=== PATIENT | female | born 1960 | race Caucasian/White ===

== ENCOUNTER → 2017-08-21 10:23 | Outpatient (CLI) | payer OTHER, SELFPAY ==
--- NOTE | 2017-08-21 10:29 | MM_ITS ---
MM Dig screening mamm BI w/CAD CAD Screening COMPARISON: Digital mammograms 07/26/2014 and 08/02/2016 INDICATION: There is a history of breast cancer in patient's paternal aunt. TECHNIQUE: Standard CC and MLO images were obtained. R2 CAD reviewed. FINDINGS: Scattered fibro glandular densities are seen throughout both breasts as noted previously. There is no suspicious lesion and no suspicious microcalcifications. IMPRESSION: Stable exam no suspicious lesion seen recommend yearly follow-up BI-RADS Category: 2 Benign Finding(s) RECOMMENDED FOLLOW-UP: 1YR - 1 YEAR FOLLOW-UP (A letter has been sent to the patient regarding results of the study.)
== END ==
PROVIDERS: Family Provider Family Medicine; PCP Family Medicine; Visit Provider Nurse Practitioner Obstetrics & Gynecology
DX: Z12.31 Encounter for screening mammogram for malignant neoplasm of breast (principal)
CPT/HCPCS: 77067

== ENCOUNTER → 2017-10-10 08:38 | Outpatient (CLI) | payer OTHER, SELFPAY ==
[2017-10-10 09:34] LABS: Basophils # 0.1 K/mm3 (0-0.2); Basophils % 0.7 % (0.1-2.0); Eosinophils # 0.2 K/mm3 (0.0-0.4); Eosinophils % 2.9 % (0.1-12.0); Hematocrit 42.1 % (37.0-47.0); Hemoglobin 13.8 g/dL (12.2-16.2); Lymphocytes # 2.1 K/mm3 (0.7-4.5); Lymphocytes % 31.6 K/mm3 (10-50); Mean Corpuscular HGB Conc 32.8 g/dL (31.8-35.4); Mean Corpuscular Volume 91.7 fl (81-99); Mean Platelet Volume 8.8 fl (7.4-10.4); Monocytes # 0.3 K/mm3 (0.1-1.0); Monocytes % 4.8 % (1.7-9.3); Platelet Count 297 K/mm3 (142-424); Red Blood Count 4.59 M/mm3 (4.20-5.40); Red Cell Distribution Width 12.3 % (11.5-17.5); White Blood Count 6.7 K/mm3 (4.8-10.8)
[2017-10-10 10:31] LABS: Alanine Aminotransferase 43 U/L (12-78); Albumin/Globulin Ratio 1.3 (1.1-1.8); Alkaline Phosphatase 87 U/L (46-116); Anion Gap 10.2 mEq/L (5-15); Aspartate Amino Transferase 16 U/L (15-37); Bilirubin,Total 0.4 mg/dL (0.2-1.0); Blood Urea Nitrogen 16 mg/dL (7-18); Calcium 9.1 mg/dL (8.5-10.1); Carbon Dioxide 30 mmol/L (21.0-32.0); Chloride 104 mmol/L (98-107); Chol/HDL Ratio 3.3 (1-3.5); Cholesterol 144 mg/dL (140-200); Creatinine,Serum 0.74 mg/dL (0.55-1.02); Estimated Glomerular Filt Rate 81 ml/min (>60); Free Thyroxine Index 2.7 ug/dL (5.93-13.13); GFR (African American) 98 ML/MIN (>60); Globulin 3.2 gm/dl (1.3-3.2); Glucose 94 mg/dL (74-106); HDL Cholesterol 44 mg/dL (29-89); LDL Cholesterol 78 mg/dL (0-130); Potassium 4.2 mmoL/L (3.5-5.1); Sodium 140 mmol/L (136-145); T4 (Thyroxine) 8.4 ug/dl (4.7-13.3); Thyroid Stimulating Hormone 1.95 uIU/ml (0.358-3.740); Total Protein,Serum 7.2 gm/dL (6.4-8.2); Triglycerides 110 mg/dL (30-200); Triiodothryronine (T3) Uptake 32 % (31-39); VLDL Cholesterol 22 mg/dL (0-40)
[2017-10-11 08:20] LABS: Thyroid Peroxidase Antibodies 8 IU/mL (0-34)
[2017-10-11 18:41] LABS: Triiodothyronine (T3) Free 3.5 pg/mL (2.0-4.4)
== END ==
PROVIDERS: Visit Provider Nurse Practitioner Obstetrics & Gynecology
DX: Z01.419 Encounter for gynecological examination (general) (routine) without abnormal findings (principal); R53.83 Other fatigue
CPT/HCPCS: 36415; 80053; 80061; 84436; 84443; 84479; 84481; 85025; 86376

== ENCOUNTER → 2018-08-24 08:14 | Outpatient (CLI) | payer OTHER, SELFPAY ==
--- NOTE | 2018-08-24 08:16 | MM_ITS ---
MM Dig screening mamm BI w/CAD CAD Screening COMPARISON: Digital mammograms with CAD 08/02/2016 and 08/21/2017 INDICATION: There is a history of breast cancer patient's paternal aunt. TECHNIQUE: Standard CC and MLO images were obtained. R2 CAD reviewed. FINDINGS: Scattered fibro glandular densities are seen in both breast. Slightly asymmetric increased glandular densities are seen upper outer quadrant left breast they are stable and unchanged from previous exams. There is no suspicious lesion and there are no suspicious microcalcifications. IMPRESSION: Fibrofatty parenchyma with no suspicious lesion seen BI-RADS Category: 1 Negative RECOMMENDED FOLLOW-UP: 1YR - 1 YEAR FOLLOW-UP (A letter has been sent to the patient regarding results of the study.)
== END ==
PROVIDERS: PCP Family Medicine; Visit Provider Nurse Practitioner Obstetrics & Gynecology
DX: Z12.31 Encounter for screening mammogram for malignant neoplasm of breast (principal)
CPT/HCPCS: 77067

== ENCOUNTER → 2019-09-06 08:21 | Outpatient (CLI) | payer OTHER, SELFPAY ==
--- NOTE | 2019-09-06 08:21 | MM_ITS ---
PROCEDURE: MM DIG SCREENING MAMM BI W/CAD Digital Breast Tomosynthesis Included CLINICAL INDICATION: screening xmg COMPARISON: MM MAMMO DIGITAL SCREENING W CAD BILAT from 08/02/2016 [facility] MM Dig screening mamm BI w/CAD from 08/21/2017 [facility] MM Dig screening mamm BI w/CAD from 08/24/2018 TECHNIQUE: Standard CC and MLO images and 3D Tomosynthesis was obtained. R2 CAD reviewed. FINDINGS: Scattered fibroglandular densities are seen in the central portions of both breasts. There is a stable tiny nodular density near the axillary tail left breast. There is no suspicious lesion and no suspicious microcalcifications. IMPRESSION: Fibrofatty parenchyma with no suspicious lesions seen BI-RAD Category: 2 Benign Finding(s) FOLLOW-UP: 1YR 1 Year Follow-up (A letter has been sent to the patient regarding results of the study.) Dictated by: Dr. Gregory Paris MD 09/06/2019 19:[address] Gregory Paris MD in [place] 09/06/2019 19:23
== END ==
PROVIDERS: PCP Family Medicine; Visit Provider Nurse Practitioner Obstetrics & Gynecology
DX: Z12.31 Encounter for screening mammogram for malignant neoplasm of breast (principal)
CPT/HCPCS: 77063; 77067

== ENCOUNTER → 2020-05-27 10:02 | Outpatient (CLI) | payer OTHER, SELFPAY ==
[2020-05-27 11:30] LABS: Coronavirus 19 IgG Antibody Negative (Negative); Coronavirus 19 IgM Antibody Negative (Negative)
== END ==
PROVIDERS: Visit Provider Internal Medicine Gastroenterology
DX: Z01.818 Encounter for other preprocedural examination (principal); Z11.52 Encounter for screening for COVID-19; Z12.11 Encounter for screening for malignant neoplasm of colon
CPT/HCPCS: 36415; 86328

== ENCOUNTER 2020-05-29 10:28 | Day surgery (SDC) | payer OTHER, SELFPAY ==
[2020-05-22 12:53] VITALS: BMI 26.7
[2020-05-29 10:51] VITALS: BP 129/68; PULSE 80; RESP 16; TEMP 36.1; O2SAT 99
[2020-05-29 11:10] VITALS: O2SAT 99
--- NOTE | 2020-05-29 11:15 | HMH.ANESCL ---
[facility] Anesthesia Checklist - Patient Identification Patient Identification: Arm Band - Structural Data Admitted From: Home Planned Operative Procedure/s: colonoscopy Consent for Planned Operative Procedure(s) Verified: Yes Verified Documents: Surgical Consent, History and Physical - NPO Status Verified Time NPO: 00:00 - Additional verifications Anesthesia Reactions: No - Airway Assessment C-Spine Mobility Assessed: Yes (mp2) TMJ Mobility Assessed: Yes Dentition: Good Dentition - Neurological Assessment Level of Consciousness: Awake, Alert - Anesthesia Plan Anesthesia Risk discussed: Yes Anesthesia Plan: Verified ASA Class: II Anesthesia Type: MAC [facility] History I have reviewed the patient's past medical history: Yes Medical History: Reports:: Hyperlipidemia Denies:: Cancer, Diabetes Mellitus Type 1, Diabetes Mellitus Type 2, Internal Pacemaker, MRSA, Seizures *Have you ever received a pneumonia vaccine?: No *Have you received a flu vaccine this season?: Yes Anesthesia experience/problems:: nac Other Surgeries: Yes: Hysterectomy-Total, Tubal Ligation. No: Pacemaker Amputation: No Fractures: No - *Social History Last grade of school completed: Some college Smoking Status: Former smoker Smoking End Date: 05/06/1990 Alcohol Intake: never Substance Use Type: denies use *Occupational Status:: retired Housing: house Household Members: spouse *Travel in the last 8 weeks: None Family Hx:: Heart Attack, Stroke FLYER MAKER history: Tubal Ligation
--- NOTE | 2020-05-29 11:42 | P.PCN_ITS ---
[facility] Procedure Note Procedure Note:: Colonoscopy Procedure Report: Colonoscopy Endoscopist: Scottie Vila II, MD Referring physician: Berny Reynoso MD Date of Procedure: May 29, 2020 Equipment: Olympus 180 variable stiffness pediatric colonoscope Sedation: MAC sedation Indication: Mrs. Meng is a 59-year-old female who is here for screening/surveillance colonoscopy. She did have a colonoscopy 7 to 8 years ago which was normal. She does state that she did not have a complete bowel preparation at that time. She reports no abdominal pain, weight loss, change in bowel habits or family history of colon cancer. She does have some mild chronic constipation. She does report some occasional hemorrhoidal bleeding. Procedure: Prior to the procedure, a history and physical exam was performed, and patient's medications and allergies were reviewed. The risks, benefits and alternatives of the sedation and procedure were discussed with the patient. All questions were answered and informed consent was obtained. The patient was brought to the procedure room. Patient identification and proposed procedure were verified by the physician and the nurse. The patient was placed in a left lateral decubitus position and the scope was passed under direct vision. Throughout the procedure, the patient's blood pressure, pulse, and oxygen saturations were monitored continuously. The colonoscopy was accomplished without difficulty. The patient tolerated the procedure well. Findings: On digital rectal examination there was normal rectal tone. There were no external hemorrhoids. The colonoscope was introduced through the anal canal to the rectum and advanced to the cecum. The ileocecal valve and appendiceal orifice were identified. The scope was advanced a short distance into the ileum which appeared grossly normal. The scope was then withdrawn into the colon. The cecum, ascending and transverse colon and mucosa were grossly normal. There were scattered diverticuli throughout the descending and sigmoid colon (LEFT colon). The rectum itself was normal. Upon retroflexion within the rectum there were grade 1-2 internal hemorrhoids. The preparation was good throughout with Sharon Preparation Score of 8 out of 9. The cecal time was 10 minutes. Impression: 1. Left-sided diverticulosis 2. Grade 1-2 internal hemorrhoids Plan: The patient will not require screening/surveillance colonoscopy again for 10 years by ACS guidelines. I would encourage/recommend a fiber bowel regimen on a long-term daily maintenance basis.
[2020-05-29 11:43] VITALS: BP 91/45; PULSE 58; RESP 12; TEMP 36.2; O2SAT 97
[2020-05-29 11:53] VITALS: BP 100/51; PULSE 52; RESP 12; O2SAT 99
[2020-05-29 12:03] VITALS: BP 132/56; PULSE 68; RESP 16; O2SAT 100
[2020-05-29 12:13] VITALS: BP 121/65; PULSE 65; RESP 16; TEMP 36.2; O2SAT 99
== END 2020-05-29 12:15 | disposition home or self-care (01) ==
LOC: OUTP 10:29
PROVIDERS: PCP Family Medicine; Visit Provider Internal Medicine Gastroenterology
PROC: 0DJD8ZZ Inspection of Lower Intestinal Tract, Via Natural or Artificial Opening Endoscopic (ICD-10-PCS; CPT 45378; principal; 2020-05-29 11:30)
DX: Z12.11 Encounter for screening for malignant neoplasm of colon (principal); K57.30 Diverticulosis of large intestine without perforation or abscess without bleeding; K64.0 First degree hemorrhoids; E78.5 Hyperlipidemia, unspecified; Z90.710 Acquired absence of both cervix and uterus; Z87.891 Personal history of nicotine dependence; Z82.3 Family history of stroke
CPT/HCPCS: 45378

== ENCOUNTER → 2020-09-06 07:45 | Outpatient (CLI) | payer OTHER, SELFPAY ==
--- NOTE | 2020-09-06 07:49 | MM_ITS ---
PROCEDURE: MM DIG SCREENING MAMM BI W/CAD Digital Breast Tomosynthesis Included CLINICAL INDICATION: screening xmg There is no personal or family history of breast cancer. The patient currently is on estrogen. COMPARISON: [facility] MM Dig screening mamm BI w/CAD from 08/21/2017 [facility] MM Dig screening mamm BI w/CAD from 08/24/2018 MG MM DIG SCREENING MAMM BI W/CAD from 09/06/2019 TECHNIQUE: Standard CC and MLO images and 3D Tomosynthesis was obtained. R2 CAD reviewed. FINDINGS: Mild scattered fibroglandular densities are seen in both breast and the findings are bilateral and symmetrical. A stable tiny benign-appearing nodular density axillary tail left breast. There are no CAD markings. There are couple of benign-appearing microcalcifications in each breast. There is no suspicious lesion and no suspicious microcalcifications. IMPRESSION: Stable exam with moderate breast density and no suspicious lesions seen BI-RAD Category: 2 Benign Finding(s) FOLLOW-UP: 1YR 1 Year Follow-up (A letter has been sent to the patient regarding results of the study.) Dictated by: Dr. Gregory Paris MD 09/08/2020 11:41 Dr. Gregory Paris MD in [place] 09/08/2020 11:41
== END ==
PROVIDERS: PCP Family Medicine; Visit Provider Nurse Practitioner Obstetrics & Gynecology
DX: Z12.31 Encounter for screening mammogram for malignant neoplasm of breast (principal)
CPT/HCPCS: 77063; 77067

== ENCOUNTER → 2021-05-31 11:07 | Outpatient (CLI) | payer OTHER, SELFPAY ==
[2021-05-31 11:37] LABS: Adenovirus,PCR Not Detected (NotDetected); Bordetella Pertussis Not Detected (NotDetected); Chlamydophila Pneumoniae, PCR Not Detected (NotDetected); Coronavirus 229E Not Detected (NotDetected); Coronavirus NL63 Not Detected (NotDetected); Coronavirus OC43 Not Detected (NotDetected); Coronovirus HKU1,PCR Not Detected (NotDetected); Influenza A, PCR Not Detected (NotDetected); Influenza AH1, 2009 Not Detected (NotDetected); Influenza AH1, PCR Not Detected (NotDetected); Influenza AH3,PCR Not Detected (NotDetected); Influenza B, PCR Not Detected (NotDetected); Mycoplasma Pneumoniae, PCR Not Detected (NotDetected); Parainfluenza 1, PCR Not Detected (NotDetected); Parainfluenza 2, PCR Not Detected (NotDetected); Parainfluenza 3, PCR Not Detected (NotDetected); Parainfluenza 4, PCR Not Detected (NotDetected); Respiratory Syncytial Virus Not Detected (NotDetected); Rhinovirus/Enterovirus Not Detected (NotDetected)
[2021-05-31 11:48] LABS: Basophils # 0.1 K/mm3 (0-0.2); Basophils % 1.4 % (0.1-2.0); Eosinophils # 0.2 K/mm3 (0.0-0.4); Eosinophils % 4.9 % (0.1-12.0); Hematocrit 41.9 % (37.0-47.0); Hemoglobin 13.5 g/dL (12.2-16.2); Lymphocytes # 1.4 K/mm3 (0.7-4.5); Lymphocytes % 32.6 % (10-50); Mean Corpuscular HGB Conc 32.3 g/dL (31.8-35.4); Mean Corpuscular Hemoglobin 30.4 pg (27.0-31.2); Mean Corpuscular Volume 94.1 fl (81-99); Mean Platelet Volume 9.8 fl (7.4-10.4); Monocytes # 0.3 K/mm3 (0.1-1.0); Monocytes % 6.2 % (1.7-9.3); Neutrophils # 2.3 K/mm3 (1.8-7.8); Neutrophils % 54.8 % (37.0-80.0); Platelet Count 231 K/mm3 (142-424); Red Blood Count 4.46 M/mm3 (4.20-5.40); Red Cell Distribution Width 12.7 % (11.5-17.5); White Blood Count 4.2 K/mm3 (4.8-10.8)
[2021-05-31 16:39] LABS: Human Metapneumovirus Detected (NotDetected)
== END ==
PROVIDERS: PCP Family Medicine; Visit Provider Physician Assistant
DX: Z20.822 Contact with and (suspected) exposure to COVID-19 (principal); B97.81 Human metapneumovirus as the cause of diseases classified elsewhere
CPT/HCPCS: 36415; 85025; 87486; 87581; 87632; 87798; C9803; U0003; U0005

== ENCOUNTER → 2021-09-07 10:16 | Outpatient (CLI) | payer SELFPAY ==
--- NOTE | 2021-09-07 10:20 | MM_ITS ---
PROCEDURE INFORMATION: Exam: MG Bilateral Screening 3D Mammography Exam date and time: 09/07/2021 10:21 AM Age: 60 years old Clinical indication: Screening examination TECHNIQUE: Imaging protocol: Bilateral Screening tomosynthesis and 2D mammography including computer-aided detection (CAD) when performed. COMPARISON: 1. MG MM DIG SCREENING MAMM BI W/CAD 09/06/2020 8:07 AM 2. MG MM DIG SCREENING MAMM BI W/CAD 09/06/2019 8:28 AM FINDINGS: MAMMOGRAPHY: Breast composition: The breast tissue is composed of scattered areas of fibroglandular density. Mass: None. Architectural distortion: None. Calcifications: No suspicious calcifications. Asymmetric density: None. Skin thickening: None. Axillary adenopathy: None. IMPRESSION: No mammographic evidence of malignancy. Annual screening is recommended unless otherwise clinically indicated. ASSESSMENT: BI-RADS Category 1: Negative
== END ==
PROVIDERS: PCP Family Medicine; Visit Provider Nurse Practitioner Obstetrics & Gynecology
DX: Z12.31 Encounter for screening mammogram for malignant neoplasm of breast (principal)
CPT/HCPCS: 77063; 77067

== ENCOUNTER 2023-11-03 09:46 | Outpatient (CLI) | payer BC, SELFPAY ==
--- NOTE | 2023-11-03 09:47 | MM_ITS ---
PROCEDURE INFORMATION: Exam: MG Bilateral Screening 3D Mammography Exam date and time: 11/03/2023 9:50 AM Age: 62 years old Clinical indication: Screening examination TECHNIQUE: Imaging protocol: Bilateral Screening tomosynthesis and 2D mammography including computer-aided detection (CAD) when performed. COMPARISON: 1. MG MM DIG SCREENING MAMM BI W/CAD 09/07/2021 10:21 AM 2. MG MM DIG SCREENING MAMM BI W/CAD 09/06/2020 8:07 AM FINDINGS: MAMMOGRAPHY: Breast composition: There are scattered areas of fibroglandular density. Mass: None. Architectural distortion: None. Calcifications: No suspicious calcifications. Asymmetric density: None. Skin thickening: None. Axillary adenopathy: None. IMPRESSION: No mammographic evidence of malignancy. Annual screening is recommended unless otherwise clinically indicated. ASSESSMENT: BI-RADS Category 1: Negative
== END 2023-11-03 23:59 | disposition home or self-care (01) ==
LOC: RAD 09:47
PROVIDERS: PCP Family Medicine; Visit Provider Nurse Practitioner Obstetrics & Gynecology
DX: Z12.31 Encounter for screening mammogram for malignant neoplasm of breast (principal)
CPT/HCPCS: 77063; 77067

== ENCOUNTER 2024-01-08 08:47 | Outpatient (CLI) | payer BC, SELFPAY ==
--- OUTSIDE RECORDS SUMMARY | 2024-01-08 08:50 | XMS_ITS ---
Author Organization [facility] Address [address] [facility] [address] [place] [id number] Care Team Providers Care Demonstrator Sales Name Role Phone Berny Reynoso Primary Care Provider Cheryle Brownlee Unavailable [phone] REASON FOR VISIT blood work MEDICATIONS Medication SIG (Take, Route, Frequency, Duration) Notes [...] Active Encounters Encounter Location Date Provider Diagnosis [place] [address] [place] [id number] 01/08/2024 Cheryle Brownlee Hyperlipidemia E78.5 and Weight loss R63.4 ASSESSMENTS Encounter Date Diagnosis Assessment Notes Treatment Notes Treatment Clinical Notes 01/08/2024 Hyperlipidemia (ICD-10 - E78.5) 01/08/2024 Weight loss (ICD-10 - R63.4) PLAN OF TREATMENT Pending Test Test Name Order Date H-TSH 01/08/2024 H-Lipid Panel 01/08/2024 H-CMP 01/08/2024 H-Glycohemoglobin A1C 01/08/2024 Next Appt Details Provider Name:Cheryle sheehan, 01/08/2024 08:15:00 AM, [address] [facility], [address], [place], [id number],
--- OUTSIDE RECORDS SUMMARY | 2024-01-08 08:50 | XMS_ITS ---
Author Organization [place] Address [address] [facility] [address] [place] [id number] Care Team Providers Care Automotive Design Layout Drafter Name Role Phone Berny Reynoso Primary Care Provider Cheryle Brownlee Unavailable [phone] ALLERGIES No Known Allergies REASON FOR VISIT spot on neck and discuss weight loss MEDICATIONS Medication SIG (Take, Route, Frequency, Duration) Notes Start Date End Date Status Sertraline HCl 25 MG Take 1 tablet by mo [facility] once daily for 90 Active Diflucan 150 MG 1 tablet Orally qd f or 1 day 01/06/2024 Active Wegovy 1 MG/0.5ML 0.5 ml Subcutaneous weekly for 30 day(s) 01/06/2024 Active Doxycycline Monohydrate 100 MG 1 capsule Orally Twice a day for 14 day(s) 01/06/2024 Active Omeprazole 40 MG 1 capsule Orally at bedtime Active Simvastatin 40 MG TAKE 1 TABLET BY CHASITY ONCE DAILY AT BEDTIME for 90 days Active VITAL SIGNS Weight 191 lbs 01/06/2024 Blood pressure systolic 122 mm Hg 01/06/20 24 Blood pressure diastolic 82 mm Hg 024 Heart Rate 62 /min 01/06/2024 Height 68 in 01/06/2024 BMI 29.04 kg/m2 01/06/2024 Encounters Encounter Location Date Provider Diagnosis [place] [address] [facility] [address] [place] [id number] 01/06/2024 Cheryle Brownlee Weight loss R63.4 ; Tick bite W57.XXXA and Hyperlipidemia E78.5 ASSESSMENTS Encounter Date Diagnosis Assessment Notes Treatment Notes Treatment Clinical Notes 01/06/2024 Weight loss (ICD-10 - R63.4) discussed healthy eating with food choices and portion sizes; also discussed ongoing exercise 01/06/2024 Tick bite (ICD-10 - W57.XXXA) 01/06/2024 Hyperlipidemia (ICD-10 - E78.5) 01/06/2024 Other to RTC fasting for CMP, A1c TSH, and Lipids PLAN OF TREATMENT Medication Medication Name Sig Start Date Stop Date Notes Diflucan 150 MG 1 tablet Orally qd for 1 day 01/06/2024 Wegovy 1 MG/0.5ML 0.5 ml Subcutaneous weekly for 30 day(s) 01/06/2024 Doxycycline Monohydrate 100 MG 1 capsule Orally Twice a day for 14 day(s) 01/06/2024 Treatment Notes Assessment Notes Weight loss discussed healthy ea ting with food choices and portion sizes; also discussed ongoing exercise Other to RTC fasting for C MP, A1c TSH, and Lipids Next Appt Details Follow Up: 4 weeks after sta rting med, Reason: Provider Name:Cheryle Shae sheehan, 01/08/2024 08:15:00 AM, [address] [facility] [address] [facility], [address], [place], [place], [id number], Progress Notes * Examination Category Sub-Category Detail Notes General Examination Heart: RRR Lungs: CTAB A&P General Appearance: NAD, appears healthy , alert, pleasant, well nourished and hydrated Skin: flesh colored papule on upper mid back; no erythema or edema; NTTP; no rashes Neurologic Exam: alert and oriented
--- OUTSIDE RECORDS SUMMARY | 2024-01-08 08:50 | XMS_ITS ---
Author Organization [facility] Address [address] [facility] 36 [facility] [address] [place] [id number] Care Team Providers Care Global Marketing Manager Name Role Phone Berny Reynoso Primary Care Provider Cheryle Brownlee Unavailable [phone] REASON FOR VISIT Message MEDICATIONS Medication SIG (Take, Route, Fr equency, Duration) Notes Start Date End Date Status Zepbound 2.5 MG/0.5ML 0.5 mL Subcutaneou s weekly for 30 day(s) 01/07/2024 Active Encounters Encounter Location Date Provider Diagnosis [facility] [address] [facility] [address] [place] [id number] 01/07/2024 Cheryle Brownlee PLAN OF TREATMENT Medication Medication Name Sig Start Date Stop Date Notes Zepbound 2.5 MG/0.5ML 0.5 mL Subcutaneou s weekly for 30 day(s) 01/07/2024 Next Appt Details Provider Name:Cheryle sheehan, 01/08/2024 08:15:00 AM, [address], [address], [place], [phone],
--- OUTSIDE RECORDS SUMMARY | 2024-01-08 08:51 | XMS_ITS | Patient Health Record ---
Author Organization [facility] Address [address] [facility] [address] [id number] Care Team Providers Care Commissioned Police Officer Name Role Phone Berny Reynoso Primary Care Provider Cheryle Brownlee Unavailable [phone] Rylie Mclean Unavailable [phone] ALLERGIES No Known Allergies RESULTS Component Value Reference Range Notes CBC Venipuncture (in house) Reviewed date:05/22/2023 11:09:11 AM Interpretation: Performing Lab: Notes/Report: wbc 5.5 3.5 - 10 lymph 33.2 15 - 50 mid 7.7 2 - 15 gran 59.1 35 - 80 rbc 4.50 3.5 - 5.5 hgb 13.4 11.5 - 16.5 hct 40.4 35 - 55 mcv 89.7 75 - 100 mch 29.7 25 - 35 mchc 33.1 31 - 38 platlet 278 100 - 400 P-Amylase Reviewed date:05/23/2023 08:36:06 AM Interpretation: Performing Lab: Notes/Report: Test performed by [email or web address] [address] [place] [address] , [address], [place] [address] Andres Koroma MD, Signal And Communications Maintainer CLIA: [id number] Amylase 30 28-100 U/L P-Comprehensive Metabolic Pa faizan (CMP) Reviewed date:05/23/2023 08:36:06 AM Interpretation:glucose 118, not fasting Performing Lab: Notes/Report: Test performed by [email or web address] [address] [place] [address] , [address], [place] [address] Andres Koroma MD, [employer] Maintainer CLIA: [id number] Sodium 142 135-145 mEq/L Potassium 4.2 3.5-5.3 mEq/L Chloride 105 97-108 mEq/L CO2 25 22-32 mEq/L Glucose 118 65-99 mg/dL BUN 16 8-23 mg/dL Creatinine 0.80 0.50-1.00 mg/dL Calcium 9.6 8.6-10.4 mg/dL eGFR by Creatinine 83 >59 mL/min/1.73m2 Protein 7.5 6.0-8.3 g/dL Albumin 4.7 3.5-5.3 g/dL Alkaline Phosphatase 95 35-121 IU/L ALT (SGPT) 21 <5-47 IU/L AST (SGOT) 21 <5-40 IU/L Bilirubin, Total 0.4 <0.2-1.2 mg/dL A/G Ratio 1.7 1.1-2.5 mg/dL P-Lipase Reviewed date:05/23/2023 08:36:06 AM Interpretation: Performing Lab: Notes/Report: Test performed by [email or web address] [address] [place] [address] , [place] [address] Andres Koroma MD, Signal [employer] Maintainer CLIA: [id number] Lipase 32.0 13.0-60.0 u/L P-TSH reflex to FT4 Reviewed date:05/23/2023 08:36:06 AM Interpretation: Performing Lab: Notes/Report: Test performed by [email or web address] [address] [place] [address] , [address], [place] [id number] Andres Koroma MD, [employer] Maintainer CLIA: [id number] TSH reflex to FT4 1.96 0.43-5.25 mU/L Urinalysis - Inhouse Reviewed date:01/29/2023 09:14:24 AM Interpretation: Performing Lab: Notes/Report: Color/Clarity yellow/clear Leuk 1+ Nitrite neg Urobili 3.2 Protein neg pH 5.5 Blood neg Sp. Gr. 1.025 Ketone neg Bili neg Gluc neg bacteria WBC RBC P-Culture, Urine Reviewed date:01/31/2023 09:12:51 AM Interpretation:No sign growth Performing Lab: Notes/Report: Test performed by [email or web address] [address] [place] [address] , [address], [place] [address] Andres Koroma MD, Signal And Communications Maintainer CLIA: [id number] Specimen Source Urine - Void Culture, Urine See Below No Significan t Growth CBC Venipuncture (in house) Reviewed date:02/05/2023 09:19:12 AM Interpretation:Normal Performing Lab: Notes/Report: Normal wbc 7.8 3.5 - 10 lymph 33.6 15 - 50 mid 7.4 2 - 15 gran 59.0 35 - 80 rbc 4.64 3.5 - 5.5 hgb 14.0 11.5 - 16.5 hct 41.2 35 - 55 mcv 88.9 75 - 100 mch 30.3 25 - 35 mchc 34.0 31 - 38 platlet 299 100 - 400 Lipid Panel (in house) Reviewed date:02/05/2023 09:14:59 AM Interpretation:LDL 100 TG 138 HDL 54 Performing Lab: Notes/Report: LDL 100 TG 138 HDL 54 Total Cholesterol 182 0 - 200 md/dL HDL 54 45 - 45 mg/dL Trigs 138 0 - 150 LDL 100 0 - 100 mg/dL non-HDL 128 TC/HDL 3.4 P-Comprehensive Metabolic Pa faizan (CMP) Reviewed date:02/05/2023 09:18:55 AM Interpretation:Normal Performing Lab: Notes/Report: Test performed by [email or web address] [address] [place] [address] , [address], [place] [address] Andres Krooma MD, Signal And [employer] Maintainer CLIA: [id number] Sodium 141 135-145 mEq/L Potassium 4.7 3.5-5.3 mEq/L Chloride 103 97-108 mEq/L CO2 28 22-32 mEq/L Glucose 94 65-99 mg/dL BUN 16 8-23 mg/dL Creatinine 0.80 0.50-1.00 mg/dL Calcium 9.4 8.6-10.4 mg/dL eGFR by Creatinine 83 >59 mL/min/1.73m2 Protein 6.9 6.0-8.3 g/dL Albumin 4.5 3.5-5.3 g/dL Alkaline Phosphatase 92 35-121 IU/L ALT (SGPT) 26 <5-47 IU/L AST (SGOT) 18 <5-40 IU/L Bilirubin, Total 0.5 <0.2-1.2 mg/dL A/G Ratio 1.9 1.1-2.5 mg/dL P-TSH Reviewed date:02/05/2023 09:18:37 AM Interpretation:2.54 Performing Lab: Notes/Report: Test performed by [facility], [address] , [address], [place] [address] Andres Koroma MD, Signal And Communications Maintainer CLIA: [id number] TSH 2.54 0.43-5.25 mU/L TEN-stool panel Reviewed date:06/19/2023 01:23:38 PM Interpretation:Bacillus Cereus - Positive Performing Lab: Notes/Report: Bacillus Cereus - Positive MEDICATIONS Medication SIG (Take, Route, Frequency, Duration) Notes Start Date End Date Status Omeprazole 40 MG 1 capsule Orally at bedtime Active Wegovy 1 MG/0.5ML 0.5 ml Subcutaneous weekly for 30 day(s) 01/06/2024 Active Doxycycline Monohydrate 100 MG 1 capsule Orally Twice a day for 14 day(s) 01/06/2024 Active Simvastatin 40 MG TAKE 1 TABLET BY CHASITY TH ONCE DAILY AT BEDTIME for 90 days Active Sertraline HCl 25 MG Take 1 tablet by mo uth once daily for 90 Active Diflucan 150 MG 1 tablet Orally qd f or 1 day 01/06/2024 Active Zepbound 2.5 MG/0.5ML 0.5 mL Subcutaneou s weekly for 30 day(s) 01/07/2024 Active IMMUNIZATIONS Vaccine Route Administration Date Status Comme nts COVID 19 Shavon Unknown 08/02/2020 Administered COVID 19 Moderna Unknown 04/14/2021 Administered Fluzone Intradermal Quad private(18-64yrs) IM Intramuscular 01/30/2022 Administered Fluzone Intradermal Quad private(18-64yrs) IM Intramuscular 02/25/2023 Administered Fluzone PF Quad (6-35 months) Unknown 02/25/2017 Administered Fluzone PF Quad (6-35 months) Unknown 04/14/2021 Administered Fluzone Quad (6months&older) IM Intramuscular 02/25/2018 Administered Hepatitis A (adult) IM Intramuscular 02/25/2019 Administer ed Shingrix IM Intramuscular 05/02/2021 Administered Shingrix IM Intramuscular 01/30/2022 Administered xFlu shot- 6months-36 months of dll-[id number]-IHQS-trivalent Unknown 03/22/2016 Administered xFlu shot-36 months and older IM Intramuscular 04/30/2005 Administered xFlu shot-36 months and older Unknown 03/22/2016 Administered SOCIAL HISTORY Sex Assigned At : Social History Observation Description Sex Assigned At Unknown PROBLEMS Problem Type ICD Code Onset Dates Problem Status W/U Status Risk SNOMED Code Notes Problem Hyperlipidemia (272.4) Active confirmed Hyperlipidemia (89243410) Problem Insomnia (G47.00) Active confirmed Inso mnia (794466848) Problem Hyperlipidemia (E78.5) Active confirmed Hyperlipidemia (63319789) Problem Paresthesia (R20.2) Active confirmed Pa resthesia (51073713) Problem Flank pain (R10.9) Active confirmed Fla nk pain (374736679) Problem Polyarthritis (M13.0) Active confirmed Polyarthritis (688426806) Problem Pure hypercholesterolemia (E78.00) Active confirmed 982546118 Problem Urge incontinence of urine (N39.41) Active confirmed 08894188 Problem Gastroesophageal reflux disease, unspecified whether esophagitis present (K21.9) Active confirmed 656196390 VITAL SIGNS Heart Rate 62 /min 01/06/2024 Blood pressure diastolic 82 mm Hg 01/06/2024 Height 68 in 01/06/2024 Blood pressure systolic 122 mm Hg 01/06/2024 Weight 191 lbs 01/06/2024 BMI 29.04 kg/m2 01/06/2024 Encounters Encounter Location Date Provider Diagnosis [facility] [facility] [address] [facility] [address] [place] [id number] 01/28/2023 Cheryle Brownlee Pure hypercholesterolemia E78.00 ; Insomnia G47.00 ; Depression 311 and Urinary frequency R35.0 [facility] [address] [facility] [address] [place] [id number] 02/03/2023 Cheryle Brownlee Pure hypercholesterolemia E78.00 [facility] [address] [facility] [address] [place] [id number] 02/05/2023 Cheryle Brownlee [facility] [address] [place], [place] [id number] 02/25/2023 Cheryle Brownlee Candidiasis of perineum B37.49 ; Depression 311 and Candidiasis of breast B37.89 [facility] [address] [place], [place] [phone] 05/22/2023 Rylie Crowdy Chronic diarrhea K52 .9 ; Acute URI J06.9 and Gastroesophageal reflux disease, unspecified whether esophagitis present K21.9 [facility] [address] [place], [place] [id number] 05/23/2023 Rylie Crowdy [facility] [address] [place], [place] [id number] 06/11/2023 Rylie Muralidy [facility] [address] [place], [place] [id number] 06/16/2023 Rylie Muralidy [facility] [address] [place], [place] [id number] 01/06/2024 Cheryle Brownlee Weight loss R63.4 ; Tick bite W57.XXXA and Hyperlipidemia E78.5 [facility] [address] [place], [place] [id number] 01/07/2024 Cheryle Brownlee [facility] [address] [place], [place] [id number] 01/08/2024 Cheryle Brownlee Hyperlipidemia E78.5 and Weight loss R63.4 ASSESSMENTS Encounter Date Diagnosis Assessment Notes Treatment Notes Treatment Clinical Notes 01/28/2023 Pure hypercholestero lemia (ICD-10 - E78.00) 02/03/2023 Pure hypercholestero lemia (ICD-10 - E78.00) 02/25/2023 Depression (ICD-10 - 311) sl eeping better and will take trazodone prn 02/25/2023 Candidiasis of perin eum (ICD-10 - B37.49) keep areas dry 05/22/2023 Acute URI (ICD-10 - J06.9) 05/22/2023 Chronic diarrhea (IC D-10 - K52.9) Had a c-scope in 2019 which was normal other than hemorroids and diverticulosis. She does not require another one for 10 years. Will get labs and a stool panel to r/o infection. Pt will bring stool sample for TEN 01/06/2024 Weight loss (ICD-10 - R63.4) discussed healthy eating with food choices and portion sizes; also discussed ongoing exercise 01/06/2024 Tick bite (ICD-10 - W57.XXXA) 01/28/2023 Insomnia (ICD-10 - G47.00) s leep hygiene reviewed; suggested no caffeine after 4 PM and to eat lightly in the PM 01/08/2024 Hyperlipidemia (ICD- 10 - E78.5) 05/22/2023 Gastroesophageal ref lux disease, unspecified whether esophagitis present (ICD-10 - K21.9) 01/06/2024 Hyperlipidemia (ICD- 10 - E78.5) 02/25/2023 Candidiasis of breas t (ICD-10 - B37.89) keep areas dry 01/28/2023 Depression (ICD-10 - 311) 01/08/2024 Weight loss (ICD-10 - R63.4) 01/28/2023 Urinary frequency (I CD-10 - R35.0) 01/28/2023 Other will RTC for fasting labs to include CBC, CMP, TSH, LIPIDS; with return visit would like something to assist with weight loss 02/25/2023 Other lab results reviewed with pt 01/06/2024 Other to RTC fasting for CMP, A1c TSH, and Lipids PLAN OF TREATMENT Pending Test Test Name Order Date H-TSH 01/08/2024 H-Lipid Panel 01/08/2024 H-CMP 01/08/2024 H-Glycohemoglobin A1C 01/08/2024 Next Appt Details Provider Name:Cheryle sheehan, 01/08/2024 08:15:00 AM, [address], [address], [place], [phone], Insurance Providers Payer Name Payer Address Payer Phone Subscriber Number Group Number Insured Name Patient Relationship to Insured Coverage Start Date Coverage End Date JUDI [employer] [address] [place] [address] [phone] [id number] JESSICA BONILLA Self - patient is the insured MEDICATIONS ADMINISTERED Medication Instructions Date of Administration Dosage Notes B-12 02/16/2010 1 mL Depo- Medrol 40 mg/ml 02/01/2011 1 mL Dexamethasone 06/09/2006 1 mL Dexamethasone 04/11/2007 1 mL Dexamethasone 02/15/2009 1 cm3 Dexamethasone 05/22/2010 1 mL Dexamethasone 04/25/2014 1 mL Dexamethasone 05/17/2014 1 mL Dexamethasone 10/10/2018 1 mL MEDICAL (GENERAL) HISTORY Medical History History ICD Code hyperlipidemia Surgical History Surgery Date(Month/Year) hysterectomy abdominal Hospitalization History Reason Date(Month/Year) [facility] chest pains 06/06/13
[2024-01-08 09:54] LABS: Hemoglobin A1C 5.7 % (4.0-6.0)
[2024-01-08 09:59] LABS: Cholesterol 175 mg/dl (140-200); HDL Cholesterol 58 mg/dl (40-60); Triglycerides 127 mg/dl (30-150); VLDL Cholesterol 25 mg/dL (0-40)
[2024-01-08 10:10] LABS: Direct LDL Cholesterol 73.07 mg/dL (100-129)
[2024-01-08 10:29] LABS: Thyroid Stimulating Hormone 2.39 uIU/mL (0.465-4.68)
== END 2024-01-08 23:59 | disposition home or self-care (01) ==
LOC: LAB 08:48
PROVIDERS: PCP Family Medicine; Visit Provider Nurse Practitioner Family
DX: E78.5 Hyperlipidemia, unspecified (principal); R63.4 Abnormal weight loss
CPT/HCPCS: 36415; 80061; 83036; 84443

== ENCOUNTER 2024-11-03 07:56 | Outpatient (CLI) | payer BC, SELFPAY ==
--- OUTSIDE RECORDS SUMMARY | 2024-01-08 04:15 | XMS_ITS ---
Author Organization [facility] Address [address] [facility] [address] [id number] Care Team Providers Care Shutdown Coordinator Name Role Phone Berny Reynoso Primary Care Provider [phone] Cheryle Brownlee Unavailable [phone] Results Component Value Reference Range Notes H-TSH [...] Active Encounters Encounter Location Date Provider Diagnosis [facility] [address] [facility] [address], [place] [id number] 01/08/2024 Cheryle Brownlee Hyperlipidemia E78.5 and Weight loss R63.4 Assessments Encounter Date Diagnosis (ICD Code) Assessment Notes Treatment Notes Treatment Clinical Notes Section Notes 01/08/2024 Hyperlipidemia (ICD-10 - E78.5) 01/08/2024 Weight loss (ICD-10 - R63.4) Plan Of Treatment No Information Progress Notes * IRENEJESSICADOB:1960 (63 yo F)Acc No.[id number]:01/08/2024 Patient: JESSICA RAMAN Provider: CRISTA Johnson :1960 A ge:63 Y S ex:Female Date:01/08/2024 Address:[address] [place] [address], [place], [id number] Pcp:Berny Reynoso Subjective: * Chief Complaints: * [...] T SH 2.39 0.465-4.68 - uIU/mL * hCeryle Brownlee 01/12/2024 9:02:56 AM > , results reviewed with patient ?LAB: H-Glycohemoglobin A1C (Collection Date & Time - 01/08/2024 08:51 AM)? 5.7* Value Reference Range H GBA1C 5.7 4.0-6.0 - % * Cheryle Brownlee 01/12/2024 9:20:05 AM > , results reviewed with patient * Billing Information: * Visit Code: * Procedure Codes: * Electronic signature of Kiki Brownlee APRN on 11/03/2024 at 07:58 AM EDT Sign off status: Pending * Provider: CRISTA Johnson Date: 0 01/08/2024 Generated for Hoda norman/Lisset/eTransmitting on: 0 11/03/2024 07:58 AM EDT
--- OUTSIDE RECORDS SUMMARY | 2024-05-05 09:45 | XMS_ITS ---
Author Organization [facility] Address [facility] [facility] [address] [id number] Care Team Providers Care Sales And Marketing Assistant Name Role Phone Berny Reynoso Primary Care Provider Rylie Mclean Unavailable [phone] Allergies No Known Allergies Results Component Value [...] mo uth once daily Orally Once a day for 90 days Active Simvastatin 40 MG TAKE 1 TABLET BY CHASITY TH AT BEDTIME for 90 Active Doxycycline Monohydrate 100 MG 1 capsule Orally Twice a day for 14 day(s) 01/06/2024 Not-Taking Diflucan 150 MG 1 tablet Orally qd f or 1 day 01/06/2024 Not-Taking Omeprazole 40 MG 1 capsule Orally at bedtime Active Vital Signs Blood pressure systolic 128 mm Hg 05/05/20 24 Blood pressure diastolic 68 mm Hg 024 Heart Rate 88 /min 05/05/2024 Height 68 in 05/05/2024 Weight 197.8 lbs 05/05/2024 BMI 30.07 kg/m2 05/05/2024 Encounters Encounter Location Date Provider Diagnosis [facility] [address] [place], [place] [phone] 05/05/2024 Rylie Mclean Acute URI J06.9 Assessments [...] prn, Reason: Progress Notes * JESSICA BONILLADOB:1960 (63 yo F)Acc No.[id number]:05/05/2024 Progress Notes Patient: JESSICA RAMAN Provider: GOKUL Horowitz :1960 A ge:63 Y S ex:Female Date:05/05/2024 Address:[address] [place] [address], [place], [place] Pcp:Berny Reynoso Subjective: * Chief Complaints: * [...] Examination: E NT/Respiratory: General Appearance: N AD. Ears: a uditory canals normal bilaterally, TM's WNL. Nose : turbinates red, congested. Sinuses : non tender bilaterally. Oral cavity : erythema without exudate on pharynx, PND present. Neck : n o cervical lymphadenopathy. Heart : R RR, normal S1 S2, no murmurs. Lungs: c lear to auscultation bilaterally. Assessment: * Assessment: 1. Kameron starks URI - J06.9 (Primary) Plan: * Treatment: Value Reference Range r esults neg * Yandy Carson 05/05/2024 2:2 9:37 PM > reviewed w/ pt in Rylie Ludwig 05/05/2024 11:03:42 PM > ?LAB: CBC Fingerstick [...] 0:00 PM > reviewed w/ pt in Rylie Ludwig 05/05/2024 11:03:34 PM > Notes: fluids, rest, supportive measures for fever/symptom relief, patient has cough medication at home?? * Procedure Codes: 9 4760 [place], [address] CAPILLARY BLOOD DRAW, 51940 CBC WITH AUTO DIFF, 19599 Flu Test- Nasal Swab, Modifiers: QW , 40856 COVID TEST IN HOUSE, Modifiers: QW * Follow Up: p rn * Billing Information: * Visit Code: 17672 Office Visit, Est Pt., Level 3. * Procedure Codes: [address] [place]. [address] CAPILLARY BLOOD DRAW. 10471 CBC WITH AUTO DIFF. 61342 Flu Test- Nasal Swab. Modifiers: QW 57568 COVID TEST IN HOUSE. Modifiers: QW * Electronic signature of GOKUL Combs on 11/03/2024 at 07:58 AM EDT Sign off status: Pending * Provider: GOKUL Horowitz Date: 1 07/06/2023 Generated for Hoda norman/Lisset/eTransmitting on: 0 11/03/2024 07:58 AM EDT History and Physical Notes * [...]
--- OUTSIDE RECORDS SUMMARY | 2024-08-02 07:30 | XMS_ITS ---
Author Organization [facility] Address [address] [facility] [address] [facility] [address] [place] [id number] Care Team Providers Care Consulting Senior Practice Director Name Role Phone Berny Reynoso Primary Care Provider Cheryle Brownlee Unavailable [phone] Allergies No Known Allergies REASON FOR VISIT Discuss Weight Loss Options Medications Medication SIG (Take, Route, Frequency, Duration) Notes Start Date End Date Status Wegovy 0.25 MG/0.5ML 0.5 ml Subcutaneous weekly for 30 day(s) 08/02/2024 Active Contrave 8-90 MG take 1 tab qd x 1 we ek; then 1 tab bid x 1 week ;then 2 tabs qam and 1 in pm x 1 week Orally Once a day for 30 day(s) 08/02/2024 Active Sertraline HCl 25 MG Take 1 tablet by mo uth once daily Orally Once a day for 30 days Needs appt Active Simvastatin 40 MG TAKE 1 TABLET BY CHASITY TH AT BEDTIME for 90 Active Vital Signs Blood pressure systolic 128 mm Hg 08/03/19 25 Blood pressure diastolic 70 mm Hg 025 Heart Rate 84 /min 08/02/2024 Height 68 in 08/02/2024 Weight 193.2 lbs 08/02/2024 BMI 29.37 kg/m2 08/02/2024 Encounters Encounter Location Date Provider Diagnosis [facility] [facility] [facility] [address] [facility] [address] [place] [id number] 08/02/2024 Cheryle Brownlee Weight gain R63.5 an [...] Notes Wegovy 0.25 MG/0.5ML 0.5 ml Subcutaneous weekly for 30 day(s) 08/02/2024 Contrave 8-90 MG take 1 tab qd x 1 we ek; then 1 tab bid x 1 week ;then 2 tabs qam and 1 in pm x 1 week Orally Once a day for 30 day(s) 08/02/2024 Treatment Notes Assessment Notes Weight gain will try Contrave wh ile awaiting approval of Wegovy; discussed; healthy foods, MVI, portion sizes and exercise Weight loss counseling, encounter for di scussed plan for weight loss Next Appt Details Follow Up: 4 weeks after sta rting med, Reason: Progress Notes * IRENEJESSICADOB:1960 (63 yo F)Acc No.[id number]:08/02/2024 Progress Notes Patient: JESSICA RAMAN Provider: CRISTA Johnson :1960 A ge:63 Y S ex:Female Date:08/02/2024 Address:[address], [place], [place] Pcp:Berny Reynoso Subjective: * Chief Complaints: * [...] General Appearance: NAD, appears healthy, alert, pleasant. Heart: RRR. Lungs: CTAB A&P. Neurologic Exam: alert and oriented. Extremities: no leg edema. Assessment: * Assessment: 1. [...] Up: 4 weeks after starting med * Billing Information: * Visit Code: 11991 Office Visit, Est Pt., Level 4. * Procedure Codes: 3074F SYST BP LT 130 MM HG. 3078F DIAST BP < 80 MM HG. * Electronic signature of Kiki Brownlee APRN on 11/03/2024 at 07:58 AM EDT Sign off status: Pending * Provider: CRISTA Johnson Date: 0 08/02/2024 Generated for Hoda norman/Lisset/Constanza on: 0 11/03/2024 07:58 AM EDT History [...]
--- OUTSIDE RECORDS SUMMARY | 2024-11-03 07:58 | XMS_ITS | Patient Health Record ---
Author Organization [facility] Address [address] [facility] [address] [phone] Care Team Providers Care Sugar House Supervisor Name Role Phone Berny Reynoso Primary Care Provider Cheryle Brownlee Unavailable [phone] Rylie Mclean Unavailable [phone] Allergies No Known Allergies Results Component Value Reference Range Notes H-TSH [...] Level > 8% Poorly Controlled Diabetic Level Influenza Screen (in house) Reviewed date:05/05/2024 11:03:45 [...] Interpretation:Negative Performing Lab: Notes/Report: Negative Result: neg Medications Medication SIG (Take, Route, Fr equency, Duration) Notes Start Date End Date Status Sertraline HCl 25 MG TAKE 1 TABLET BY MO [facility] ONCE DAILY . APPOINTMENT REQUIRED FOR FUTURE REFILLS for 30 Active Simvastatin 40 MG TAKE 1 TABLET BY [facility] AT BEDTIME for 90 Active Wegovy 0.25 MG/0.5ML 0.5 ml Subcutaneous weekly for 30 day(s) 08/02/2024 Active Contrave 8-90 MG take 1 tab qd x 1 we ek; then 1 tab bid x 1 week ;then 2 tabs qam and 1 in pm x 1 week Orally Once a day for 30 day(s) 08/02/2024 Active Immunizations Vaccine Route Administration Date Status Comme nts xFlu shot-36 months and older IM Intramuscular 04/30/2005 Administered xFlu shot-36 months and older Unknown 03/22/2016 Administered xFlu shot- 6months-36 months of gef-SKNT-DUZJ-trivalent Unknown 03/22/2016 Administered Shingrix IM Intramuscular 05/02/2021 Administered Shingrix IM Intramuscular 01/30/2022 Administered Hepatitis A (adult) IM Intramuscular 02/25/2019 Administer ed Fluzone Quad (6months&older) IM Intramuscular 02/25/2018 Administered Fluzone PF Quad (6-35 months) Unknown 02/25/2017 Administered Fluzone PF Quad (6-35 months) Unknown 04/14/2021 Administered Fluzone Intradermal Quad private(18-64yrs) IM Intramuscular 01/30/2022 Administered Fluzone Intradermal Quad private(18-64yrs) IM Intramuscular 02/25/2023 Administered COVID 19 Moderna Unknown 04/14/2021 Administered COVID 19 Shavon Unknown 08/02/2020 Administered Problems Problem Type SNOMED Code ICD Code Onset Dates Problem Status W/U Status Risk Notes Problem Hyperlipidemia (00804771) Hyperlipidemia (272.4) Active confirmed Problem Insomnia (403279724) Insomnia (G47.00) Active confirmed Problem Hyperlipidemia (73471916) Hyperlipidemia (E78.5) Active confirmed Problem Paresthesia (76018236) Paresthesia (R20.2) Active confirmed Problem Flank pain (983448442) Flank pain (R10.9) Active confirmed Problem Polyarthritis (546996794) Polyarthritis (M13.0) Active confirmed Problem 862749228 Pure hypercholesterolemia (E78.00) Active confirmed Problem 32582840 Urge incontinenc e of urine (N39.41) Active confirmed Problem 841322605 Gastroesophageal reflux disease, unspecified whether esophagitis present (K21.9) Active confirmed Vital Signs Heart Rate 84 /min 08/02/2024 Blood pressure diastolic 70 mm Hg 08/02/2024 Height 68 in 08/02/2024 Blood pressure systolic 128 mm Hg 08/02/2024 Weight 193.2 lbs 08/02/2024 BMI 29.37 kg/m2 08/02/2024 Encounters Encounter Location Date Provider Diagnosis [facility] [address] [facility] [address] [place] [id number] 01/06/2024 Cheryle Brownlee Weight loss R63.4 ; Tick bite W57.XXXA and Hyperlipidemia E78.5 [facility] [address] [facility] [address] [place], [place] [id number] 01/08/2024 Cheryle Brownlee Hyperlipidemia E78.5 and Weight loss R63.4 [facility] [address] [facility] [address] [place], [place] [id number] 05/05/2024 Rylie Mclean Acute URI J06.9 [facility] [address] [place], [place] [id number] 08/02/2024 Cheryle Brownlee Weight gain R63.5 an d Weight loss counseling, encounter for Z71.3 [facility] [address] [place], [place] [id number] 01/07/2024 Cheryle Brownlee [facility] [address] [place], [place] [id number] 01/12/2024 Berny [employer] [facility] [address] [place], [place] [id number] 01/13/2024 Berny [employer] [facility] [address] [place], [place] [id number] 08/03/2024 Cheryle Brownlee Assessments Encounter Date Diagnosis (ICD Code) Assessment Notes Treatment Notes Treatment Clinical Notes Section Notes 05/05/2024 Acute URI (ICD-10 - J06.9) fluids, rest, supportive measures for fever/symptom relief, patient has cough medication at home 01/06/2024 Weight loss (ICD-10 - R63.4) discussed healthy eating with food choices and portion sizes; also discussed ongoing exercise 01/06/2024 Tick bite (ICD-10 - W57.XXXA) 08/02/2024 Weight gain (ICD-10 - R63.5) will try Contrave while awaiting approval of Wegovy; discussed; healthy foods, MVI, portion sizes and exercise 08/02/2024 Weight loss counseling, encounter for (ICD-10 - Z71.3) discussed plan for weight loss 01/06/2024 Hyperlipidemia (ICD-10 - E78.5) 01/08/2024 Hyperlipidemia (ICD-10 - E78.5) 01/08/2024 Weight loss (ICD-10 - R63.4) 01/06/2024 Other to RTC fasting for CMP, A1c TSH, and Lipids Plan Of Treatment No Information Insurance Providers Payer Name Payer Address Payer Phone Subscriber Number Group Number Insured Name Patient Relationship to Insured Coverage Start Date Coverage End Date JUDI LAZO [employer] [address] [place] [address] [id number] JESSICA BONILLA Self - patient is the insured Medications Administered Medication Instructions Date of Administration Dosage Notes B-12 02/16/2010 1 mL Depo- Medrol 40 mg/ml 02/01/2011 1 mL Dexamethasone 06/09/2006 1 mL Dexamethasone 04/11/2007 1 mL Dexamethasone 02/15/2009 1 mL Dexamethasone 05/22/2010 1 mL Dexamethasone 04/25/2014 1 mL Dexamethasone 05/17/2014 1 mL Dexamethasone 10/10/2018 1 mL Medical (General) History Medical History History ICD Code hyperlipidemia Surgical History Surgery Date(Month/Year) hysterectomy abdominal Hospitalization History Reason Date(Month/Year) [place] chest pains 06/06/13
--- OUTSIDE RECORDS SUMMARY | 2024-11-03 07:59 | XMS_ITS | Clinical Summary ---
Author Organization [facility] Address [address] [place] [address] Phone Care Team Providers Care Building Maintenance Worker Name Role Phone Sanjiv Harris MD Primary Care Provider [phone] Allergies No known active allergies Medications simvastatin (ZOCOR) 40 mg Oral TabletIndicatio ns:Hyperlipidem ia with target LDL less than 100 Take 1 Tab by mouth nightly. 30 Tab 1 8 Active metroNIDAZOLE (METROCREAM) 0.75 % Top CreamIndication s:Rosacea Apply topically to face BID. 45 g 4 4 Active Immunizations Immunization Administration Dates Next Due Influenza Vaccine, Unspecified Formulation 02/25 Surgical History Surgery Date Site/Laterality Comments HYSTERECTOMY Family History Medical History Relation Name Comments Diabetes Father Heart Disease Father High Blood Pressure Father Stroke Mother Relation Name Status Comments Father Alive Mother Alive Social History Tobacco Use Types Packs/Day Years Used Date Smoking Tobacco: Never Smokeless Tobacco: Never Tobacco Cessation:Counseling Given: Not Answered Alcohol Use Standard Drinks/Week Comments No 0 (1 standard drink = 0.6 oz pur e alcohol) Comments No Sex and Gender Information Value Date Recorded Sex Assigned at Not on file Legal Sex Female 8:59 AM EDT Gender Identity Not on file Sexual Orientation Not on file Obstetrics History Last Filed Vital Signs Vital Sign Reading Time Taken Comments Blood Pressure 128/70 12/25/2016 8:19 AM EDT Pulse 77 12/25/2016 8:19 AM EDT Temperature 36.1 C (96.9 F) 12/25/2016 8:19 AM EDT Respiratory Rate - - Oxygen Saturation 96% 12/25/2016 8:19 AM EDT Inhaled Oxygen Concentration - - Weight 90.8 kg (200 lb 3.2 oz) 12/25/2016 8:19 A M EDT Height 170.2 cm (5' 7 ) 12/25/2016 8:19 AM EDT Body Mass Index 31.36 12/25/2016 8:19 AM EDT Plan of Treatment Health Maintenance Due Date Last Done Comments DTaP/TDaP/Td (1 - Tdap) 12/01/1979 Cervical Cancer Screening 1981 Pap Smear 1981 HPV/Pap Cotest 1990 Cologuard 2005 Colon Cancer Screening 2005 Colonoscopy 2005 FIT 2005 Sigmoidoscopy 2005 Virtual Colonography 2005 Pneumococcal Vaccine 50+ (1 of 1 - PCV) 2010 Zoster (1 of 2) 2010 Annual Wellness Exam 12/25/2017 12/25/2016 COVID-19 Vaccine ( season) 2024 05/02/2023, 04/14/2021 Breast Cancer Screening 10/24/2024 10/24/2022, 08/02 Influenza Vaccine (Season Ended) 2025 04/14/2021, 02/22/2020, 02/25/2017, Additional history exists Hepatitis C Screening Completed 12/25/2016 Hepatitis B Vaccine Aged Out No longe r eligible based on patient's age to complete this topic Meningococcal B Vaccine Aged Out No l onger eligible based on patient's age to complete this topic Goals Goal Patient Goal Type Associated Problems Recent Progress Patient-Stated? Author Maintain a healthy diet, exercise regularly and maintain an ideal body weight General No Yulissa Reyes, YESI Procedures Procedure Name Priority Date/Time Associated Diagnosis Comments MM MAMMO DIGITAL DAMIEN SCREEN BILAT Routine 10/24/2022 7:32 AM EDT Encounter for screening mammogram for malignant neoplasm of breast HCV ANTIBODY SCREEN W/ REFLEX Routine 12/25/2016 9:24 AM EDT Need for hepatitis C screening test from Last 3 Months or Most Recently Relevant to Health Maintenance Results * MM MAMMO DIGITAL DAMIEN SCREEN BILAT (10/24/2022 7:32 AM EDT) Anatomical Region Laterality Modality Breast Bilateral Mammography 10/24/2022 8:45 AM EDT Impressions 10/24/2022 8:45 AM EDT Negative ([id number]-[id number]-5) ~ RECOMMENDATION: Routine screening mammogram in 1 year. ~ DISCLAIMER * Any patient with a palpable abnormality, unexplained by breast imaging, should be managed on clinical basis by the attending physician. * Breast imaging has a false negative rate of 15%. * The patient was notified by mail of the results of this examination. *The patient's information was entered into a reminder system with a target due date for the next mammogram, in accordance with the [employer] and the Society of Breast Imaging recommendations. Narrative 10/24/2022 8:45 AM EDT Procedure:MM MAMMO DIGITAL DAMIEN SCREEN BILAT ~ Reason for exam: screening, asymptomatic. Z12.31-Encounter for screening mammogram for malignant neoplasm of skgifl-JAD-44-CM ~ MM MAMMO DIGITAL DAMIEN SCREEN BILAT Bilateral CC and MLO view(s) were taken. The breast tissue is heterogeneously dense. This may lower the sensitivity of mammography. Prior study comparison: Compared with prior studies the most recent being 08/02/16 No mammographic evidence of malignancy. ~ Procedure Note Derek Stubbs III, MD - 10/24/2022 Procedure:MM MAMMO DIGITAL DAMIEN SCREEN BILAT ~ Reason for exam: screening, asymptomatic. Z12.31-Encounter for screening mammogram for malignant neoplasm of lsiibp-IJS-68-CM ~ MM MAMMO DIGITAL DAMIEN SCREEN BILAT Bilateral CC and MLO view(s) were taken. The breast tissue is heterogeneously dense. This may lower thesensitivity of mammography. Prior study comparison: Compared with prior studies the most recentbeing 08/02/16 No mammographic evidence of malignancy. ~ IMPRESSION: Negative (ZBI-Rpxetxpo-1) ~ RECOMMENDATION: Routine screening mammogram in 1 year. ~ DISCLAIMER * Any patient with a palpable abnormality, unexplained by breast imaging, should be managed on clinical basis by the attending physician. * Breast imaging has a false negative rate of 15%. * The patient was notified by mail of the results of this examination. *The patient's information was entered into a reminder system with atarget due date for the next mammogram, in accordance with the [employer] and the Society of Breast Imaging recommendations. us Godfrey Duran MD IMG MAMMOGRAPHY ORDERABLES Fin al Result * HEPATITIS C ANTIBODY - SCREENING (12/25/2016 9:24 AM EDT) Hep C Ab Negative Negative [facility] Blood specimen (specimen) UPPER LIMB STRUCTURE / Unknown 12/25/2016 9:24 AM EDT 12/25/2016 4:20 PM EDT us Josie Rust MD HEMATOLOGY ORDERABLES Sayra l Result Performing Organization Address City/State/[facility] Co de Phone Number [facility] [address] [place] [address] from Last 3 Months or Most Recently Relevant to Health Maintenance [place] [address] [place] [address] Care Teams Building Maintenance Worker Relationship Specialty Start Date End Date Sanjiv Harris MD [address] [facility] [address] [place] [address] PCP - General Family Medicine 12/05/17
--- NOTE | 2024-11-03 08:00 | MM_ITS ---
PROCEDURE INFORMATION: Exam: MG Bilateral Screening 3D Mammography Exam date and time: 11/03/2024 8:00 AM Age: 63 years old Clinical indication: Screening examination. TECHNIQUE: Imaging protocol: Bilateral Screening tomosynthesis and 2D mammography including computer-aided detection (CAD) when performed. COMPARISON: 1. MG MM DIG SCREENING MAMM BI W/CAD 11/03/2023 9:50 AM 2. MG MM DIG SCREENING MAMM BI W/CAD 09/07/2021 10:21 AM FINDINGS: MAMMOGRAPHY: Breast composition: There are scattered areas of fibroglandular density. Mass: Indistinct 0.7 cm mass in the left upper outer quadrant at the posterior depth. Architectural distortion: None. Calcifications: No suspicious calcifications. Asymmetric density: None. Skin thickening: None. Axillary adenopathy: None. IMPRESSION: Patient to be recalled for spot compression views of the left breast in the CC and MLO projections, a full 90 degree lateral view, and left breast ultrasound for further evaluation of a left breast mass. ASSESSMENT: BI-RADS Category 0: Incomplete- Need Additional Imaging Evaluation.
== END 2024-11-03 23:59 | disposition home or self-care (01) ==
LOC: RAD 07:56
PROVIDERS: PCP Family Medicine; Visit Provider Nurse Practitioner Obstetrics & Gynecology
DX: Z12.31 Encounter for screening mammogram for malignant neoplasm of breast (principal); R92.323 Mammographic fibroglandular density, bilateral breasts; N63.21 Unspecified lump in the left breast, upper outer quadrant
CPT/HCPCS: 77063; 77067

== ENCOUNTER 2024-11-17 13:35 | Outpatient (CLI) | payer BC, SELFPAY ==
--- OUTSIDE RECORDS SUMMARY | 2024-01-08 04:15 | XMS_ITS ---
Author Organization [facility] Address [address] [facility] [address] [id number] Care Team Providers Care Dyed Yarn Operator Name Role Phone Berny Reynoso Primary Care Provider Cheryle Brownlee Unavailable [phone] Results Component Value Reference Range Notes H-TSH Reviewed date:01/12/2024 09:03:04 AM Interpretation:Normal 2.39 Performing Lab: Notes/Report: TSH 2.39 0.465-4.68 uIU/mL H-Lipid Panel Reviewed date:01/12/2024 09:01:54 AM Interpretation:TG 127; LDL 73.07; HDL 58 Performing Lab: Notes/Report: Patient Fasting? Y TRIG 127 30-150 mg/dl CHOL 175 140-200 mg/dl DLDL 73.07 100-129 mg/dL VLDL 25 0-40 mg/dL HDL 58 40-60 mg/dl CHLHDL 3.0 1-3.5 H-CMP Reviewed date:03/08/2024 12:34:59 PM Interpretation: Performing Lab: Notes/Report: H-Glycohemoglobin A1C Reviewed date:01/12/2024 09:20:13 AM Interpretation:5.7 Performing Lab: Notes/Report: HGBA1C 5.7 4.0-6.0 % < 6% Non-Diabetic Level < 7% Controlled Diabetic Level > 8% Poorly Controlled Diabetic Level REASON FOR VISIT blood work Medications Medication SIG (Take, Route, Frequency, Duration) Notes Start Date End Date Status Omeprazole 40 MG 1 capsule Orally at bedtime Active Wegovy 1 MG/0.5ML 0.5 ml Subcutaneous weekly for 30 day(s) 01/06/2024 Active Simvastatin 40 MG TAKE 1 TABLET BY CHASITY TH ONCE DAILY AT BEDTIME for 90 days Active Sertraline HCl 25 MG Take 1 tablet by mo uth once daily for 90 Active Zepbound 2.5 MG/0.5ML 0.5 mL Subcutaneou s weekly for 30 day(s) 01/07/2024 Active Doxycycline Monohydrate 100 MG 1 capsule Orally Twice a day for 14 day(s) 01/06/2024 Active Diflucan 150 MG 1 tablet Orally qd f or 1 day 01/06/2024 Active Encounters Encounter Location Date Provider Diagnosis [facility] [address] [facility] [address], [place] [id number] 01/08/2024 Cheryle Brownlee Hyperlipidemia E78.5 and Weight loss R63.4 Assessments Encounter Date Diagnosis (ICD Code) Assessment Notes Treatment Notes Treatment Clinical Notes Section Notes 01/08/2024 Hyperlipidemia (ICD-10 - E78.5) 01/08/2024 Weight loss (ICD-10 - R63.4) Plan Of Treatment No Information Progress Notes * IRENEJESSICADOB:1960 (63 yo F)Acc No.[id number]:01/08/2024 Patient: JESSICA RAMAN Provider: CRISTA Johnson :1960 A ge:63 Y S ex:Female Date:01/08/2024 Address:[address] [place] [address], [place], [id number] Pcp:Berny Reynoso Subjective: * Chief Complaints: * 1 . Blood work. * Medical History: * Medications: T aking Omeprazole 40 MG Capsule Delayed Release 1 capsule Orally at bedtime , Taking Simvastatin 40 MG Tablet TAKE 1 TABLET BY MOUTH ONCE DAILY AT BEDTIME , Taking Sertraline HCl 25 MG Tablet Take 1 tablet by mouth once daily , Taking Wegovy 1 MG/0.5ML Solution Auto-injector 0.5 ml Subcutaneous weekly , Taking Doxycycline Monohydrate 100 MG Capsule 1 capsule Orally Twice a day , Taking Diflucan 150 MG Tablet 1 tablet Orally qd , Taking Zepbound 2.5 MG/0.5ML Solution Auto-injector 0.5 mL Subcutaneous weekly , Medication List reviewed and reconciled with the patient Objective: * Vitals: Assessment: * Assessment: 1. H yperlipidemia - E78.5 2 . W eight loss - R63.4 Plan: * Treatment: Value Reference Range T RIG 127 30-150 - mg/dl * C HOL 175 140-200 - mg/dl * D LDL 73.07 L 100-129 - mg/dL * V LDL 25 0-40 - mg/dL * H DL 58 40-60 - mg/dl * C HLHDL 3.0 1-3.5 - * Cheryle Brownlee 01/12/2024 9:01:49 AM > , results reviewed with patient ?LAB: H-CMP (Collection Date & Time - 03/08/2024)* Cheryle Brownlee 01/12/2024 9:29:15 AM >Hansa Craig 02/11/2024 11:33:58 AM > was not performed 2.?Weight loss?LAB: H-TSH (Collection Date & Time - 01/08/2024 08:51 AM)?Normal 2.39* Value Reference Range T SH 2.39 0.465-4.68 - uIU/mL * Cheryle Brownlee 01/12/2024 9:02:56 AM > , results reviewed with patient ?LAB: H-Glycohemoglobin A1C (Collection Date & Time - 01/08/2024 08:51 AM)? 5.7* Value Reference Range H GBA1C 5.7 4.0-6.0 - % * Cheryle Brownlee 01/12/2024 9:20:05 AM > , results reviewed with patient * Billing Information: * Visit Code: * Procedure Codes: * Electronic signature of Kiki Brownlee APRN on 11/17/2024 at 01:41 PM EDT Sign off status: Pending * Provider: CRISTA Johnson Date: 0 01/08/2024 Generated for Hoda norman/Lisset/eTransmitting on: 0 11/17/2024 01:41 PM EDT
--- OUTSIDE RECORDS SUMMARY | 2024-05-05 09:45 | XMS_ITS ---
Author Organization [facility] Address [address] [facility] [address] [phone] Care Team Providers Care Diesel Powerplant Mechanic Name Role Phone Berny Reynoso Primary Care Provider Rylie Mclean Unavailable [phone] Allergies No Known Allergies Results Component Value [...] 05/05/2024 Encounters Encounter Location Date Provider Diagnosis [facility] [address] [place], [place] [phone] 05/05/2024 Rylie Mclean Acute URI J06.9 Assessments [...] Notes * JESSICA BONILLADOB:1960 (63 yo F)Acc No.[id number]:05/05/2024 Progress Notes Patient: JESSICA RAMAN Provider: GOKUL Horowitz :1960 A ge:63 Y S ex:Female Date:05/05/2024 Address:[address] [place] [address], [place], [place] Pcp:Berny Reynoso Subjective: * Chief Complaints: * [...] * Procedure Codes: 9 4760 [place], [address] CAPILLARY BLOOD DRAW, 51574 CBC WITH AUTO DIFF, 26845 Flu Test- Nasal Swab, Modifiers: QW , 25929 COVID TEST IN HOUSE, Modifiers: QW * Follow Up: p rn * Billing Information: * Visit Code: 50877 Office Visit, Est Pt., Level 3. * Procedure Codes: [address] [place]. [address] CAPILLARY BLOOD DRAW. 74030 CBC WITH AUTO DIFF. 25659 Flu Test- Nasal Swab. Modifiers: QW 04861 COVID TEST IN HOUSE. Modifiers: QW * Electronic signature of GOKUL Combs on 11/17/2024 at 01:40 PM EDT Sign off status: Pending * Provider: GOKUL Horowitz Date: 1 07/06/2023 Generated for Hoda norman/Lisset/eTransmitting on: 0 11/17/2024 01:40 PM EDT History and Physical Notes * [...]
--- OUTSIDE RECORDS SUMMARY | 2024-08-02 07:30 | XMS_ITS ---
Author Organization [facility] Address [address] [facility] [facility] [address] [facility] [address] [place] [phone] Care Team Providers Care Hand Profiler Name Role Phone Berny Reynoso Primary Care Provider Cheryle Brownlee Unavailable [phone] Allergies No Known Allergies REASON FOR VISIT [...] 08/02/2024 Encounters Encounter Location Date Provider Diagnosis [facility] [address] [facility] [facility] [address] [place] [id number] 08/02/2024 Cheryle Brownlee Weight gain R63.5 an [...] Progress Notes * IRENEJESSICADOB:1960 (63 yo F)Acc No.[id number]:08/02/2024 Progress Notes Patient: JESSICA RAMAN Provider: CRISTA Johnson :1960 A ge:63 Y S ex:Female Date:08/02/2024 Address:[address], [place], [id number] Pcp:Berny Reynoso Subjective: * Chief Complaints: * [...] med * Billing Information: * Visit Code: 27822 Office Visit, Est Pt., Level 4. * Procedure Codes: 3074F SYST BP LT 130 MM HG. 3078F DIAST BP < 80 MM HG. * Electronic signature of Kiki Brownlee APRN on 11/17/2024 at 01:38 PM EDT Sign off status: Pending * Provider: CRISTA Johnson Date: 0 08/02/2024 Generated for Hoda norman/Lisset/Constanza on: 0 11/17/2024 01:38 PM EDT History and Physical Notes * [...]
--- OUTSIDE RECORDS SUMMARY | 2024-11-17 13:39 | XMS_ITS | Patient Health Record ---
Author Organization [facility] Address [address] [facility] [address] [id number] Care Team Providers Care Clamshell Engineer Name Role Phone Berny Reynoso Primary Care Provider [phone] Cheryle Brownlee Unavailable [phone] Rylie Mclean Unavailable [phone] Allergies No Known Allergies Results Component Value [...] 25 MG TAKE 1 TABLET BY MO [facility] ONCE DAILY . APPOINTMENT REQUIRED FOR [...] 03/22/2016 Administered xFlu shot- 6months-36 months of vva-RLIM-FTTN-trivalent Unknown 03/22/2016 Administered Shingrix IM Intramuscular 05/02/2021 [...] Status W/U Status Risk Notes Problem Hyperlipidemia (61165149) Hyperlipidemia (272.4) Active confirmed Problem Insomnia (124220200) Insomnia (G47.00) Active confirmed Problem Hyperlipidemia (99280154) Hyperlipidemia (E78.5) Active confirmed Problem Paresthesia (65052720) Paresthesia (R20.2) Active confirmed Problem Flank pain (161507990) Flank pain (R10.9) Active confirmed Problem Polyarthritis (903227848) Polyarthritis (M13.0) Active confirmed Problem 861855790 Pure hypercholesterolemia (E78.00) Active confirmed Problem 63987165 Urge incontinenc e of urine (N39.41) Active confirmed Problem 821119894 Gastroesophageal reflux disease, unspecified whether esophagitis present (K21.9) Active confirmed Vital Signs Heart Rate 84 /min 08/02/2024 Blood pressure diastolic 70 mm Hg 08/02/2024 Height 68 in 08/02/2024 Blood pressure systolic 128 mm Hg 08/02/2024 Weight 193.2 lbs 08/02/2024 BMI 29.37 kg/m2 08/02/2024 Encounters Encounter Location Date Provider Diagnosis [facility] [address] [facility] [address] [place] [id number] 01/06/2024 Cheryle Brownlee Weight loss R63.4 ; Tick bite W57.XXXA and Hyperlipidemia E78.5 [facility] [address] [facility] [address] [place], [place] [id number] 01/08/2024 Cheryle Brownlee Hyperlipidemia E78.5 and Weight loss R63.4 [facility] [address] [facility] [address] [place], [place] [id number] 05/05/2024 Rylie Mclean Acute URI J06.9 [facility] [address] [place], [place] [id number] 08/02/2024 Cheryle Brownlee Weight gain R63.5 an d Weight loss counseling, encounter for Z71.3 [facility] [address] [place], [place] [id number] 01/07/2024 Cheryle Brownlee [facility] [address] [place], [place] [id number] 01/12/2024 Berny [place] [facility] [address] [place], [place] [id number] 01/13/2024 Berny [place] [facility] [address] [place], [place] [id number] 08/03/2024 Cheryle Brownlee Assessments Encounter Date Diagnosis (ICD Code) Assessment Notes Treatment Notes Treatment Clinical Notes Section Notes 01/06/2024 Weight loss (ICD-10 - R63.4) discussed healthy eating with food choices and portion sizes; also discussed ongoing exercise 01/06/2024 Tick bite (ICD-10 - W57.XXXA) 05/05/2024 Acute URI (ICD-10 - J06.9) fluids, rest, supportive measures for fever/symptom relief, patient has cough medication at home 08/02/2024 Weight gain (ICD-10 - R63.5) will try Contrave while awaiting approval of Wegovy; discussed; healthy foods, MVI, portion sizes and exercise 08/02/2024 Weight loss counseling, encounter for (ICD-10 - Z71.3) discussed plan for weight loss 01/08/2024 Hyperlipidemia (ICD-10 - E78.5) 01/06/2024 Hyperlipidemia (ICD-10 - E78.5) 01/08/2024 Weight loss (ICD-10 - R63.4) 01/06/2024 Other to RTC fasting for CMP, A1c TSH, and Lipids Plan Of Treatment No Information Insurance Providers Payer Name Payer Address Payer Phone Subscriber Number Group Number Insured Name Patient Relationship to Insured Coverage Start Date Coverage End Date JUDI [employer] [address] [place] [address] [id number] JESSICA BONILLA Self - patient is the [...] Date(Month/Year) hysterectomy abdominal Hospitalization History Reason Date(Month/Year) [facility] chest pains 06/06/13
--- OUTSIDE RECORDS SUMMARY | 2024-11-17 13:41 | XMS_ITS | Clinical Summary ---
Author Organization [facility] Address [address] [place] [address] Phone Care Team Providers Care Public Information Officer Name Role Phone Sanjiv Harris MD Primary Care Provider [phone] Allergies No known active allergies Medications simvastatin [...] EDT Impressions 10/24/2022 8:45 AM EDT Negative (UYN-Ahaabitx-8) ~ RECOMMENDATION: Routine screening mammogram in 1 [...] the next mammogram, in accordance with the [employer] and the Society of Breast Imaging recommendations. Narrative 10/24/2022 8:45 AM EDT Procedure:MM MAMMO DIGITAL DAMIEN SCREEN BILAT ~ Reason for exam: screening, asymptomatic. Z12.31-Encounter for screening mammogram for malignant neoplasm of pkugts-AWL-19-CM ~ MM MAMMO DIGITAL DAMIEN SCREEN BILAT [...] for screening mammogram for malignant neoplasm of nlfuxk-ETF-71-CM ~ MM MAMMO DIGITAL DAMIEN SCREEN BILAT Bilateral CC and MLO view(s) were taken. The breast tissue is heterogeneously dense. This may lower thesensitivity of mammography. Prior study comparison: Compared with prior studies the most recentbeing 08/02/16 No mammographic evidence of malignancy. ~ IMPRESSION: Negative (ZAD-Watctwiz-9) ~ RECOMMENDATION: Routine screening mammogram in 1 [...] the next mammogram, in accordance with the [place] and the Society of Breast Imaging recommendations. us Godfrey Duran MD IMG MAMMOGRAPHY ORDERABLES Fin al Result * HEPATITIS C ANTIBODY - SCREENING (12/25/2016 9:24 AM EDT) Hep C Ab Negative Negative [facility] Blood specimen (specimen) UPPER LIMB STRUCTURE / Unknown 12/25/2016 9:24 AM EDT 12/25/2016 4:20 PM EDT us Josie Rust MD HEMATOLOGY ORDERABLES Sayra l Result Performing Organization Address City/State/[place] Co de Phone Number [facility] [address] [place] [address] from Last 3 Months or Most Recently Relevant to Health Maintenance Insurance [place] [address] Care Teams Public Information Officer Relationship Specialty Start Date End Date Sanjiv Harris MD [address] [facility] [address] [place] [address] PCP - General Family Medicine 12/05/17
--- NOTE | 2024-11-17 14:00 | MM_ITS ---
PROCEDURE INFORMATION: Exam: US Left Breast, Complete MG Left Diagnostic Breast Tomosynthesis MG Left Diagnostic Mammography Exam date and time: 11/17/2024 2:00 PM Age: 63 years old Clinical indication: Callback for a left breast finding on screening mammogram. TECHNIQUE: Imaging protocol: Complete ultrasound of all four quadrants of the left breast and the retroareolar regions, including ultrasound of the axilla when performed. Left Diagnostic tomosynthesis and 2D mammography including computer-aided detection (CAD) when performed. Unilateral or bilateral exam. Left Diagnostic mammography including computer-aided detection (CAD) when performed. Unilateral exam. COMPARISON: MG MM DIG MAMM DX UNILAT LT CAD 11/17/2024 1:49 PM FINDINGS: MAMMOGRAPHY: Breast composition: There are scattered areas of fibroglandular density. Breast mammogram findings: The questionable mass in the left upper outer quadrant partially dissipates on the additional spot compression images. No discrete mass is seen. There is mild glandular appearing asymmetry in the lateral aspect of the left breast, posterior depth. ULTRASOUND: Breast ultrasound findings: Ultrasound of the entire left breast is performed. In the upper outer quadrant, 2 o'clock axis, 8 cm from the nipple, there is an ovoid hypoechoic glandular structure measuring 0.7 x 0.2 x 0.6 cm, which is believed to correlate to the mammogram finding. This is considered probably benign. No shadowing or distortion. No axillary adenopathy. IMPRESSION: Probably benign fibroglandular element in the left breast 2 o'clock axis, 8 cm from the nipple. A six-month follow-up left breast diagnostic mammogram and ultrasound are recommended for close surveillance. ASSESSMENT: BI-RADS Category 3: Probably benign.
== END 2024-11-17 23:59 | disposition home or self-care (01) ==
LOC: RAD 13:36
PROVIDERS: PCP Family Medicine; Visit Provider Nurse Practitioner Obstetrics & Gynecology
DX: N63.21 Unspecified lump in the left breast, upper outer quadrant (principal); R92.322 Mammographic fibroglandular density, left breast
CPT/HCPCS: 76641; 77061; 77065; G0279

== ENCOUNTER 2024-12-08 15:21 | Emergency (ER) | payer BC, SELFPAY ==
--- OUTSIDE RECORDS SUMMARY | 2024-05-05 09:45 | XMS_ITS ---
Author Organization [facility] Address [address] [facility] [address] [id number] Care Team Providers Care Finish Painter Name Role Phone Berny Reynoso Primary Care Provider [phone] Rylie Mclean Unavailable [phone] Allergies No Known Allergies Results Component Value Reference Range Notes Influenza Screen (in house) Reviewed date:05/05/2024 11:03:45 PM Interpretation:Negative Performing Lab: Notes/Report: Negative results neg CBC Fingerstick (in house) Reviewed date:05/07/2024 10:33:34 AM Interpretation: Performing Lab: Notes/Report: wbc 6.1 3.5 - 10 lym 34.8 15 - 50 mid 7.2 2 - 15 gran 58.0 35 - 80 rbc 4.08 3.5 - 5.5 hgb 12.2 11.5 - 16.5 hct 36.4 35 - 55 mcv 89.2 75 - 100 mch 30.0 25 - 35 mchc 33.7 31 - 38 plat 190 100 - 400 Covid test (in house) Reviewed date:05/05/2024 11:03:37 PM Interpretation:Negative Performing Lab: Notes/Report: Negative Result: neg REASON FOR VISIT congestion Medications Medication SIG (Take, Route, Frequency, Duration) Notes Start Date End Date Status Sertraline HCl 25 MG Take 1 tablet by mo uth once daily Orally Once a day; Duration: 90 days Active Simvastatin 40 MG TAKE 1 TABLET BY CHASITY TH AT BEDTIME; Duration: 90 Active Doxycycline Monohydrate 100 MG 1 capsule Orally Twice a day; Duration: 14 day(s) 01/06/2024 Not-Taking Diflucan 150 MG 1 tablet Orally qd; Duration: 1 day 01/06/2024 Not-Taking Omeprazole 40 MG 1 capsule Orally at bedtime Active Vital Signs Blood pressure systolic 128 mm Hg 05/05/20 24 Blood pressure diastolic 68 mm Hg 024 Heart Rate 88 /min 05/05/2024 Height 68 in 05/05/2024 Weight 197.8 lbs 05/05/2024 BMI 30.07 kg/m2 05/05/2024 Encounters Encounter Location Date Provider Diagnosis [facility] [address] [place], [place] [id number] 05/05/2024 Rylie Mclean Acute URI J06.9 Assessments Encounter Date Diagnosis (ICD Code) Assessment Notes Treatment Notes Treatment Clinical Notes Section Notes 05/05/2024 Acute URI (ICD-10 - J06.9) fluids, rest, supportive measures for fever/symptom relief, patient has cough medication at home Plan Of Treatment Treatment Notes Assessment Notes Acute URI fluids, rest, suppor tive measures for fever/symptom relief, patient has cough medication at home Next Appt Details Follow Up: prn, Reason: Progress Notes * JESSICA BONILLADOB:1960 (64 yo F)Acc No.[id number]:05/05/2024 Progress Notes Patient: JESSICA RAMAN Provider: GOKUL Horowitz :1960 A ge:63 Y S ex:Female Date:05/05/2024 Address:[address] [place] [address], [place], [place] Pcp:Berny Reynoso Subjective: * Chief Complaints: * 1 . Congestion. * HPI: E NT/respiratory: 63 year old female presents with c/o nasal congestion P t presents today with c/o nasal congestion or head cold. Pt sts that she is going on a trip with about 20 people and sts that she does not want to be the cause of anyone becoming sick. Pt sts that her left ear feels a little funny. Pt sts that her nasal drainage is clear in color. Pt sts that she started to feel bad Friday evening. Denies : Fever. D enies : body aches. * ROS: D ERMATOLOGY: no R sukhi. n o H wilda. G ASTROENTEROLOGY: no N ausea. n o V omiting. n o D iarrhea.? U ROLOGY: no D ifficulty urinating. n o B lood in urine. * Medical History: H yperlipidemia. * Surgical History: h ysterectomy abdominal . * Hospitalization/Major Diagno stic Procedure: H MH chest pains 06/06/13. * Family History: F ather: alive 66 yrs. M other: alive 64 yrs. P aternal Grand Father: . P aternal Grand Mother: . M aternal Grand Father: . M aternal Grand Mother: alive. 2 brother(s) . 1 son(s) . . * Social History: C URRENT TOBACCO USE S moking Status: Patient does NOT smoke. C affeine: yes, frequency:some. Exercise: yes. Home smoke detector use: yes. Marital Status: . New since last visit: none. Occupation: yes. Past smoking status: no. Occup. exposure: none. Recreational drug use: no. Alcohol: no. Sexually active: yes. Travel ouside [place]: no. * Medications: T aking Omeprazole 40 MG Capsule Delayed Release 1 capsule Orally at bedtime , Taking Simvastatin 40 MG Tablet TAKE 1 TABLET BY MOUTH AT BEDTIME , Taking Sertraline HCl 25 MG Tablet Take 1 tablet by mouth once daily Orally Once a day , Not-Taking Doxycycline Monohydrate 100 MG Capsule 1 capsule Orally Twice a day , Not-Taking Diflucan 150 MG Tablet 1 tablet Orally qd , Discontinued Wegovy 1 MG/0.5ML Solution Auto-injector 0.5 ml Subcutaneous weekly , Discontinued Zepbound 2.5 MG/0.5ML Solution Auto-injector 0.5 mL Subcutaneous weekly , Medication List reviewed and reconciled with the patient * Allergies: N .K.D.A. Objective: * Vitals: W t:197.8, Temp:98.4, BP:128/68, HR:88, O2 Sat:98% on RA, Nurse:ABDIRAHMAN, Ht: 68, BMI:30.07. * Examination: E NT/Respiratory: General Appearance: N AD. E ars: a uditory canals normal bilaterally, TM's WNL. N ose : turbinates red, congested. S inuses : non tender bilaterally. O ral cavity : erythema without exudate on pharynx, PND present. N jerel : n o cervical lymphadenopathy. H eart : R RR, normal S1 S2, no murmurs. L ungs:?clear to auscultation bilaterally. Assessment: * Assessment: 1. Kameron starks URI - J06.9 (Primary) Plan: * Treatment: Value Reference Range r esults neg * Yandy Carson 05/05/2024 2:2 9:37 PM > reviewed w/ pt in officeCrRylie chiang Arthur 05/05/2024 11:03:42 PM > ?LAB: CBC Fingerstick (in house) (Collection Date & Time - 05/05/2024)* Value Reference Range w bc 6.1 3.5 - 10 * l ym 34.8 15 - 50 * m id 7.2 2 - 15 * g ran 58.0 35 - 80 * r bc 4.08 3.5 - 5.5 * h gb 12.2 11.5 - 16.5 * h ct 36.4 35 - 55 * m cv 89.2 75 - 100 * m ch 30.0 25 - 35 * m chc 33.7 31 - 38 * p lat 190 100 - 400 * Yandy Carson 05/05/2024 2:2 5:00 PM > results reviewed w/ pt in office ?LAB: Covid test (in house) (Collection Date & Time - 05/05/2024)?Negative* Value Reference Range R esult: neg * Yandy Carson 05/05/2024 2:3 0:00 PM > reviewed w/ pt in officeRylie Mclean Arthur 05/05/2024 11:03:34 PM > Notes: fluids, rest, supportive measures for fever/symptom relief, patient has cough medication at home?? * Procedure Codes: 9 4760 [place], [address] CAPILLARY BLOOD DRAW, 93664 CBC WITH AUTO DIFF, 84468 Flu Test- Nasal Swab, Modifiers: QW , 44070 COVID TEST IN HOUSE, Modifiers: QW * Follow Up: p rn * Images: Billing Information: * Visit Code: 83403 Office Visit, Est Pt., Level 3. * Procedure Codes: [address] [place]. [address] CAPILLARY BLOOD DRAW. 98717 CBC WITH AUTO DIFF. 19313 Flu Test- Nasal Swab. Modifiers: QW 82276 COVID TEST IN HOUSE. Modifiers: QW * Electronic signature of GOKUL Combs on 12/08/2024 at 04:03 PM EDT Sign off status: Pending * Provider: GOKUL Horowitz Date: 1 07/06/2023 Generated for Printi ng/Faleightong/eTransmitting on: 0 12/08/2024 04:03 PM EDT History and Physical Notes * HPI (History of Present Illness) Category Sub-Category Detail Notes Category Not es ENT/respiratory Fever nasal congestion Pt presents today wi th c/o nasal congestion or head cold. Pt sts that she is going on a trip with about 20 people and sts that she does not want to be the cause of anyone becoming sick. Pt sts that her left ear feels a little funny. Pt sts that her nasal drainage is clear in color. Pt sts that she started to feel bad Friday evening body aches Examination Category Sub-Category Detail Notes Category Not es ENT/Respiratory Oral cavity : erythema without exudate on pharynx, PND present Sinuses : non tender bilateral ly Ears: auditory canals norm al bilaterally, TM's WNL Neck : no cervical lymphade nopathy Heart : RRR, normal S1 S2, n o murmurs Lungs: clear to auscultatio n bilaterally General Appearance: NAD Nose : turbinates red, braydon ested
--- OUTSIDE RECORDS SUMMARY | 2024-08-02 07:30 | XMS_ITS ---
Author Organization [facility] Address [address] [place] [id number] Care Team Providers Care Operating Room Coordinator Name Role Phone Berny Reynoso Primary Care Provider [phone] Cheryle Brownlee Unavailable [phone] Allergies No Known Allergies REASON FOR VISIT [...] 08/02/2024 Encounters Encounter Location Date Provider Diagnosis [facility] [address] [place] [id number] 08/02/2024 Cheryle Brownlee Weight gain R63.5 an [...] Notes * REG BONILLAB:1960 (64 yo F)Acc No.[id number]:08/02/2024 Progress Notes Patient: JESSICA RAMAN Provider: CRISTA Johnson :1960 A ge:63 Y S ex:Female Date:08/02/2024 Address:[address] [place] [address], [place], [place] Pcp:Berny Reynoso Subjective: * Chief Complaints: * [...] * Images: Billing Information: * Visit Code: 75151 Office Visit, Est Pt., Level 4. * Procedure Codes: 3074F SYST BP LT 130 MM HG. 3078F DIAST BP < 80 MM HG. * Electronic signature of Kiki Brownlee APRN on 12/08/2024 at 04:02 PM EDT Sign off status: Pending * Provider: CRISTA Johnson Date: 0 08/02/2024 Generated for Hoda norman/Lisset/Constanza on: 0 12/08/2024 04:02 PM EDT History and Physical Notes * [...]
[2024-12-08] VITALS (12 sets, daily range): BP systolic 121–165; BP diastolic 52–86; PULSE 76–91; RESP 16–18; TEMP 36.9–37.3; O2SAT 92–100; BMI 27.3
--- OUTSIDE RECORDS SUMMARY | 2024-12-08 16:03 | XMS_ITS | Clinical Summary ---
Author Organization [facility] Address [address] [place] [address] Phone Care Team Providers Care User Experience Architect Name Role Phone Sanjiv Harris MD Primary Care Provider [phone] Allergies No known active allergies Medications simvastatin [...] Cancer Screening 10/24/2024 10/24/2022, 08/02 Influenza Vaccine (#1) 2025 , 02/22/2020, 02/25/2017, Additional history exists Hepatitis C [...] EDT Impressions 10/24/2022 8:45 AM EDT Negative (QUJ-Febttzyz-1) ~ RECOMMENDATION: Routine screening mammogram in 1 [...] the next mammogram, in accordance with the [place] [employer] and the Society of Breast Imaging recommendations. Narrative 10/24/2022 8:45 AM EDT Procedure:MM MAMMO DIGITAL DAMIEN SCREEN BILAT ~ Reason for exam: screening, asymptomatic. Z12.31-Encounter for screening mammogram for malignant neoplasm of mxdrhp-DUJ-33-CM ~ MM MAMMO DIGITAL DAMIEN SCREEN BILAT [...] for screening mammogram for malignant neoplasm of afezfu-MDL-51-CM ~ MM MAMMO DIGITAL DAMIEN SCREEN BILAT Bilateral CC and MLO view(s) were taken. The breast tissue is heterogeneously dense. This may lower thesensitivity of mammography. Prior study comparison: Compared with prior studies the most recentbeing 08/02/16 No mammographic evidence of malignancy. ~ IMPRESSION: Negative (KUG-Fysnqwoz-5) ~ RECOMMENDATION: Routine screening mammogram in 1 [...] the next mammogram, in accordance with the [place] [employer] and the Society of Breast Imaging recommendations. us Godfrey Duran MD IMG MAMMOGRAPHY ORDERABLES Fin al Result * HEPATITIS C ANTIBODY - SCREENING (12/25/2016 9:24 AM EDT) Hep C Ab Negative Negative [facility] Blood specimen (specimen) UPPER LIMB STRUCTURE / Unknown 12/25/2016 9:24 AM EDT 12/25/2016 4:20 PM EDT us Josie Rust MD HEMATOLOGY ORDERABLES Sayra l Result Performing Organization Address City/State/[facility] Co de Phone Number [facility] [address] [place] [address] from Last 3 Months or Most Recently Relevant to Health Maintenance Insurance Care Teams User Experience Architect Relationship Specialty Start Date End Date Sanjiv Harris MD [facility] [address] [place] [id number] PCP - General Family Medicine 12/05/17
--- OUTSIDE RECORDS SUMMARY | 2024-12-08 16:03 | XMS_ITS | Patient Health Record ---
Author Organization [facility] Address 1210 [facility] [address] [id number] Care Team Providers Care Manager Market Research Name Role Phone Berny Reynoso Primary Care Provider Cheryle Brownlee Unavailable [phone] Rylie Mclean Unavailable [phone] Allergies No Known Allergies Results Component Value Reference Range Notes CBC Fingerstick (in house) Reviewed date:05/07/2024 10:33:34 [...] Interpretation:Negative Performing Lab: Notes/Report: Negative Result: neg Influenza Screen (in house) Reviewed date:05/05/2024 11:03:45 PM Interpretation:Negative Performing Lab: Notes/Report: Negative results neg H-TSH Reviewed date:01/12/2024 09:03:04 AM Interpretation:Normal 2.39 [...] Level > 8% Poorly Controlled Diabetic Level Medications Medication SIG (Take, Route, Fr equency, Duration) Notes Start Date End Date Status Sertraline HCl 25 MG 1 tablet Orally Onc e a day; Duration: 30 days Active Wegovy 0.25 MG/0.5ML 0.5 ml Subcutaneous weekly; Duration: 30 day(s) 08/02/2024 Active Contrave 8-90 MG take 1 tab qd x 1 we ek; then 1 tab bid x 1 week ;then 2 tabs qam and 1 in pm x 1 week Orally Once a day; Duration: 30 day(s) 08/02/2024 Active Simvastatin 40 MG 1 tablet in the even ing Orally Once a day; Duration: 30 days Ac tive Immunizations Vaccine Route Administration Date Status Comme [...] 01/30/2022 Administered xFlu shot- 6months-36 months of epi-LPHR-VEEM-trivalent Unknown 03/22/2016 Administered xFlu shot-36 months and older IM Intramuscular 04/30/2005 Administered xFlu shot-36 months and older Unknown 03/22/2016 Administered Problems Problem Type SNOMED Code ICD Code Onset Dates Problem Status W/U Status Risk Notes Problem Hyperlipidemia (60209673) Hyperlipidemia (272.4) Active confirmed Problem Insomnia (721749652) Insomnia (G47.00) Active c onfirmed Problem Hyperlipidemia (45471247) Hyperlipidemia (E78.5) Active confirmed Problem Paresthesia (86588426) Paresthesia (R20.2) Active confirmed Problem Flank pain (794527657) Flank pain (R10.9) Active confirmed Problem Polyarthritis (700511678) Polyarthritis (M13.0) Active confirmed Problem Pure hypercholesterolemia (327169076) Pure hypercholesterolemia (E78.00) Active confirmed Problem Urge incontinence of urine (63539695) Urge incontinence of urine (N39.41) Active confirmed Problem Gastroesophageal reflux disease (560081886) Gastroesophageal reflux disease, unspecified whether esophagitis present (K21.9) Active confirmed Vital Signs Heart Rate 84 /min 08/02/2024 Blood pressure diastolic 70 mm Hg 08/02/2024 Height 68 in 08/02/2024 Blood pressure systolic 128 mm Hg 08/02/2024 Weight 193.2 lbs 08/02/2024 BMI 29.37 kg/m2 08/02/2024 Encounters Encounter Location Date Provider Diagnosis [facility] [address] [facility] [address] [place], [place] [id number] 01/06/2024 Cheryle Brownlee Weight loss R63.4 ; Tick bite W57.XXXA and Hyperlipidemia E78.5 [facility] [address] [place], [place] [id number] 01/08/2024 Cheryle Brownlee Hyperlipidemia E78.5 and Weight loss R63.4 [facility] [address] [facility] [address] [place], [place] [id number] 05/05/2024 Rylie Mclean Acute URI J06.9 [facility] [address] [place], [place] [id number] 08/02/2024 Cheryle Brownlee Weight gain R63.5 an d Weight loss counseling, encounter for Z71.3 [facility] [address] [place], [place] [id number] 01/07/2024 Cheryle Brownlee [facility] [address] [place], [place] [id number] 01/12/2024 Berny Graham [facility] [address] [place], [place] [id number] 01/13/2024 Berny Graham [facility] [address] [place], [place] [id number] 08/03/2024 Cheryle Brownlee Assessments Encounter Date Diagnosis [...] JUDI LAZO [employer] [address] [place] [address] [phone] [id number] JESSICA BONILLA Self - patient is the [...] Date(Month/Year) hysterectomy abdominal Hospitalization History Reason Date(Month/Year) [facility] chest pains 06/06/13
--- NOTE | 2024-12-08 16:05 | ED_ITS ---
<Statement entered by Sharona Garza DO - 12/08/24 20:35> I was consulted by the STEPHANIE, and we discussed the complexity of the problems being addressed. I approved the treatment and management plan for this patient's care in the emergency department, thus performing a substantive portion of the medical decision making. Sharona Garza DO Discharge Plan Disposition Patient Disposition: Home, Self-Care Condition: Good Prescriptions Prescriptions: New sulfamethoxazole-trimethoprim [Bactrim DS] 800-160 mg tablet 1 tab PO BID 5 Days Qty: 10 0RF No Action simvastatin 40 mg tablet 40 mg PO DAILY 30 Days Referrals Follow up/Referrals: Scottie Vila II, MD [Staff Physician, Gastroenterology] - See instructions Morris Robbins MD [Primary Care Provider, Medical] - See instructions Activity Restrictions/Add. Instructions Additional Instructions/Restrictions: As we discussed I am sending a prescription into your pharmacy. Also please plan to follow-up with Dr. Ta for the 2 following your labs serially. Given the elevated liver enzymes acutely have also referred you to gastroenterology for investigation of that issue. Please call tomorrow to make your appointment. If you have any new or worsening signs or symptoms please return to the ER as needed. Clinical Impressions Clinical Impression: Urinary tract infectious disease, Leukopenia, Transaminitis Print Language Print Language: Wolof Discharge ED Provider: Sharona Garza General Adult HPI General Chief complaint: Weakness Stated complaint: feels terrible, nausea and body aches Time Seen by Provider: 12/08/24 16:05 Mode of Arrival: Ambulatory Source of Information: Patient and Spouse Description of Symptoms (Recalled from ER Triage Doc. by RN): Patient presents to ED for generalized weakness starting Friday evening. Reports s/s accompanied by headache, nausea/loss of appetite, chills, and just not feeling well . History of Present Illness HPI narrative: Patient presents for 4 days of bodyaches malaise subjective fever headache. She denies actually cough shortness of breath abdominal pain she has had nausea but no vomiting or diarrhea dysuria or urinary symptoms. Related Data Home Medications ?Medication ?Instructions ?Recorded ?Confirmed simvastatin 40 mg tablet 40 mg PO DAILY Cholesterol 3 0 days 10/06/12/08/24 Previous Rx's ?Medication ?Instructions ?Recorded sulfamethoxazole 800 1 tab PO BID 5 days #10 tabs 12/08/24 mg-trimethoprim 160 mg tablet (Bactrim DS) Allergies Allergy/AdvReac Type Severity Reaction Status Date / Time No Known Allergies Allergy Verified 03/12/23 10:27 [facility] Disclaimer: The information contained in this section may have been updated after the patient was seen, as this information can be updated by other users. Medical History (Updated 12/08/24 @ 18:19 by GOKUL Ingram) Abnormal mammogram of left breast Mixed stress and urge urinary incontinence Surgical History History of tubal ligation History of total abdominal hysterectomy Family History Other Heart disease Social History Smoking Status: Former smoker second hand exposure: No alcohol intake: never substance use type: denies use current occupational status: retired Travel in the last 8 weeks?: None household members: spouse housing: house current occupational exposures/hazards: No caffeine: Yes Have you lived/traveled outside [place] in past 30 days?: No Contact w/someone who lives/traveled outside US past 30 days?: No Exposure to someone with infectious disease in past 14 days?: No Do you have a fever (greater than 100.4 F or 38 C)?: No Have you tested positive for COVID-19?: No Exposed to someone with COVID-19 in past 14 days?: No Do you have a sore throat?: No Do you have a cough?: No Do you have any weakness?: No Do you have any diarrhea?: No Are you experiencing any unusual bleeding?: No Do you have any muscle aches/pain?: Yes Do you have any abdominal pain?: Yes Are you experiencing loss of taste or smell?: No Other Medical History Have you received the Flu Vaccine for this season: Yes Have you received the Pneumonia Vaccine: No ROS Obtained: Yes Systems reviewed as appropriate & no additional complaints except as documented Physical Exam General General appearance: alert Respiratory Respiratory exam: Present normal lung sounds bilaterally Cardiovascular Cardiovascular exam: Present regular rate Neurological Exam Neurological exam: Present alert and oriented X3 Medical Decision Making Medical Records Medical records reviewed: Yes I reviewed the patient's medical records. Screening: Per USPSTF and CDC recommendations, given the prevalence of disease in our region, it is our hospital?s policy to screen for HIV and viral Hepatitis for all patients aged 18 and over and those with ongoing risk factors. Victor Manuel Inquiry Pt receiving controlled substance: No Vital Signs: 12/08/24 15:59 12/08/24 15:59 12/08/24 16:00 Temperature 99.2 F 99.2 F Temperature Source Oral Pulse Rate 82 79 Pulse Rate [Left Radial] 82 Respiratory Rate 18 18 Blood Pressure 131/52 L 129/55 L Blood Pressure [Left Arm] 131/52 L Blood Pressure Mean [Left Arm] 78 Blood Pressure Source [Left Arm] Automatic Cuff Blood Pressure Position [Left Arm] Right Lateral 02 Sat by Pulse Oximetry 100 100 99 Oxygen Delivery Method Room Air 12/08/24 16:41 12/08/24 17:00 12/08/24 18:42 Temperature 98.5 F Temperature Source Pulse Rate 82 83 84 Pulse Rate [Left Radial] Respiratory Rate 16 Blood Pressure 149/65 H 121/86 138/64 Blood Pressure [Left Arm] Blood Pressure Mean [Left Arm] Blood Pressure Source [Left Arm] Blood Pressure Position [Left Arm] 02 Sat by Pulse Oximetry 98 96 Oxygen Delivery Method Lab Data Lab results reviewed: Yes I reviewed the patient's lab results. Lab Results 12/08/24 16:24: Chlamy pneumoniae PCR Not detected, Adenovirus (PCR) Not detected, B. pertussis DNA (PCR) Not detected, Coronavirus OC43 (PCR) Not detected, Coronavirus HKU1 (PCR) Not detected, Coronavirus 229E (PCR) Not detected, SARS-CoV-2 (PCR) Not detected, Coronavirus NL63 (PCR) Not detected, Human Metapneumovir PCR Not detected, Influenza A (H1) PCR Not detected, Influ A (H1N1/09) PCR Not detected, Influenza A (H3) PCR Not detected, Influenza Type A (PCR) Not detected, Influenza Type B (PCR) Not detected, M. pneumoniae (PCR) Not detected, Parainfluenza 1 (PCR) Not detected, Parainfluenza 2 (PCR) Not detected, Parainfluenza 3 (PCR) Not detected, Parainfluenza 4 (PCR) Not detected, RSV (PCR) Not detected, Entero/Rhino (PCR) Not detected 12/08/24 16:35: WBC 2.8 L, RBC 4.43, Hgb 12.8, Hct 39.9, MCV 90.1, MCH 28.9, MCHC 32.1, RDW 12.6, Plt Count 136 L, MPV 11.4 H, Neut % (Auto) 77.9, Lymph % (Auto) 14.5, [place] % (Auto) 5.8, Eos % (Auto) 0.0 L, Baso % (Auto) 0.7, Neut # (Auto) 2.1, Lymph # (Auto) 0.4 L, [place] # (Auto) 0.2, Eos # (Auto) 0.0, Baso # (Auto) 0.0, Total Counted 100, Neutrophils % (Manual) 81 H, Lymphocytes % (Manual) 12, Monocytes % (Manual) 7, Platelet Estimate Normal, RBC Morphology Normal, Sodium 137, Potassium 3.8, Chloride 103, Carbon Dioxide 28, Anion Gap 9.8, BUN 18 H, Creatinine 0.70, Estimated Creat Clear 73, Estimated GFR 84, Est GFR ( Amer) 102, Glucose 140 H, Calcium 9.1, Magnesium 2.0, Total Bilirubin 1.3, AST 203 H, ALT 202 H, Alkaline Phosphatase 150 H, Total Creatine Kinase 86, Total Protein 7.2, Albumin 4.3, Globulin 2.9, Albumin/Globulin Ratio 1.5, Procalcitonin 0.345, Urine Color Dark yellow, Urine Appearance Sl cloudy, Urine pH 6.0, Ur Specific [place] >= 1.030, Urine Protein 2+ A, Urine Glucose (UA) Negative, Urine Ketones 1+, Urine Blood Negative, Urine Nitrate Negative, Urine Bilirubin Negative, Urine Urobilinogen 4.0, Ur Leukocyte Esterase Negative, Urine RBC 10-20, Urine WBC 5-10, Ur Squamous Epith Cells 10-20, Urine Bacteria 3+, Urine Mucus 4+, Urine Trichomonas Not Reportable, Monoscreen Negative 12/08/24 16:35 12/08/24 16:35 Orders (Tests/Meds): ED MEDICATIONS Discontinued Medications Generic Name Dose Route Start Last Admin Trade Name Freq PRN Reason Stop Dose Admin Acetaminophen 1,000 mg 12/08/24 16:19 12/08/24 16:45 Acetaminophen 500mg Tab PO 12/08/24 16:20 1,000 mg ONCE ONE Administration Sodium Chloride 1,000 mls @ 999 mls/hr 12/08/24 16:19 12/08/24 16:41 Sod Chlor 0.9% 1000ml Bag IV 12/08/24 17:19 999 mls/hr .Q1H1M ONE Administration Ketorolac Tromethamine 15 mg 12/08/24 16:19 12/08/24 16:43 Ketorolac 30mg/Ml Vial IV 12/08/24 16:20 15 mg ONCE ONE Administration Ondansetron HCl 4 mg 12/08/24 16:19 12/08/24 16:42 Ondansetron 4mg/2ml Vial IV 12/08/24 16:20 4 mg ONCE ONE Administration Trimethoprim/Sulfamethoxazole 1 each 12/08/24 18:15 12/08/24 18:40 Sulfa/Trimethoprim 1 Tablet PO 12/08/24 18:16 1 each ONCE ONE Administration ORDERS Category Date Time Status CBC w/Auto Diff [Complete Blood Count Auto Diff] Stat Lab 12/08/24 16:35 Completed CK [Creatine Kinase] Stat Lab 12/08/24 16:35 Completed CMP [Comprehensive Metabolic Panel] Stat Lab 12/08/24 16:35 Completed Full Resp Panel w/COVID ([facility]) Routine Lab 12/08/24 16:24 Completed Hepatitis Panel Routine Lab 12/08/24 16:35 Received Magnesium Stat Lab 12/08/24 16:35 Completed Monoscreen (Rapid) Stat Lab 12/08/24 16:35 Completed Procalcitonin Stat Lab 12/08/24 16:35 Completed UA [Urinalysis and Microscopic] Stat Lab 12/08/24 16:35 Completed Urine Culture Stat Micro 12/08/24 16:35 Received Medical Decision Narrative: In summary patient is a 64-year-old female who presents to the emergency department for evaluation of subjective fever malaise headache and myalgias. Patient is hemodynamically stable with a blood pressure 131/52 pulse 82 with sinus rhythm on the bedside monitor breathing 18 times a minute satting at 100% on room air upon arrival, with a temperature of 99.2. Physical exam is remarkable for clear breath sounds with no increased work of breathing, patient has no cervical lymphadenopathy or any regional lymphadenopathy, abdomen soft nontender no rebound or guarding no rigidity.. Differential diagnosis includes viral infection versus bacterial infection such as pneumonia or urinary tract infection although patient has no specific focal symptoms to suggest the body system currently. Initial workup will be conducted with hematologic labs plain film chest x-ray urinalysis. Initial interventions include crystalloid bolus Tylenol Toradol Zofran. Initial workup reviewed by me and her hematologic labs are significant for a white count of 2.8 normal H&H and differential shows a lymphopenia of 0.4 suggestive of a viral pattern. Patient has elevated transaminases with an AST of 203 and ALT of 202 and alk phos of 150 with a normal bilirubin of 1.3 procalcitonin is detectable but within the normal range of 0.345 urinalysis shows 2+ of protein +1 of ketones negative for leukocyte Estrace however microscopic exam shows 10-20 red cells 5-10 white cells 10-20 epithelial cells 3+ bacteria. Of note the original urinalysis was erroneously reported as having 4+ trichomoniasis. I had an initial conversation with the patient and her about those findings and afterwards called the lab to have them double check the results and they admitted that it was a missed click as trichomoniasis is right next to mucus on the microscopic reporting check boxes. I then reupdated the patient that it was indeed a lab error due to a missed click on the reporting. Upon repeat evaluation patient reports significant improvement in her constitutional symptoms after initial intervention.. Given this I suspect the patient has a viral pathogen although I am not sure what her Monospot was negative and respiratory panel was negative and her symptoms may be all due to a urinary tract infection. To that end I am starting patient on Bactrim with first dose given here. Patient is to follow-up closely with her PCP for laboratory recheck. I will also refer the patient onto gastroenterology for the transaminitis. Patient verbalized understanding and agreement. Critical Care Critical Care Time Critical Care Time: No
[2024-12-08 16:30] LABS: Adenovirus,PCR Not Detected (NotDetected); Chlamydophila Pneumoniae, PCR Not Detected (NotDetected); Coronavirus 19, PCR Not Detected (NotDetected); Coronovirus HKU1,PCR Not Detected (NotDetected); Influenza A, PCR Not Detected (NotDetected); Influenza AH1, 2009 Not Detected (NotDetected); Influenza AH1, PCR Not Detected (NotDetected); Influenza AH3,PCR Not Detected (NotDetected); Influenza B, PCR Not Detected (NotDetected); Mycoplasma Pneumoniae, PCR Not Detected (NotDetected); Parainfluenza 1, PCR Not Detected (NotDetected); Parainfluenza 2, PCR Not Detected (NotDetected); Parainfluenza 3, PCR Not Detected (NotDetected); Parainfluenza 4, PCR Not Detected (NotDetected)
[2024-12-08] MEDS: 0.9 % SODIUM CHLORIDE 1000ML 1,000 ML 999 ML IV (16:41)
[2024-12-08] MEDS: ONDANSETRON 4MG/2ML VIAL 4 MG IV (16:42)
[2024-12-08] MEDS: KETOROLAC 30MG/ML VIAL 15 MG IV (16:43)
[2024-12-08] MEDS: ACETAMINOPHEN 500MG TAB 1000 MG PO (16:45)
[2024-12-08 16:56] LABS: Microscopic, Urine URINE MICROSCOPIC (MICROSCOPIC)
[2024-12-08 16:59] LABS: Hematocrit 39.9 % (37.0-47.0); Hemoglobin 12.8 g/dL (12.2-16.2); Immature Granulocytes % 1.1 %; Mean Corpuscular HGB Conc 32.1 g/dL (31.8-35.4); Mean Corpuscular Hemoglobin 28.9 pg (27.0-31.2); Mean Corpuscular Volume 90.1 fl (81-99); Nucleated Red Blood Cells % 0 %; Platelet Count 136 K/mm3 (142-424); Red Blood Count 4.43 M/mm3 (4.20-5.40); Red Cell Distribution Width-SD 41.6 fL; White Blood Count 2.8 K/mm3 (4.8-10.8)
[2024-12-08 17:00] LABS: Glucose,Urine (UA) Negative (Negative); Ketones,Urine 1+ (Negative); Leukocyte Esterase,Urine Negative (Negative); PH,Urine 6.0 (5.0-8.5); Protein,Urine 2+ (Negative); Specific Gravity, Urine >= 1.030 (1.005-1.030); Urobilinogen,Urine 4.0 EU/dl (0.2)
[2024-12-08 17:08] LABS: Color,Urine Dark Yellow (Yellow)
[2024-12-08 17:09] LABS: Bilirubin,Urine Negative (Negative)
[2024-12-08 17:14] LABS: Alanine Aminotransferase 202 U/L (12-78); Albumin Level 4.3 g/dl (3.5-5.0); Albumin/Globulin Ratio 1.5 (1.1-1.8); Alkaline Phosphatase 150 U/L (38-126); Anion Gap 9.8 mEq/L (5-15); Aspartate Amino Transferase 203 U/L (14-36); Bilirubin,Total 1.3 mg/dl (0.2-1.3); Blood Urea Nitrogen 18 mg/dl (7-17); Calcium 9.1 mg/dl (8.4-10.2); Carbon Dioxide 28 mmol/L (22.0-30.0); Chloride 103 mmol/L (98-107); Creatinine Clearance Estimated 73 mL/min (50-200); Creatinine,Serum 0.70 mg/dl (0.52-1.04); Estimated Glomerular Filt Rate 84 ml/min (>60); GFR (African American) 102 ML/MIN (>60); Globulin 2.9 g/dL (1.3-3.2); Glucose 140 mg/dl (74-100); Potassium 3.8 mmoL/L (3.5-5.1); Sodium 137 mmol/L (136-145); Total Protein,Serum 7.2 g/dl (6.3-8.2)
[2024-12-08 17:15] LABS: Magnesium 2.0 mg/dl (1.6-2.3)
[2024-12-08 17:25] LABS: Bacteria,Urine 3+ /lpf; Monoscreen (Rapid) Negative (Negative)
[2024-12-08 17:31] LABS: Procalcitonin 0.345 ng/mL (0.0-2.0)
[2024-12-08 17:41] LABS: Creatine Kinase 86 U/L (30-135)
[2024-12-08 17:54] LABS: RBC Morphology Normal; Total Cells Counted 100
[2024-12-08 18:06] LABS: Mucus,Urine 4+ /lpf
[2024-12-08] MEDS: SULFA/TRIMETHOPRIM 1 TABLET 1 EACH PO (18:40)
== END 2024-12-08 19:47 | disposition home or self-care (01) ==
PROVIDERS: Physician Assistant; Emergency Provider Emergency Medicine; PCP Family Medicine
DX: N39.0 Urinary tract infection, site not specified (principal); D72.819 Decreased white blood cell count, unspecified; R74.01 Elevation of levels of liver transaminase levels; R11.0 Nausea; R51.9 Headache, unspecified
CPT/HCPCS: 0223U; 80053; 80074; 81001; 82550; 83735; 84145; 85007; 85025; 85027; 86318; 87086; 87491; 87591; 87633; 87661; 96361; 96374; 96375; 99284; J1885; J2405; J7030

== ENCOUNTER 2024-12-09 06:45 | Emergency (ER) | payer BC, SELFPAY ==
--- OUTSIDE RECORDS SUMMARY | 2024-05-05 09:45 | XMS_ITS ---
Author Organization [facility] Address [address] [facility] [address] [id number] Care Team Providers Care Debt Recovery Officer Name Role Phone Berny Reynoso Primary Care Provider Rylie Mclean Unavailable [phone] Allergies No Known Allergies Results Component Value [...] 05/05/2024 Encounters Encounter Location Date Provider Diagnosis [facility] [address] [place], [place] [id number] 05/05/2024 Rylie Mclean Acute URI J06.9 Assessments [...] Notes * JESSICA BONILLADOB:1960 (64 yo F)Acc No.[id number]:05/05/2024 Progress Notes Patient: JESSICA RAMAN Provider: GOKUL Horowitz :1960 A ge:63 Y S ex:Female Date:05/05/2024 Address:[address] [place] [address], [place], [id number] Pcp:Berny Reynoso Subjective: * Chief Complaints: * [...] * Procedure Codes: 9 4760 [place], [address] CAPILLARY BLOOD DRAW, 94751 CBC WITH AUTO DIFF, 14273 Flu Test- Nasal Swab, Modifiers: QW , 44703 COVID TEST IN HOUSE, Modifiers: QW * Follow Up: p rn * Images: Billing Information: * Visit Code: 13635 Office Visit, Est Pt., Level 3. * Procedure Codes: [address] [place]. [address] CAPILLARY BLOOD DRAW. 97496 CBC WITH AUTO DIFF. 43865 Flu Test- Nasal Swab. Modifiers: QW 30208 COVID TEST IN HOUSE. Modifiers: QW * Electronic signature of GOKUL Combs on 12/09/2024 at 07:06 AM EDT Sign off status: Pending * Provider: GOKUL Horowitz Date: 1 07/06/2023 Generated for Printi ng/Faleightong/eTransmitting on: 0 12/09/2024 07:06 AM EDT History and Physical Notes * HPI [...]
--- OUTSIDE RECORDS SUMMARY | 2024-08-02 07:30 | XMS_ITS ---
Author Organization [facility] Address [address] [facility] [address] [place] [id number] Care Team Providers Care Bicycle Service Technician Name Role Phone Berny Reynoso Primary Care Provider [phone] Cheryle Brownlee Unavailable [phone] Allergies No Known Allergies REASON FOR VISIT Discuss Weight Loss Options Medications Medication SIG (Take, Route, Frequency, Duration) Notes Start Date End Date Status Wegovy 0.25 MG/0.5ML 0.5 ml Subcutaneous weekly; Duration: 30 day(s) 08/02/2024 Active Contrave 8-90 MG take 1 tab qd x 1 we ek; then 1 tab bid x 1 week ;then 2 tabs qam and 1 in pm x 1 week Orally Once a day; Duration: 30 day(s) 08/02/2024 Active Sertraline HCl 25 MG Take 1 tablet by mo uth once daily Orally Once a day; Duration: 30 days Needs appt Active Simvastatin 40 MG TAKE 1 TABLET BY CHASITY TH AT BEDTIME; Duration: 90 Active Vital Signs Blood pressure systolic 128 mm Hg 08/03/19 25 Blood pressure diastolic 70 mm Hg 025 Heart Rate 84 /min 08/02/2024 Height 68 in 08/02/2024 Weight 193.2 lbs 08/02/2024 BMI 29.37 kg/m2 08/02/2024 Encounters Encounter Location Date Provider Diagnosis [facility] [address] [place] [id number] 08/02/2024 Cheryle Brownlee Weight gain R63.5 an d Weight loss counseling, encounter for Z71.3 Assessments Encounter Date Diagnosis (ICD Code) Assessment Notes Treatment Notes Treatment Clinical Notes Section Notes 08/02/2024 Weight gain (ICD-10 - R63.5) will try Contrave while awaiting approval of Wegovy; discussed; healthy foods, MVI, portion sizes and exercise 08/02/2024 Weight loss counseling, encounter for (ICD-10 - Z71.3) discussed plan for weight loss Plan Of Treatment Medication Medication Name Sig Start Date Stop Date Notes Wegovy 0.25 MG/0.5ML 0.5 ml Subcutaneous weekly; Duration: 30 day(s) 08/02/2024 Contrave 8-90 MG take 1 tab qd x 1 we ek; then 1 tab bid x 1 week ;then 2 tabs qam and 1 in pm x 1 week Orally Once a day; Duration: 30 day(s) 08/02/2024 Treatment Notes Assessment Notes Weight gain will try Contrave wh ile awaiting approval of Wegovy; discussed; healthy foods, MVI, portion sizes and exercise Weight loss counseling, encounter for di isaiased plan for weight loss Next Appt Details Follow Up: 4 weeks after sta rting med, Reason: Progress Notes * REG BONILLAB:1960 (64 yo F)Acc No.[id number]:08/02/2024 Progress Notes Patient: JESSICA RAMAN Provider: CRISTA Johnson :1960 A ge:63 Y S ex:Female Date:08/02/2024 Address:[address] [place] [address], [place], [place] Pcp:Berny Reynoso Subjective: * Chief Complaints: * 1 . Discuss Weight Loss Options. * HPI: H PI: 63 year old female presents with c/o Patient is here today for?Pt is here today to discuss weight loss options. Pt sts her weight keeps going up and up but sts she would like to loose a little bit of her weight. tried some off label injections and developed severe heartburn and stopped it. * ROS: D ERMATOLOGY: no R sukhi. n o H wilda. G ASTROENTEROLOGY: no N ausea. n o V omiting. n o D iarrhea.? U ROLOGY: no D ifficulty urinating. n o B lood in urine. * Medical History: H yperlipidemia. * Surgical History: h ysterectomy abdominal . * Hospitalization/Major Diagno stic Procedure: H chest pains 06/06/13. * Family History: F [...] ouside [place]: no. * Medications: T aking Simvastatin 40 MG Tablet TAKE 1 TABLET BY MOUTH AT BEDTIME , Taking Sertraline HCl 25 MG Tablet Take 1 tablet by mouth once daily Orally Once a day , Notes to Pharmacist: Needs appt, Medication List reviewed and reconciled with the patient * Allergies: N .K.D.A. Objective: * Vitals: W t:193.2, Temp:98.3, BP:128/70, HR:84, O2 Sat:96% on RA, Nurse:yvette, Ht: 68, BMI:29.37. * Examination: G eneral Examination: General Appearance: NAD, appears healthy, alert, pleasant. H eart: RRR. L ungs: CTAB A&P. N eurologic Exam: alert and oriented. E xtremities: no leg edema. Assessment: * Assessment: 1. W eight gain - R63.5 (Primary) S pecify :BMI 29 2 . W eight loss counseling, encounter for - Z71.3 Plan: * Treatment: 2. W eight loss counseling, encounter for Notes: discussed plan for weight loss * Procedure Codes: 3 074F SYST BP LT 130 MM HG, 3078F DIAST BP < 80 MM HG * Follow Up: 4 weeks after starting med * Images: Billing Information: * Visit Code: 13200 Office Visit, Est Pt., Level 4. * Procedure Codes: 3074F SYST BP LT 130 MM HG. 3078F DIAST BP < 80 MM HG. * Electronic signature of Kiki Brownlee APRN on 12/09/2024 at 07:06 AM EDT Sign off status: Pending * Provider: CRISTA Johnson Date: 0 08/02/2024 Generated for Hoda norman/Lisset/Constanza on: 0 12/09/2024 07:06 AM EDT History and Physical Notes * HPI (History of Present Illness) Category Sub-Category Detail Notes Category Not es HPI Patient is here toda y for Pt is here today to discuss weight loss options. Pt sts her weight keeps going up and up but sts she would like to loose a little bit of her weight tried some off label injections and developed severe heartburn and stopped it Examination Category Sub-Category Detail Notes Category Not es General Examination Heart: RRR Lungs: CTAB A&P Extremities: no leg edema General Appearance: NAD, appears healthy , alert, pleasant Neurologic Exam: alert and oriented
--- OUTSIDE RECORDS SUMMARY | 2024-12-08 11:35 | XMS_ITS ---
Author Organization [facility] Address 1210 [facility] [address] [place] [id number] Care Team Providers Care Electronic Scale Tester Name Role Phone Berny Reynoso Primary Care Provider Rylie Mclean Unavailable [phone] Allergies No Known Allergies REASON FOR VISIT not feeling well Encounters Encounter Location Date Provider Diagnosis [facility] [address] [place] [id number] 12/08/2024 Rylie Mclean Plan Of Treatment No Information Progress Notes * JESSICA BONILLADOB:1960 (64 yo F)Acc No.[id number]:12/08/2024 Progress Notes Patient: JESSICA RAMAN Provider: GOKUL Horowitz :1960 A ge:64 Y S ex:Female Date:12/08/2024 Address:[address] [place] [address], [place], [id number] Pcp:Berny Reynoso Subjective: * Chief Complaints: * [...] status: Pending * Provider: GOKUL Horowitz Date: 0 12/08/2024 Generated for Hoda norman/Lisset/Constanza on: 12/09/2024 07:06 AM EDT
[2024-12-09 06:47] VITALS: BP 158/68; PULSE 82; RESP 14; TEMP 37.2; O2SAT 98; BMI 27.3
--- NOTE | 2024-12-09 06:52 | ECG_ITS ---
APPROVED REPORT Exam: Resting ECG HR:81 bpm ECG Measurements Heart Rate 81 AXES SD 152 P -10 QRSd 83 QRS 57 QT 376 T 34 QTc 413 Conclusion SINUS RHYTHM NORMAL ECG UNCONFIRMED REPORT Normal sinus rhythm. No ST elevation or depression. Electronically signed by : NANDINI MARADIAGA, 12/10/2024 07:10:14
--- NOTE | 2024-12-09 06:59 | PC.NURSE ---
IV attempt per Linda GUZMAN with no success. Pt to be US guided IV stick.
[2024-12-09 07:00] VITALS: BP 143/65; PULSE 78; O2SAT 97
--- OUTSIDE RECORDS SUMMARY | 2024-12-09 07:06 | XMS_ITS | Patient Health Record ---
Author Organization [facility] Address [address] [facility] [address] [id number] Care Team Providers Care Clinical Immunologist Name Role Phone Berny Reynoso Primary Care Provider Cheryle Brownlee Unavailable [phone] Rylie Mclean Unavailable [phone] Allergies No Known Allergies Results Component Value Reference Range Notes H-Glycohemoglobin A1C Reviewed date:01/12/2024 09:20:13 AM Interpretation:5.7 Performing Lab: Notes/Report: HGBA1C 5.7 4.0-6.0 % < 6% Non-Diabetic Level < 7% Controlled Diabetic Level > 8% Poorly Controlled Diabetic Level H-CMP Reviewed date:03/08/2024 12:34:59 PM Interpretation: Performing Lab: Notes/Report: H-Lipid Panel Reviewed date:01/12/2024 09:01:54 AM Interpretation:TG 127; LDL 73.07; HDL 58 Performing Lab: Notes/Report: Patient Fasting? Y TRIG 127 30-150 mg/dl CHOL 175 140-200 mg/dl DLDL 73.07 100-129 mg/dL VLDL 25 0-40 mg/dL HDL 58 40-60 mg/dl CHLHDL 3.0 1-3.5 H-TSH Reviewed date:01/12/2024 09:03:04 AM Interpretation:Normal 2.39 Performing Lab: Notes/Report: TSH 2.39 0.465-4.68 uIU/mL Influenza Screen (in house) Reviewed date:05/05/2024 11:03:45 [...] 01/30/2022 Administered xFlu shot- 6months-36 months of ujp-[id number]-trivalent Unknown 03/22/2016 Administered xFlu shot-36 months and older IM Intramuscular 04/30/2005 Administered xFlu shot-36 months and older Unknown 03/22/2016 Administered Problems Problem Type SNOMED Code ICD Code Onset Dates Problem Status W/U Status Risk Notes Problem Hyperlipidemia (98739376) Hyperlipidemia (272.4) Active confirmed Problem Insomnia (435272094) Insomnia (G47.00) Active c onfirmed Problem Hyperlipidemia (77135729) Hyperlipidemia (E78.5) Active confirmed Problem Paresthesia (99507323) Paresthesia (R20.2) Active confirmed Problem Flank pain (609624523) Flank pain (R10.9) Active confirmed Problem Polyarthritis (706347915) Polyarthritis (M13.0) Active confirmed Problem Pure hypercholesterolemia (007262908) Pure hypercholesterolemia (E78.00) Active confirmed Problem Urge incontinence of urine (19302226) Urge incontinence of urine (N39.41) Active confirmed Problem Gastroesophageal reflux disease (459434996) Gastroesophageal reflux disease, unspecified whether esophagitis present (K21.9) Active confirmed Vital Signs Heart Rate 84 /min 08/02/2024 Blood pressure diastolic 70 mm Hg 08/02/2024 Height 68 in 08/02/2024 Blood pressure systolic 128 mm Hg 08/02/2024 Weight 193.2 lbs 08/02/2024 BMI 29.37 kg/m2 08/02/2024 Encounters Encounter Location Date Provider Diagnosis [facility] [address] [facility] [address] [place], [place] [id number] 01/06/2024 Cheryle Brownlee Weight loss R63.4 ; Tick bite W57.XXXA and Hyperlipidemia E78.5 [facility] [address] [place], [place] [id number] 01/08/2024 Cheryle Brownlee Hyperlipidemia E78.5 and Weight loss R63.4 [facility] [address] [facility] [address] [place], [place] [id number] 05/05/2024 Rylie Mclean Acute URI J06.9 [facility] [address] [place], [place] [id number] 08/02/2024 Cheryle Brownlee Weight gain R63.5 an d Weight loss counseling, encounter for Z71.3 [facility] [address] [place], [place] [id number] 01/07/2024 Cheryle Brownlee [facility] [address] [place], [place] [id number] 01/12/2024 Berny [place] [facility] [address] [place], [place] [id number] 01/13/2024 Berny [place] [facility] [address] [place], [place] [id number] 08/03/2024 Cheryle Brownlee Assessments Encounter Date Diagnosis [...] JUDI [employer]ZO [employer] [address] [place] [address] [id number] JESSICA BONILLA Self - patient is the [...] abdominal Hospitalization History Reason Date(Month/Year) [facility] chest pains 06/06/13
--- NOTE | 2024-12-09 07:08 | XR_ITS ---
FINAL REPORT CLINICAL HISTORY: Fever, intermittent shortness of breath COMPARISON: None FINDINGS: CHEST 2 VIEWS There are minimal increased markings in the left lung base, likely atelectasis although pneumonia not excluded. The right lung is clear. The mediastinum has a normal appearance. The cardiac silhouette is unremarkable. IMPRESSION: Increased markings left lung base, atelectasis favored over pneumonia. Reviewed, Interpreted and Dictated by Jane Green MD Transcribed by Hawa Garcia Authenticated and [facility]
--- OUTSIDE RECORDS SUMMARY | 2024-12-09 07:08 | XMS_ITS | Clinical Summary ---
Author Organization [facility] Address [address] [place] [address] Phone Care Team Providers Care Cook Jelly Name Role Phone Sanjiv Harris MD Primary Care Provider [phone] Allergies No known active allergies Medications simvastatin [...] EDT Impressions 10/24/2022 8:45 AM EDT Negative ([id number]-5) ~ RECOMMENDATION: Routine screening mammogram in 1 [...] the next mammogram, in accordance with the [employer] and the Society of Breast Imaging recommendations. Narrative 10/24/2022 8:45 AM EDT Procedure:MM MAMMO DIGITAL DAMIEN SCREEN BILAT ~ Reason for exam: screening, asymptomatic. Z12.31-Encounter for screening mammogram for malignant neoplasm of [id number]-CM ~ MM MAMMO DIGITAL DAMIEN SCREEN BILAT [...] for screening mammogram for malignant neoplasm of [id number] ~ MM MAMMO DIGITAL DAMIEN SCREEN BILAT Bilateral CC and MLO view(s) were taken. The breast tissue is heterogeneously dense. This may lower thesensitivity of mammography. Prior study comparison: Compared with prior studies the most recentbeing 08/02/16 No mammographic evidence of malignancy. ~ IMPRESSION: Negative ([id number]-Whxhijuu-5) ~ RECOMMENDATION: Routine screening mammogram in 1 [...] the next mammogram, in accordance with the [employer] and the Society of Breast Imaging recommendations. us Godfrey Duran MD IMG MAMMOGRAPHY ORDERABLES Fin al Result * HEPATITIS C ANTIBODY - SCREENING (12/25/2016 9:24 AM EDT) Hep C Ab Negative Negative [facility] Blood specimen (specimen) UPPER LIMB STRUCTURE / Unknown 12/25/2016 9:24 AM EDT 12/25/2016 4:20 PM EDT us Josie Rust MD HEMATOLOGY ORDERABLES Sayra l Result Performing Organization Address City/State/[facility] Co de Phone Number [facility] [address] [place] [address] from Last 3 Months or Most Recently Relevant to Health Maintenance Insurance Care Teams Cook Jelly Relationship Specialty Start Date End Date Sanjiv Harris MD [facility] [address] [facility] [id number] PCP - General Family Medicine 12/05/17
--- NOTE | 2024-12-09 07:11 | [facility].EDGENADL ---
Discharge Plan Disposition Patient Disposition: Home, Self-Care Prescriptions Prescriptions: New ondansetron 4 mg tablet,disintegrating 4 mg PO Q6H PRN (Reason: nausea and vomiting) Qty: 20 0RF doxycycline hyclate 100 mg capsule 100 mg PO BID 7 Days Qty: 14 0RF No Action simvastatin 40 mg tablet 40 mg PO DAILY 30 Days sulfamethoxazole-trimethoprim [Bactrim DS] 800-160 mg tablet 1 tab PO BID 5 Days Qty: 10 0RF Referrals Follow up/Referrals: Cheko Dial MD [Staff Physician, General Surgery] - See instructions Morris Robbins MD [Primary Care Provider, Medical] - See instructions Activity Restrictions/Add. Instructions Additional Instructions/Restrictions: You are being referred to general surgeon, Dr. Dial, for your thickened gallbladder, which I do not feel is contributing to your symptoms today. You are being sent with prescription for doxycycline, an antibiotic, as well as Zofran to help with your nausea. Take these in addition to the Bactrim prescribed to you previously. You can also take Tylenol, ibuprofen and Benadryl at home to help with your symptoms. I encourage you to also follow-up with your primary care physician over the next few days if symptoms do not improve. Your symptoms are likely caused by a viral illness causing inflammation of the liver but should resolve on its own over time. I encourage you to follow-up with the science consultant due to your elevated liver enzymes as discussed on your previous visit. You were also found to have a mild pneumonia, which the antibiotics you are being prescribed will treat. If you develop any new or worsening symptoms, or if you become concerned for your health for any reason, return to the emergency department for evaluation Clinical Impressions Clinical Impression: Nausea, Headache, Elevated liver enzymes, Pneumonia Print Language Print Language: Polish Discharge ED Provider: Darren Luque Adult HPI General Chief complaint: Weakness Stated complaint: can't eat, fever, WHITNEY, general unease Time Seen by Provider: 12/09/24 06:59 Mode of Arrival: Ambulatory Source of Information: Patient and Spouse Description of Symptoms (Recalled from ER Triage Doc. by RN): Pt presents to the ed with c/o generalized weakness and over all not feeling well which she was seen for last PM and intructed to come back if not feeling any better. Pt states they told me my white blood cell count was low and my liver enzymes were elevated Pt then reports there's one thing I forgot to tell them yesterday was I pulled a tick off of me on 11/26 I don't know if that has anything to do with this or not Pt reports associated headaches and fever which has somewhat resloved since coming x1 day ago. Pt reports PO intake. History of Present Illness HPI narrative: Nithya Meng is a 64y female with a history of high cholesterol who presents to the emergency department for complaints of headache, nausea without vomiting and subjective fever at home. Patient states that since Friday, she has had nausea and decreased appetite. She reports headache as well. She states that she has had decreased oral intake secondary to her nausea. She denies any chest pain or cough. She reports some intermittent shortness of breath. She was seen in the emergency department yesterday and was told that she had a urinary tract infection and was discharged with prescription for Bactrim, however she was not able to pick it up given that it was after hours. She was also told that her liver enzymes were elevated and was told to follow-up with GI/PCP. She states that she is never had liver issues in the past. She denies any alcohol, tobacco or recreational drug use. She reports some abdominal discomfort but denies any diarrhea. She denies any dysuria or hematuria. Related Data Home Medications ?Medication ?Instructions ?Recorded ?Confirmed simvastatin 40 mg tablet 40 mg PO DAILY Cholesterol 30 days 10/06/17 12/08/24 Previous Rx's ?Medication ?Instructions ?Recorded sulfamethoxazole 800 1 tab PO BID 5 days #10 tabs 12/08/24 mg-trimethoprim 160 mg tablet (Bactrim DS) doxycycline hyclate 100 mg capsule 100 mg PO BID 7 days #14 caps 12/09/24 ondansetron 4 mg disintegrating 4 mg PO Q6H PRN nausea and 12/09/24 tablet vomiting #20 tabs Allergies Allergy/AdvReac Type Severity Reaction Status Date / Time No Known Allergies Allergy Verified 03/12/23 10:27 [facility] Disclaimer: The information contained in this section may have been updated after the patient was seen, as this information can be updated by other users. Medical History (Updated 12/09/24 @ 09:19 by Darren Luque MD) Abnormal mammogram of left breast Mixed stress and urge urinary incontinence Surgical History History of tubal ligation History of total abdominal hysterectomy Family History Other Heart disease Social History Smoking Status: Never smoker second hand exposure: No alcohol intake: never substance use type: denies use current occupational status: retired Travel in the last 8 weeks?: None household members: spouse housing: house current occupational exposures/hazards: No caffeine: Yes Have you lived/traveled outside [place] in past 30 days?: No Contact w/someone who lives/traveled outside [place] past 30 days?: No Exposure to someone with infectious disease in past 14 days?: No Do you have a fever (greater than 100.4 F or 38 C)?: No Have you tested positive for COVID-19?: No Exposed to someone with COVID-19 in past 14 days?: No Do you have a sore throat?: No Do you have a cough?: No Do you have any weakness?: No Do you have any diarrhea?: No Are you experiencing any unusual bleeding?: No Do you have any muscle aches/pain?: No Do you have any abdominal pain?: No Are you experiencing loss of taste or smell?: No Other Medical History Have you received the Flu Vaccine for this season: Yes Have you received the Pneumonia Vaccine: No ROS Obtained: Yes Systems reviewed as appropriate & no additional complaints except as documented Physical Exam General General appearance: alert and in no apparent distress Head Head exam: atraumatic Eye Eye exam: Present normal appearance ENT ENT exam: Present normal external ear exam Neck Neck exam: Present full ROM Chest Chest inspection: Present symmetric chest wall rise Respiratory Respiratory exam: Present normal lung sounds bilaterally; Absent respiratory distress, wheezes or stridor Cardiovascular Cardiovascular exam: Present regular rate and normal rhythm Abdominal Exam Abdominal exam: Present soft and tenderness (RUQ, epigastric, LLQ); Absent guarding Extremities Exam Extremities exam: Present normal inspection Back Exam Back exam: Present normal inspection Neurological Exam Neurological exam: Present alert and oriented X3 Psychiatric Psychiatric exam: Present normal affect Skin Skin exam: Present warm and dry Medical Decision Making Medical Records Screening: Per USPSTF and CDC recommendations, given the prevalence of disease in our region, it is our hospital?s policy to screen for HIV and viral Hepatitis for all patients aged 18 and over and those with ongoing risk factors. Victor Manuel Inquiry Pt receiving controlled substance: No Vital Signs: 12/09/24 06:47 12/09/24 07:00 12/09/24 08:00 Temperature 98.9 F Temperature Source Oral Pulse Rate 78 76 Pulse Rate [Radial] 82 Respiratory Rate 14 Blood Pressure 143/65 H 126/57 L Blood Pressure [Right Arm] 158/68 H Blood Pressure Mean [Right Arm] 98 Blood Pressure Position [Right Arm] Sitting 02 Sat by Pulse Oximetry 98 97 97 Oxygen Delivery Method Room Air Room Air Room Air 12/09/24 09:00 12/09/24 09:32 Temperature Temperature Source Pulse Rate 77 88 Pulse Rate [Radial] Respiratory Rate Blood Pressure 130/59 L 144/57 H Blood Pressure [Right Arm] Blood Pressure Mean [Right Arm] Blood Pressure Position [Right Arm] 02 Sat by Pulse Oximetry 96 94 L Oxygen Delivery Method Room Air Lab Data Lab Results 12/09/24 07:08: VBG pH 7.43 H, VBG pCO2 33.5 L, VBG pO2 78.6 H, VBG HCO3 21.9 L, VBG Total CO2 22.9 L, VBG O2 Saturation 96.0 H, VBG Base Excess -2.4, VBG Lactic Acid 0.9 12/09/24 07:10: WBC 2.5 L, RBC 4.13 L, Hgb 12.4, Hct 36.8 L, MCV 89.1, MCH 30.0, MCHC 33.7, RDW 12.5, Plt Count 122 L, MPV 11.5 H, Neut % (Auto) 77.0, Lymph % (Auto) 13.7, [place] % (Auto) 8.1, Eos % (Auto) 0.0 L, Baso % (Auto) 0.8, Neut # (Auto) 1.9, Lymph # (Auto) 0.3 L, [place] # (Auto) 0.2, Eos # (Auto) 0.0, Baso # (Auto) 0.0, Total Counted 100, Neutrophils % (Manual) 74, Lymphocytes % (Manual) 15, Monocytes % (Manual) 8, Basophils % (Manual) 1.0, Metamyelocytes % 2.0 H, Platelet Estimate Slight decrease, RBC Morphology Normal, Sodium 135 L, Potassium 3.9, Chloride 102, Carbon Dioxide 24, Anion Gap 12.9, BUN 14, Creatinine 0.60, Estimated Creat Clear 73, Estimated GFR 101, Est GFR ( Amer) 122, Glucose 110 H D, Calcium 8.7, Magnesium 1.9, Total Bilirubin 1.4 H, AST 174 H, ALT 175 H, Alkaline Phosphatase 210 H, Total Protein 6.4, Albumin 3.7 D, Globulin 2.7, Albumin/Globulin Ratio 1.4, Lipase 58 12/09/24 07:10 12/09/24 07:10 Orders (Tests/Meds): ED MEDICATIONS Discontinued Medications Generic Name Dose Route Start Last Admin Trade Name Freq PRN Reason Stop Dose Admin Diphenhydramine HCl 25 mg 12/09/24 07:08 12/09/24 07:38 Diphenhydramine 50mg/Ml Vial IV 12/09/24 07:09 25 mg ONCE ONE Administration Lactated Ringer's 500 mls @ 250 mls/hr 12/09/24 07:11 12/09/24 07:34 Lactated Ringer's 1000 Ml Bag IV 12/09/24 09:10 250 mls/hr .Q2H ONE Administration Iopamidol 75 ml 12/09/24 08:28 12/09/24 08:30 Iopamidol-370 (76%);100ml Bottle IV 12/09/24 08:29 75 ml ONCE ONE Administration Ketorolac Tromethamine 15 mg 12/09/24 07:08 12/09/24 07:41 Ketorolac 30mg/Ml Vial IV 12/09/24 07:09 15 mg ONCE ONE Administration Methylprednisolone Sodium Succinate 60 mg 12/09/24 07:31 12/09/24 07:35 Methylprednisolone Sod Succ 125mg Vial IV 12/09/24 07:32 60 mg ONCE ONE Administration Ondansetron HCl 4 mg 12/09/24 07:08 12/09/24 07:39 Ondansetron 4mg/2ml Vial IV 12/09/24 07:09 4 mg ONCE ONE Administration Sodium Chloride 10 ml 12/09/24 08:28 12/09/24 08:29 Sodium Chloride 0.9% 10ml Syr (Rad Only) IV 12/09/24 08:29 10 ml ONCE ONE Administration ORDERS Category Date Time Status CT abdomen pelvis w con Stat Cat Scan 12/09/24 07:15 Completed CXR 2 view (NOT portable) [XR chest 2V] Stat Exams 12/09/24 07:08 Completed CBC w/Auto Diff [Complete Blood Count Auto Diff] Stat Lab 12/09/24 07:10 Completed CMP [Comprehensive Metabolic Panel] Stat Lab 12/09/24 07:10 Completed Lipase Stat Lab 12/09/24 07:10 Completed Magnesium Stat Lab 12/09/24 07:10 Completed VBG [Venous Blood Gas] Stat RT 12/09/24 07:08 Completed ECG Data Tracing #1: I reviewed this ECG and interpreted as documented below: Normal sinus rhythm. No ST elevation or depression. QTc normal at 413. Medical Decision Narrative: Nithya Meng is a 64y female with a history of high cholesterol who presents to the emergency department for complaints of headache, nausea without vomiting and subjective fever at home. Patient states that since Friday, she has had nausea and decreased appetite. She reports headache as well. She states that she has had decreased oral intake secondary to her nausea. She denies any chest pain or cough. She reports some intermittent shortness of breath. She was seen in the emergency department yesterday and was told that she had a urinary tract infection and was discharged with prescription for Bactrim, however she was not able to pick it up given that it was after hours. She was also told that her liver enzymes were elevated and was told to follow-up with GI/PCP. She states that she is never had liver issues in the past. She denies any alcohol, tobacco or recreational drug use. She reports some abdominal discomfort but denies any diarrhea. She denies any dysuria or hematuria. On arrival, patient mildly hypertensive with blood pressure 158/68, heart rate within normal limits, afebrile with temperature 98.9 ?F, breathing comfortably room air with oxygen saturation 98% SpO2. Physical exam, stated above, reveals an ill but nontoxic-appearing female in no distress. Cardiopulmonary exam is unremarkable. She has some mild right upper quadrant, epigastric and right lower quadrant tenderness without guarding or rebound. Less than 2-second capillary refill. Mucous membranes appear moist. Patient does note that she has been able to drink water, however still feels dehydrated. Differential diagnosis includes, but is not limited to: Viral illness, tension headache, migraine headache, dehydration, electrolyte derangement, metabolic derangement, acute pancreatitis, viral hepatitis, biliary pathology, among others. The most morbid conditions were considered and workup was based on these. Workup in the emergency department included: CT abdomen pelvis with IV contrast, 2 view chest x-ray, CBC, CMP, lipase, VBG with lactic, magnesium level, EKG. Patient symptoms were treated with 4 mg IV Zofran, 1 L lactated ringer, 15 mg IV Toradol, 25 mg IV Benadryl. Patient stated that her lip swelled up last time she got IV contrast, will administer Benadryl as well as 60 mg IV methylprednisolone prior to CT scan. Previous records were reviewed. Patient's workup yesterday showed negative full viral panel. White blood cell count mildly low at 2.8. BUN of 18 but creatinine normal. AST of 203, ALT of 202, alk phos mildly elevated at 150. Procalcitonin normal at 0.345. Urine with 2+ protein, 1+ ketones, nitrate negative, leukocyte Estrace negative, 10-20 RBCs, 5-10 WBC. 3+ bacteria. Patient had falsely reported trichomonas. Patient had a negative Monospot test. Patient was instructed follow-up with PCP and was given referral to GI given elevated liver enzymes. Patient was also prescribed Bactrim Chest x-ray interpreted by me personally. No focal consolidation, no pneumothorax, no pleural effusions. No widening of the mediastinum. Grossly unremarkable chest x-ray. See final radiology report for details. Laboratory studies interpreted by me personally. Patient has persistent leukopenia with white blood cell count of 2.5 (was 2.8 yesterday), no anemia, platelets continue to downtrend and 122 but nonactionable. VBG grossly unremarkable and nonactionable with normal lactate of 0.9. Mild hyponatremia of 135 but no ELIOT, electrolytes otherwise unremarkable and nonactionable. Liver enzymes downtrending with AST of 174, ALT of 175, alk phos of 210. Bilirubin mildly elevated at 1.4 (was previously 1.3), lipase normal at 58. CT imaging interpreted by me personally prior to official radiology read. Patient has a thickened gallbladder wall but no evidence of biliary ductal dilation or gallstones or pericholecystic fluid. No other acute findings within the abdomen or pelvis. Patient could potentially have pneumonia in the bilateral lung bases. Given patient's intermittent shortness of breath, we will treat with antibiotics. Patient also noted that she was bitten by a tick on the 26 of November. Out of an abundance of caution, will add Doxycycline to the patient's regimen, which includes Bactrim prescribed on previous visit. Will also send with prescription for Zofran. Encouraged her to follow-up with GI, to whom she was referred on last visit, to follow-up her liver enzymes. Also encouraged her to follow-up with her primary care physician that she may need repeat blood work over the course of the next week. She was able to tolerate feels significantly better. Oral intake here in the emergency department and is felt that she is appropriate for discharge at this time. Will give referral to general surgery for her thickened gallbladder. Encouraged her to follow-up with GI. return precautions were given. All questions were answered. She demonstrated understanding and was in agreement this plan. She was then discharged from the emergency department in stable condition. Critical Care Critical Care Time Critical Care Time: No
--- NOTE | 2024-12-09 07:15 | CT_ITS ---
FINAL REPORT TECHNIQUE: IV contrast enhanced exam This study was performed with techniques to keep radiation doses as low as reasonably achievable, (ALARA). Individualized dose reduction techniques using automated exposure control or adjustment of mA and/or kV according to the patient's size were employed. CLINICAL HISTORY: nausea, right sided abdominal pain COMPARISON: None FINDINGS: CT ABDOMEN PELVIS WITH CONTRAST Abdomen: There are mild increased markings in the lung bases, that may represent interstitial pneumonia or atelectasis. The gallbladder demonstrates mild nonspecific wall thickening up to 4 mm, without evidence of distention or stone disease. No biliary ductal dilatation is identified. A left renal cyst is noted, otherwise the solid organs are unremarkable in appearance. No evidence of bowel obstruction is identified. Pelvis: The appendix is normal in appearance. Pelvic bowel loops are unremarkable. No fluid collection or adenopathy is seen. The patient is post hysterectomy. IMPRESSION: 1. Nonspecific mild gallbladder wall thickening without evidence of stone disease or biliary ductal dilatation. 2. No evidence of bowel obstruction is identified. 3. Increased markings in the lung bases, interstitial pneumonia or atelectasis. Reviewed, Interpreted and Dictated by Jane Green MD Transcribed by Ana Rosa Batista Authenticated and [facility]
[2024-12-09 07:25] LABS: Lactate Venous 0.9 mmol/L (0.4-2.0); VBG HCO3 21.9 mmol/L (23-30); VBG PCO2 33.5 mmol/L (35-51); VBG PH 7.43 mmol/L (7.31-7.41); VBG PO2 78.6 mmol/L (28-40)
[2024-12-09 07:25] LABS: Hematocrit 36.8 % (37.0-47.0); Hemoglobin 12.4 g/dL (12.2-16.2); Immature Granulocytes % 0.4 %; Mean Corpuscular HGB Conc 33.7 g/dL (31.8-35.4); Mean Corpuscular Hemoglobin 30.0 pg (27.0-31.2); Mean Corpuscular Volume 89.1 fl (81-99); Nucleated Red Blood Cells % 0 %; Platelet Count 122 K/mm3 (142-424); Red Blood Count 4.13 M/mm3 (4.20-5.40); Red Cell Distribution Width-SD 41.0 fL; White Blood Count 2.5 K/mm3 (4.8-10.8)
[2024-12-09] MEDS: LACTATED RINGERS 1000ML 500 ML 250 ML IV (07:34)
[2024-12-09] MEDS: METHYLPREDNISOLONE SOD SUCC 125MG VIAL 60 MG IV (07:35)
[2024-12-09] MEDS: ONDANSETRON 4MG/2ML VIAL 4 MG IV (07:39)
[2024-12-09] MEDS: KETOROLAC 30MG/ML VIAL 15 MG IV (07:41)
[2024-12-09 07:42] LABS: Alanine Aminotransferase 175 U/L (12-78); Albumin Level 3.7 g/dl (3.5-5.0); Albumin/Globulin Ratio 1.4 (1.1-1.8); Alkaline Phosphatase 210 U/L (38-126); Anion Gap 12.9 mEq/L (5-15); Aspartate Amino Transferase 174 U/L (14-36); Bilirubin,Total 1.4 mg/dl (0.2-1.3); Blood Urea Nitrogen 14 mg/dl (7-17); Calcium 8.7 mg/dl (8.4-10.2); Carbon Dioxide 24 mmol/L (22.0-30.0); Chloride 102 mmol/L (98-107); Creatinine Clearance Estimated 73 mL/min (50-200); Creatinine,Serum 0.60 mg/dl (0.52-1.04); Estimated Glomerular Filt Rate 101 ml/min (>60); GFR (African American) 122 ML/MIN (>60); Globulin 2.7 g/dL (1.3-3.2); Glucose 110 mg/dl (74-100); Lipase 58 U/L (23-300); Magnesium 1.9 mg/dl (1.6-2.3); Potassium 3.9 mmoL/L (3.5-5.1); Sodium 135 mmol/L (136-145); Total Protein,Serum 6.4 g/dl (6.3-8.2)
[2024-12-09 08:00] VITALS: BP 126/57; PULSE 76; O2SAT 97
[2024-12-09 08:09] LABS: Total Cells Counted 100
[2024-12-09 08:10] LABS: RBC Morphology Normal
--- NOTE | 2024-12-09 08:24 | PC.NURSE ---
Pt transported to CT now
[2024-12-09] MEDS: SODIUM CHLORIDE 0.9% 10ML SYR (RAD ONLY) 10 ML IV (08:29)
[2024-12-09] MEDS: IOPAMIDOL-370 (76%);100ML BOTTLE 75 ML IV (08:30)
[2024-12-09 09:00] VITALS: BP 130/59; PULSE 77; O2SAT 96
[2024-12-09 09:32] VITALS: BP 144/57; PULSE 88; O2SAT 94
[2024-12-09 10:04] VITALS: BP 144/57; PULSE 92; RESP 20; TEMP 36.8; O2SAT 98
== END 2024-12-09 10:12 | disposition home or self-care (01) ==
PROVIDERS: Emergency Provider Student in an Organized Health Care Education/Training Program; PCP Family Medicine
DX: R51.9 Headache, unspecified (principal); R74.8 Abnormal levels of other serum enzymes; E78.5 Hyperlipidemia, unspecified
CPT/HCPCS: 71046; 74177; 80053; 82803; 83690; 83735; 85007; 85025; 85027; 93005; 96361; 96374; 96375; 99285; J1200; J1885; J2405; J2919; J7120; Q9967

== ENCOUNTER 2024-12-10 20:11 | Observation (INO) | payer BC, SELFPAY ==
--- OUTSIDE RECORDS SUMMARY | 2022-12-04 08:50 | XMS_ITS | Continuity of Care Document ---
Author Organization [facility] Address [address] [place] [address] Phone Care Team Providers Care Serging Machine Operator Name Role Phone Rahul Coelho MD Unavailable Unavailable Allergies, Adverse Reactions, Alerts Substance Reaction Status Criticality No Known Allergies Active No Inform ation Medications Medication Instructions Dosage Effective Dates (start - stop) Status Comments Prolensa 0.07 % eye drops Instill 1 drop by ophthalmic route in the operative eye once the day before surgery and once the morning of. Continue QD x 4 weeks - Active Substitute: 1. Bromsite 1 drop QD in operative eye day before and morning of surgery, and 4 weeks after. 2.Ketorolac (.4% or .5%) 1 drop QD before surgery & morning of. Taper directed for 4 weeks Inveltys 1 % eye drops,suspension instill 1 drop by ophthalmic route in the surgery eye 3 times daily AFTER surgery and Taper as directed - Active Substitute: 1. Lotemax SM-0.38% (If copay is more than $60, please apply coupon card) 2.Prednisolone Acetate 1%. (1&2dispensed same as above)Both-1 drop TID after surgery, taper as directed Besivance 0.6 % eye drops,suspension Instill 1 drop by ophthalmic route TID into operative eye the day before and 1 drop the morning of surgery. Continue TID for 1 week. - Active Subsutution: Vigamox (moxi) 0.5% 3ml-Instill 1 drop by ophthalmic route TID into operative eye 1 day before surgery and 1 drop the morning of surgery. Continue for TID for 1 weeK simvastatin 10 mg tablet take 1 tablet by oral route every day in the evening 10 MG - Active Procedures Procedure Date Ophthalmic Biometry W Iol Calculation Un ilateral Ophthal DX Image Post Retina I And R Uni Or Bi OFFICE/OUTPATIENT VISIT, NEW Advance Directives Directive Yes / No Effective Date File Name No Information Encounters Encounter Description Practice Location Reason(s) For Visit Diagnoses Date Provider Providers Copied on Encounter [facility] Physician s, [address] [facility] [address], [place], [address], [place] tel:[phone] [facility] Jim Teague No Information 3 Laquita Kay. [address], [place], [place], [id number] , [place]. tel:[phone] OFFICE/OUTPA TIENT VISIT, [place] [facility] Physician simone, [address] [facility] [place] [place], [address], [place] tel:[phone] [facility] Loop cataract (chief complaint) Cataract - Nuclear sclerosis, both eyesMGD - upper and lower lids, right eyeMGD - upper and lower lids, left eyeret - early dry ARMD, bilateralDry Eye - Keratoconjunctivitis sicca, non-Sjogren's, bilateral 3 Laquita Kay. [address], [place], [place], [id number] , [place]. [phone] Referring Provider: Rahul Hunter, [address] , [place], [address] . tel:[phone] Family History Family Member Type Diagnosis Age At Onset Mother Problem (finding) Macular degeneration Father Problem cataract Mother Problem (finding) Stroke Father Problem hypertension Problem No family history of Cancer, unknown Mother Problem Retinal disease Mother Problem cataract Father Problem (finding) Cardiovascular disease Problem No family history of Glaucom a Father Problem Diabetes mellitus Payers Payer name Insurance type Covered green party ID Authoriza tion(s) Self Pay 09 Social History Type Description Quantity Date Captured Comments Sex Female Smoking Status No Information Chief Complaint And Reason For Visit No Information Reason For Referral Reason For Referral No Information Plan Of Treatment Date Type Action Status Goal Tobacco cessation counseling completed History Of Present Illness Encounter Date Complaint History Of Prese nt Illness cataract The 61 year old female presents for evaluation of cataract in the right and left eyes. Patient presents with poor vision in [place]. She has been wearing glasses (bifocals) for many years and lately feels that they are no longer working - specifically has issues with distance tasks and inparticular, driving. No improvent with updating specs. Pt was interested in LASIK and was told in [place] that she could get LASIK and cataracts removed at the same time. Vision is gradually worsening. Patient is having difficulty with glare driving at night. No improvement with glasses. Pt states that she really struggles with reading currently. Glaucoma/Retina/Macula Degen FHx: mother macular degeneration(-) History of crossed or lazy eye (-) Flomax (tamsulosin) use(-) Eye trauma(-) Diabetes(-) Blood thinners(-) Prior LASIK/PRK (-) History of eye surgery(-) Prior CTL wear Functional Status Date Functional Assessmen t No Information Instructions Date Instruction Additional Trinir roxann Impression/Plan Assessments Type Assessment Date No Information Patient Care Teams Name Effective Dates (start - stop) Status Members No Information
--- OUTSIDE RECORDS SUMMARY | 2024-05-05 09:45 | XMS_ITS ---
Author Organization [facility] Address [address] [facility] [address] [phone] Care Team Providers Care Brand Mgr Name Role Phone Berny Reynoso Primary Care Provider [phone] Rylie Mclean Unavailable [phone] Allergies No Known Allergies Results Component Value [...] capsule Orally at bedtime Active Vital Signs Weight 197.8 lbs 05/05/2024 Blood pressure systolic 128 mm Hg 05/05/20 24 Blood pressure diastolic 68 mm Hg 024 Heart Rate 88 /min 05/05/2024 Height 68 in 05/05/2024 BMI 30.07 kg/m2 05/05/2024 Encounters Encounter Location Date Provider Diagnosis [facility] [address] [place], [place] [id number] 05/05/2024 Rylie Mlcean Acute URI J06.9 Assessments Encounter Date Diagnosis [...] Notes * JESSICA BONILLADOB:1960 (64 yo F)Acc No.[id number]:05/05/2024 Progress Notes Patient: JESSICA RAMAN Provider: GOKUL Horowitz :1960 A ge:63 Y S ex:Female Date:05/05/2024 Address:[address] [place] [address], [place], [id number] Pcp:Berny Reynoso Subjective: * Chief Complaints: * [...] * Procedure Codes: 9 4760 [place], [address] CAPILLARY BLOOD DRAW, 69412 CBC WITH AUTO DIFF, 46030 Flu Test- Nasal Swab, Modifiers: QW , 95618 COVID TEST IN HOUSE, Modifiers: QW * Follow Up: p rn * Images: Billing Information: * Visit Code: 83775 Office Visit, Est Pt., Level 3. * Procedure Codes: [address] [place]. [address] CAPILLARY BLOOD DRAW. 83207 CBC WITH AUTO DIFF. 70937 Flu Test- Nasal Swab. Modifiers: QW 64644 COVID TEST IN HOUSE. Modifiers: QW * Electronic signature of GOKUL Combs on 12/10/2024 at 09:29 PM EDT Sign off status: Pending * Provider: GOKUL Horowitz Date: 1 07/06/2023 Generated for Printi ng/Faleightong/eTransmitting on: 0 12/10/2024 09:29 PM EDT History and Physical Notes * [...]
--- OUTSIDE RECORDS SUMMARY | 2024-08-02 07:30 | XMS_ITS ---
Author Organization [facility] Address [address] [facility] [address] [place] [phone] Care Team Providers Care Helix Coil Winder Name Role Phone Berny Reynoso Primary Care Provider Cheryle Brownlee Unavailable [phone] Allergies No Known Allergies REASON FOR VISIT [...] 08/02/2024 Encounters Encounter Location Date Provider Diagnosis [facility] [address] [place] [id number] 08/02/2024 Cheryle Brownlee Weight gain R63.5 an [...] Notes * REG BONILLAB:1960 (64 yo F)Acc No.[id number]:08/02/2024 Progress Notes Patient: JESSICA RAMAN Provider: CRISTA Johnson :1960 A ge:63 Y S ex:Female Date:08/02/2024 Address:[address] [place] [address], [place], [id number] Pcp:Berny Reynoos Subjective: * Chief Complaints: * 1 . [...] * Images: Billing Information: * Visit Code: 30265 Office Visit, Est Pt., Level 4. * Procedure Codes: 3074F SYST BP LT 130 MM HG. 3078F DIAST BP < 80 MM HG. * Electronic signature of Kiki Brownlee APRN on 12/10/2024 at 09:29 PM EDT Sign off status: Pending * Provider: CRISTA Johnson Date: 0 08/02/2024 Generated for Hoda norman/Lisset/Constanza on: 0 12/10/2024 09:29 PM EDT History [...]
--- OUTSIDE RECORDS SUMMARY | 2024-12-08 11:35 | XMS_ITS ---
Author Organization [facility] Address [address] [facility] [address] [place] [id number] Care Team Providers Care Correctional Supply Supervisor Name Role Phone Berny Reynoso Primary Care Provider [phone] Rylie Mclean Unavailable [phone] Allergies No Known Allergies REASON FOR VISIT not feeling well Encounters Encounter Location Date Provider Diagnosis [facility] [address] [place] [id number] 12/08/2024 Rylie Mclean Plan Of Treatment No Information Progress Notes * JESSICA BONILLADOB:1960 (64 yo F)Acc No.[id number]:12/08/2024 Progress Notes Patient: JESSICA RAMAN Provider: GOKUL Horowitz :1960 A ge:64 Y S ex:Female Date:12/08/2024 Address:[address] [place] [address] [address], [place], [id number] Pcp:Berny Reynoso Subjective: * Chief Complaints: * 1 . Not feeling well. * ROS: D ERMATOLOGY: no R suhki. n o H wilda. G ASTROENTEROLOGY: no [...] active: yes. Travel ouside [place]: no. * Allergies: N .K.D.A. Objective: * Vitals: Assessment: Plan: * Treatment: * Images: Billing Information: * Visit Code: * Procedure Codes: * Electronic signature of GOKUL Combs on 12/10/2024 at 09:29 PM EDT Sign off status: Pending * Provider: GOKUL Horowitz Date: 12/08/2024 Generated for Hoda norman/Lisset/Constanza on: 12/10/2024 09:29 PM EDT
--- NOTE | 2024-12-10 21:24 | HMH.EDGENADL ---
Discharge Plan Disposition Patient Disposition: Admitted Condition: Good Discharge ED Provider: Adeline Morfin General Adult HPI General Chief complaint: Headache Stated complaint: WHITNEY,fever Time Seen by Provider: 12/10/24 21:24 History of Present Illness HPI narrative: Patient is a 64-year-old female with no significant past medical history who presented to the emergency department with concern for headache, myalgias, generalized weakness and fatigue. Patient states that she has now been here in the emergency department 3 times for similar symptoms. Patient states that she was here yesterday for abdominal pain had a's CT scan that was unremarkable and was told that her liver enzymes are elevated. Patient states that she had a headache yesterday but it resolved and then returned this morning and is currently a 10 out of 10. Patient states that her headache was not acute onset. Patient reports having headache since Friday. Patient states that she has taken Tylenol and ibuprofen at home but her headache usually will return. Patient denies any cough but does report some upper respiratory symptoms. Patient reports some cough but denies any chest pain. Patient denies any abdominal pain vomiting diarrhea today. Patient does report that she had removed a tick from herself on 26 November and was given doxycycline yesterday. Patient is also taking Bactrim for UTI. Related Data Home Medications ?Medication ?Instructions ?Recorded ?Confirmed simvastatin 40 mg tablet 40 mg PO DAILY Cholesterol 30 days 10/06/17 12/08/24 Previous Rx's ?Medication ?Instructions ?Recorded sulfamethoxazole 800 1 tab PO BID 5 days #10 tabs 12/08/24 mg-trimethoprim 160 mg tablet (Bactrim DS) doxycycline hyclate 100 mg capsule 100 mg PO BID 7 days #14 caps 12/09/24 ondansetron 4 mg disintegrating 4 mg PO Q6H PRN nausea and 12/09/24 tablet vomiting #20 tabs Allergies Allergy/AdvReac Type Severity Reaction Status Date / Time No Known Allergies Allergy Verified 03/12/23 10:27 [facility] Disclaimer: The information contained in this section may have been updated after the patient was seen, as this information can be updated by other users. Medical History (Updated 12/09/24 @ 09:19 by Darren Luque MD) Abnormal mammogram of left breast Mixed stress and urge urinary incontinence Surgical History History of tubal ligation History of total abdominal hysterectomy Family History Other Heart disease Social History Smoking Status: Never smoker second hand exposure: No alcohol intake: never substance use type: denies use current occupational status: retired Travel in the last 8 weeks?: None household members: spouse housing: house current occupational exposures/hazards: No caffeine: Yes Have you lived/traveled outside US in past 30 days?: No Contact w/someone who lives/traveled outside US past 30 days?: No Exposure to someone with infectious disease in past 14 days?: No Do you have a fever (greater than 100.4 F or 38 C)?: No Have you tested positive for COVID-19?: No Exposed to someone with COVID-19 in past 14 days?: No Do you have a sore throat?: No Do you have a cough?: No Do you have any weakness?: No Do you have any diarrhea?: No Are you experiencing any unusual bleeding?: No Do you have any muscle aches/pain?: No Do you have any abdominal pain?: No Are you experiencing loss of taste or smell?: No Other Medical History Have you received the Flu Vaccine for this season: Yes Have you received the Pneumonia Vaccine: No ROS Obtained: Yes All systems reviewed & no additional complaints except as documented and Yes Systems reviewed as appropriate & no additional complaints except as documented Physical Exam General General appearance: alert and in no apparent distress Head Head exam: atraumatic, normocephalic and normal inspection Eye Eye exam: Present normal appearance, PERRL and EOMI; Absent scleral icterus ENT ENT exam: Present normal exam and normal external ear exam Neck Neck exam: Present normal inspection and full ROM Chest Chest inspection: Present normal inspection and symmetric chest wall rise Respiratory Respiratory exam: Present normal lung sounds bilaterally; Absent respiratory distress or wheezes Cardiovascular Cardiovascular exam: Present regular rate, normal rhythm and normal heart sounds Abdominal Exam Abdominal exam: Present soft and distention; Absent tenderness, guarding or rebound Extremities Exam Extremities exam: Present normal inspection and full ROM Back Exam Back exam: Present normal inspection and full ROM Neurological Exam Neurological exam: Present alert and oriented X3 Psychiatric Psychiatric exam: Present normal affect and normal mood Skin Skin exam: Present warm and dry Medical Decision Making Medical Records Screening: Per USPSTF and CDC recommendations, given the prevalence of disease in our region, it is our hospital?s policy to screen for HIV and viral Hepatitis for all patients aged 18 and over and those with ongoing risk factors. Victor Manuel Inquiry Pt receiving controlled substance: No Vital Signs: 12/10/24 21:25 Temperature 98.2 F Temperature Source Oral Pulse Rate [Left] 84 Respiratory Rate 17 Blood Pressure [Right Arm] 147/66 H Blood Pressure Mean [Right Arm] 93 Blood Pressure Source [Right Arm] Automatic Cuff Blood Pressure Position [Right Arm] Supine 02 Sat by Pulse Oximetry 97 Oxygen Delivery Method Room Air Lab Data Lab results reviewed: Yes I reviewed the patient's lab results. Lab Results 12/11/24 00:20: WBC 3.2 L D, RBC 3.59 L, Hgb 10.5 L, Hct 31.8 L, MCV 88.6, MCH 29.2, MCHC 33.0, RDW 13.0, Plt Count 123 L, MPV 11.7 H, Neut % (Auto) 63.8, Lymph % (Auto) 25.2, Charlton % (Auto) 10.1 H, Eos % (Auto) 0.0 L, Baso % (Auto) 0.3, Neut # (Auto) 2.0, Lymph # (Auto) 0.8, Charlton # (Auto) 0.3, Eos # (Auto) 0.0, Baso # (Auto) 0.0, Sodium 134 L, Potassium 3.9, Chloride 107, Carbon Dioxide 26, Anion Gap 4.9 L, BUN 12, Creatinine 0.60, Estimated Creat Clear 73, Estimated GFR 101, Est GFR ( Amer) 122, Glucose 107 H, Calcium 7.8 L, Magnesium 1.5 L D, Total Bilirubin 1.2, AST 320 H* D, ALT 269 H D, Alkaline Phosphatase 277 H, Troponin I 0.01, Total Protein 5.6 L, Albumin 3.1 L, Globulin 2.5, Albumin/Globulin Ratio 1.2 12/11/24 00:20 12/11/24 00:20 Orders (Tests/Meds): ED MEDICATIONS Generic Name Dose Route Start Last Admin Trade Name Freq PRN Reason Stop Dose Admin Acetaminophen 650 mg 12/11/24 01:00 Acetaminophen 325mg Tab PO 01/10/25 00:59 Q6HP PRN Fever or Mild Pain (1-3) Doxycycline Hyclate 100 mg 12/11/24 09:00 Doxycycline Hycl 100 Mg Tablet PO 12/21/24 08:59 BID RIMMA Sodium Chloride 1,000 mls @ 500 mls/hr 12/10/24 22:00 12/11/24 01:09 Sod Chlor 0.9% 1000ml Bag IV 01/09/25 21:59 500 mls/hr .Q2H RIMMA Administration Sodium Chloride 1,000 mls @ 50 mls/hr 12/11/24 01:00 Sod Chlor 0.9% 1000ml Bag IV 01/10/25 00:59 .Q20H RIMMA Ceftriaxone Sodium 1 gm/ 50 mls @ 100 mls/hr 12/11/24 01:06 12/11/24 01:14 Sodium Chloride IV 12/11/24 01:35 100 mls/hr ONCE ONE Administration Ketorolac Tromethamine 15 mg 12/11/24 05:00 Ketorolac 30mg/Ml Vial IV 12/16/24 04:59 Q6 RIMMA Ondansetron HCl 4 mg 12/11/24 01:05 Ondansetron 4mg/2ml Vial IV 01/10/25 01:04 NEEDED PRN nausea, headache Discontinued Medications Generic Name Dose Route Start Last Admin Trade Name Freq PRN Reason Stop Dose Admin Acetaminophen 1,000 mg 12/10/24 22:02 12/10/24 22:42 Acetaminophen 500mg Tab PO 12/10/24 22:03 1,000 mg ONCE ONE Administration Dexamethasone 10 mg 12/11/24 00:40 12/11/24 01:06 Dexamethasone 1mg/1ml Intensol 10ml Udc (Er) PO 12/11/24 00:41 10 mg ONCE ONE Administration Diphenhydramine HCl 25 mg 12/10/24 22:00 12/10/24 22:42 Diphenhydramine 50mg/Ml Vial IV 12/10/24 22:01 25 mg ONCE ONE Administration Droperidol 2.5 mg 12/10/24 22:00 12/10/24 22:42 Droperidol 5mg/2ml Vial IV 12/10/24 22:01 2.5 mg ONCE ONE Administration Magnesium Sulfate 2 gm in 50 mls @ 50 mls/hr 12/10/24 23:44 12/11/24 00:16 Magnesium Sulfate 2gm/50ml Premix IV 12/11/24 00:43 50 mls/hr ONCE ONE Administration Ketorolac Tromethamine 30 mg 12/10/24 23:44 12/11/24 00:16 Ketorolac 30mg/Ml Vial IV 12/10/24 23:45 30 mg ONCE ONE Administration Ketorolac Tromethamine 30 mg 12/11/24 05:00 Ketorolac 30mg/Ml Vial IV 12/16/24 04:59 Q6 [facility] ORDERS Category Date Time Status CT head/brain wo con Stat Cat Scan 12/10/24 22:00 Completed CXR --portable [XR chest portable] Stat Exams 12/10/24 22:02 Completed CBC w/Auto Diff [Complete Blood Count Auto Diff] Stat Lab 12/10/24 22:00 Completed CMP [Comprehensive Metabolic Panel] Stat Lab 12/10/24 22:00 Completed Full Resp Panel w/COVID ([facility]) Routine Lab 12/10/24 00:12 Received MAG [Magnesium] Stat Lab 12/10/24 22:00 Completed Trop I [Troponin I] Stat Lab 12/10/24 22:00 Completed Troponin I Q3H Lab 12/11/24 01:15 Ordered Troponin I Q3H Lab 12/11/24 04:15 Ordered UA [Urinalysis and Microscopic] Stat Lab 12/11/24 00:41 Ordered Urine Culture Stat Micro 12/11/24 00:41 Ordered Medical Decision Narrative: Patient is a 64-year-old female with no significant past medical history who presented to the emergency department with multiple symptoms including headache, generalized weakness, fatigue. On arrival, patient was hemodynamically stable with unremarkable vital signs, patient was afebrile. Differential includes but not limited to: Nonspecific viral syndrome, mononucleosis, transaminitis, migraine headache, tension headache, intracranial pathology, meningitis, amongst others. Patient had a hepatitis panel as well as a mononucleosis test performed in the last couple days that was unremarkable. Given that patient has had a headache for multiple days and patient is alert and oriented, low concern for bacterial meningitis at this time. Patient had a full respiratory panel that was negative, full respiratory panel was repeated today. CT scan was reviewed and interpreted by myself and showed no acute intracranial pathology. Patient's labs were reviewed and interpreted by myself, CBC showed leukopenia of 3.2, CMP was notable for mild hyponatremia of 134, continued elevation of liver enzymes including AST of 320, ALT of 269, alk phos of 277. Chest x-ray was reviewed and interpreted by myself and showed no acute for consolidation, pneumothorax, pleural effusion or other acute cardiopulmonary process. Of note, patient was sent home with antibiotics including Bactrim for UTI and patient is currently on doxycycline. Patient was ordered Rocephin and doxycycline in the emergency department. Given that patient has had headaches for multiple days with transaminitis, I did discuss the possibility of viral meningitis with the patient and that we could perform a lumbar puncture to rule this out, patient declined a lumbar puncture at this time. Patient headache was treated symptomatically with droperidol, Benadryl, IV fluids as well as Toradol, Tylenol in addition to dexamethasone and magnesium. Patient continued to have a headache here in the emergency department and patient felt uncomfortable discharging home given that this is her third visit in the emergency department this week. I discussed this case with [facility] and they agreed to admit the patient overnight for further management workup. Critical Care Critical Care Time Critical Care Time: No
[2024-12-10 21:25] VITALS: BP 147/66; PULSE 84; RESP 17; TEMP 36.8; O2SAT 97; BMI 27.3
--- OUTSIDE RECORDS SUMMARY | 2024-12-10 21:29 | XMS_ITS | Patient Health Record ---
Author Organization [facility] Address [address] [facility] [address] [id number] Care Team Providers Care Concert Pianist Name Role Phone Berny Reynoso Primary Care Provider Cheryle Brownlee Unavailable [phone] Rylie Mclean Unavailable [phone] Allergies No Known Allergies Results Component Value [...] Interpretation:Negative Performing Lab: Notes/Report: Negative Result: neg H-TSH Reviewed date:01/12/2024 09:03:04 AM Interpretation:Normal [...] 03/22/2016 Administered xFlu shot- 6months-36 months of [id number]-trivalent Unknown 03/22/2016 Administered Shingrix IM Intramuscular 05/02/2021 [...] Status W/U Status Risk Notes Problem Hyperlipidemia (86711387) Hyperlipidemia (272.4) Active confirmed Problem Insomnia (837443227) Insomnia (G47.00) Active c onfirmed Problem Hyperlipidemia (18567150) Hyperlipidemia (E78.5) Active confirmed Problem Paresthesia (17989086) Paresthesia (R20.2) Active confirmed Problem Flank pain (800715147) Flank pain (R10.9) Active confirmed Problem Polyarthritis (409031956) Polyarthritis (M13.0) Active confirmed Problem Pure hypercholesterolemia (378102515) Pure hypercholesterolemia (E78.00) Active confirmed Problem Urge incontinence of urine (84921548) Urge incontinence of urine (N39.41) Active confirmed Problem Gastroesophageal reflux disease (655403983) Gastroesophageal reflux disease, unspecified whether esophagitis present (K21.9) Active confirmed Vital Signs Heart Rate 84 /min 08/02/2024 Blood pressure diastolic 70 mm Hg 08/02/2024 Height 68 in 08/02/2024 Blood pressure systolic 128 mm Hg 08/02/2024 Weight 193.2 lbs 08/02/2024 BMI 29.37 kg/m2 08/02/2024 Encounters Encounter Location Date Provider Diagnosis [facility] [address] [facility] [address] [place], [place] [id number] 01/06/2024 Cheryle Brownlee Weight loss R63.4 ; Tick bite W57.XXXA and Hyperlipidemia E78.5 [facility] [address] [place], [place] [id number] 01/08/2024 Chreyle Brownlee Hyperlipidemia E78.5 and Weight loss R63.4 [facility] [address] [place], [place] [id number] 05/05/2024 Rylie Mclean Acute URI J06.9 [facility] [address] [place], [place] [id number] 08/02/2024 Cheryle Brownlee Weight gain R63.5 an d Weight loss counseling, encounter for Z71.3 [facility] [address] [place], [place] [id number] 01/07/2024 Cheryle Brownlee [facility] [address] [place], [place] [id number] 01/12/2024 Berny Nunnelly [facility] [address] [place], [place] [id number] 01/13/2024 Berny Nunnelly [facility] [address] [place], [place] [id number] 08/03/2024 Cheryle Brownlee Assessments Encounter Date Diagnosis [...] Z71.3) discussed plan for weight loss 01/06/2024 Weight loss (ICD-10 - R63.4) discussed healthy eating with food choices and portion sizes; also discussed ongoing exercise 01/06/2024 Tick bite (ICD-10 - W57.XXXA) 01/06/2024 Hyperlipidemia (ICD-10 - E78.5) 01/08/2024 Hyperlipidemia (ICD-10 - E78.5) 01/08/2024 Weight loss (ICD-10 - R63.4) 01/06/2024 Other to RTC fasting for CMP, A1c TSH, and Lipids Plan Of Treatment No Information Insurance Providers Payer Name Payer Address Payer Phone Subscriber Number Group Number Insured Name Patient Relationship to Insured Coverage Start Date Coverage End Date [employer]I [employer] [address] [place] [address] [phone] [id number] JESSICA BONILLA Self - patient is the [...] Date(Month/Year) hysterectomy abdominal Hospitalization History Reason Date(Month/Year) [facility] chest pains 06/06/13
--- OUTSIDE RECORDS SUMMARY | 2024-12-10 21:30 | XMS_ITS | Clinical Summary ---
Author Organization [facility] Address [address] [place] [id number] Care Team Providers Care Receipt And Report Clerk Name Role Phone Unavailable Primary Care Provider Unavailabl e Social History Tobacco Use Types Packs/Day Years Used Date Smoking Tobacco: Never Assessed Abuse Screen Answer Date Recorded Unsafe at Home or Work/School Not on file Feels Threatened by Someone? Not on file 01/2023 Does Anyone Keep You from Co ntacting Others or Doint Things Outside the Home? Not on file 03/03/2023 Physical Sign of Abuse Present Not on file 1 Housing Stability Answer Date Recorded Current Living Arrangements Not on file 01/2023 Potentially Unsafe Housing Conditions Not on willi e 03/03/2023 Family and Community Support Answer Gabe e Recorded Help with Day-to-Day Activities Not on file 03/03/2023 Lonely or Isolated Not on file 03/03/2023 Employment Answer Date Recorded Do you want help finding or keeping work or a annalise b? Not on file 03/03/2023 Disabilities Answer Date Recorded Concentrating, Remembering, or Making Decisions Difficulty Not on file 03/03/2023 Doing Errands Independently Difficulty Not on fi le 03/03/2023 Education Answer Date Recorded Help with school or training? Not on file Preferred Language Not on file 03/03/2023 Comments Unknown Sex and Gender Information Value Date Recorded Sex Assigned at Not on file Legal Sex Female 11:54 AM EDT Gender Identity Not on file Sexual Orientation Not on file Plan of Treatment Health Maintenance Due Date Last Done Comments ANNUAL PHYSICAL 1960 Annual Gynecologic Pelvic and Breast Exam 1960 HEPATITIS C SCREENING 1960 TDAP/TD VACCINES (1 - Tdap) 12/01/1979 MAMMOGRAM 2000 COLOGUARD 2005 COLON CANCER SCREENING 5 YEAR SIGMOIDOSCOPY 2005 COLONOSCOPY 2005 [address] CANCER SCREENING [address] COLONOGRAPHY 2005 FECAL OCCULT BLOOD TEST 2005 FIT Testing (1 year) 2005 Pneumococcal Vaccine 50+ (1 of 1 - PCV) 2010 ZOSTER VACCINE (1 of 2) 2010 COVID-19 Vaccine (1 - 2023- season) 2024 INFLUENZA VACCINE 02/23/2025
--- OUTSIDE RECORDS SUMMARY | 2024-12-10 21:30 | XMS_ITS | Clinical Summary ---
Author Organization [facility] Address [address] [place] [address] Phone Care Team Providers Care Bridge Toll Collector Name Role Phone Sanjiv Harris MD Primary Care Provider [phone] Allergies No known active allergies Medications simvastatin [...] EDT Impressions 10/24/2022 8:45 AM EDT Negative ([id number]) ~ RECOMMENDATION: Routine screening mammogram in 1 [...] the next mammogram, in accordance with the [employer] and the Society of Breast Imaging recommendations. Narrative 10/24/2022 8:45 AM EDT Procedure:MM MAMMO DIGITAL DAMIEN SCREEN BILAT ~ Reason for exam: screening, asymptomatic. Z12.31-Encounter for screening mammogram for malignant neoplasm of [id number]-EUL-72-CM ~ MM MAMMO DIGITAL DAMIEN SCREEN BILAT [...] for screening mammogram for malignant neoplasm of [id number] ~ MM MAMMO DIGITAL DAMIEN SCREEN BILAT Bilateral CC and MLO view(s) were taken. The breast tissue is heterogeneously dense. This may lower thesensitivity of mammography. Prior study comparison: Compared with prior studies the most recentbeing 08/02/16 No mammographic evidence of malignancy. ~ IMPRESSION: Negative ([id number]-0) ~ RECOMMENDATION: Routine screening mammogram in 1 [...] the next mammogram, in accordance with the [employer] and the Society of Breast Imaging recommendations. us Godfrey Duran MD IMG MAMMOGRAPHY ORDERABLES Fin al Result * HEPATITIS C ANTIBODY - SCREENING (12/25/2016 9:24 AM EDT) Hep C Ab Negative Negative [facility] Blood specimen (specimen) UPPER LIMB STRUCTURE / Unknown 12/25/2016 9:24 AM EDT 12/25/2016 4:20 PM EDT us Josie Rust MD HEMATOLOGY ORDERABLES Sayra l Result Performing Organization Address City/State/[facility] Co de Phone Number [facility] [address] [place] [address] from Last 3 Months or Most Recently Relevant to Health Maintenance Insurance Care Teams Bridge Toll Collector Relationship Specialty Start Date End Date Sanjiv Harris MD [facility] [address] [place] [id number] PCP - General Family Medicine 12/05/17
--- NOTE | 2024-12-10 22:00 | CT_ITS ---
PROCEDURE INFORMATION: Exam: CT Head Without Contrast Exam date and time: 12/10/2024 10:15 PM Age: 64 years old Clinical indication: Pain; Headache; Additional info: Headache, recurrent 03/04 TECHNIQUE: Imaging protocol: Computed tomography of the head without contrast. Radiation optimization: All CT scans at this facility use at least one of these dose optimization techniques: automated exposure control; mA and/or kV adjustment per patient size (includes targeted exams where dose is matched to clinical indication); or iterative reconstruction. COMPARISON: No relevant prior studies available. FINDINGS: Brain: No mass effect or midline shift. No intracranial hemorrhage. No intracranial edema. No evidence of acute territorial ischemia. There is mild diffuse heterogeneity of the white matter attenuation, consistent with chronic white matter microvascular ischemic changes. Cerebral ventricles: The lateral ventricles are somewhat asymmetric in size with the left side slightly larger than the right, which can be a normal finding. Paranasal sinuses: Diffuse mucosal sinus disease throughout the visualized paranasal sinuses without air-fluid level. Mastoid air cells: No significant mastoid effusion. Bones: No acute fracture. Soft tissues: No acute findings. IMPRESSION: 1. No acute intracranial findings. 2. Mild asymmetry of the lateral ventricles which is nonspecific but can be a normal finding. 3. Diffuse mucosal sinus disease without air-fluid level.
--- NOTE | 2024-12-10 22:02 | XR_ITS ---
PROCEDURE INFORMATION: Exam: XR Chest Exam date and time: 12/10/2024 10:16 PM Age: 64 years old Clinical indication: Shortness of breath TECHNIQUE: Imaging protocol: Radiologic exam of the chest. Views: 1 view. COMPARISON: CR XR CHEST 2V 12/09/2024 7:16 AM FINDINGS: Lungs: Low lung volumes. No acute findings or consolidation. Pleural spaces: No pleural effusion. No pneumothorax. Heart/Mediastinum: No acute findings or cardiomegaly. Bones/joints: No acute findings. IMPRESSION: No acute cardiopulmonary findings.
--- NOTE | 2024-12-10 22:41 | ECG_ITS ---
APPROVED REPORT Exam: Resting ECG HR:90 bpm ECG Measurements Heart Rate 90 AXES MT 130 P 56 QRSd 92 QRS 83 QT 354 T -7 QTc 401 Conclusion Normal sinus rhythm at [address] or T wave changes concerning for ischemia Electronically signed by : Adeline Morfin, 12/11/2024 02:23:46
[2024-12-10] MEDS: ACETAMINOPHEN 500MG TAB 1000 MG PO (22:42)
[2024-12-10] MEDS: droPERidol 5MG/2ML VIAL 2.5 MG IV (22:42)
[2024-12-10] MEDS: 0.9 % SODIUM CHLORIDE 1000ML 1,000 ML 500 ML IV (22:42)
[2024-12-11] MEDS: MAGNESIUM SULFATE IN WATER 2 GM/50 ML PIGGYBACK IV (00:16)
[2024-12-11] MEDS: KETOROLAC 30MG/ML VIAL 30 MG IV (00:16)
[2024-12-11] MEDS: 0.9 % SODIUM CHLORIDE 1000ML 1,000 ML 500 ML IV ×2 (00:16→01:09)
[2024-12-11 00:22] LABS: Adenovirus,PCR Not Detected (NotDetected); Chlamydophila Pneumoniae, PCR Not Detected (NotDetected); Coronavirus 19, PCR Not Detected (NotDetected); Coronovirus HKU1,PCR Not Detected (NotDetected); Influenza A, PCR Not Detected (NotDetected); Influenza AH1, 2009 Not Detected (NotDetected); Influenza AH1, PCR Not Detected (NotDetected); Influenza AH3,PCR Not Detected (NotDetected); Influenza B, PCR Not Detected (NotDetected); Mycoplasma Pneumoniae, PCR Not Detected (NotDetected); Parainfluenza 1, PCR Not Detected (NotDetected); Parainfluenza 2, PCR Not Detected (NotDetected); Parainfluenza 3, PCR Not Detected (NotDetected); Parainfluenza 4, PCR Not Detected (NotDetected)
[2024-12-11 00:33] LABS: Hematocrit 31.8 % (37.0-47.0); Hemoglobin 10.5 g/dL (12.2-16.2); Immature Granulocytes % 0.6 %; Mean Corpuscular HGB Conc 33.0 g/dL (31.8-35.4); Mean Corpuscular Hemoglobin 29.2 pg (27.0-31.2); Mean Corpuscular Volume 88.6 fl (81-99); Nucleated Red Blood Cells % 0 %; Platelet Count 123 K/mm3 (142-424); Red Blood Count 3.59 M/mm3 (4.20-5.40); Red Cell Distribution Width-SD 42.6 fL; White Blood Count 3.2 K/mm3 (4.8-10.8)
[2024-12-11 00:35] LABS: Albumin Level 3.1 g/dl (3.5-5.0); Chloride 107 mmol/L (98-107)
[2024-12-11 00:36] LABS: Potassium 3.9 mmoL/L (3.5-5.1); Sodium 134 mmol/L (136-145)
[2024-12-11 00:38] LABS: Alanine Aminotransferase 269 U/L (12-78); Alkaline Phosphatase 277 U/L (38-126); Anion Gap 4.9 mEq/L (5-15); Aspartate Amino Transferase 320 U/L (14-36); Bilirubin,Total 1.2 mg/dl (0.2-1.3); Blood Urea Nitrogen 12 mg/dl (7-17); Carbon Dioxide 26 mmol/L (22.0-30.0); Creatinine Clearance Estimated 73 mL/min (50-200); Creatinine,Serum 0.60 mg/dl (0.52-1.04); Estimated Glomerular Filt Rate 101 ml/min (>60); GFR (African American) 122 ML/MIN (>60)
[2024-12-11 00:39] LABS: Albumin/Globulin Ratio 1.2 (1.1-1.8); Calcium 7.8 mg/dl (8.4-10.2); Globulin 2.5 g/dL (1.3-3.2); Glucose 107 mg/dl (74-100); Magnesium 1.5 mg/dl (1.6-2.3); Total Protein,Serum 5.6 g/dl (6.3-8.2)
[2024-12-11] MEDS: DEXAMETHASONE 1MG/1ML INTENSOL 10ML UDC (ER) 10 MG PO (01:06)
[2024-12-11 01:09] LABS: Troponin I 0.01 ng/ml (0.00-0.034)
[2024-12-11] MEDS: CEFTRIAXONE 1 GM 1 GM in 0.9 % SODIUM CHLORIDE 50 ML IV (01:14)
--- NOTE | 2024-12-11 01:51 | PC.NURSE ---
Patient arrived to[facility] via wheelchair from ED at 01:47.
[2024-12-11 01:54] VITALS: BP 150/64; PULSE 85; RESP 16; TEMP 36.8; O2SAT 99
[2024-12-11 01:55] VITALS: BP 128/60; PULSE 70; RESP 16; O2SAT 96; BMI 30.3
[2024-12-11] MEDS: 0.9 % SODIUM CHLORIDE 1000ML 1,000 ML 50 ML IV (01:55)
[2024-12-11 02:14] LABS: Microscopic, Urine URINE MICROSCOPIC (MICROSCOPIC)
[2024-12-11 02:20] LABS: Bilirubin,Urine Negative (Negative); Color,Urine YELLOW (Yellow); Glucose,Urine (UA) Negative (Negative); Ketones,Urine Negative (Negative); Leukocyte Esterase,Urine Negative (Negative); PH,Urine 6.0 (5.0-8.5); Protein,Urine Negative (Negative); Specific Gravity, Urine 1.020 (1.005-1.030); Urobilinogen,Urine 4.0 EU/dl (0.2)
[2024-12-11 02:44] LABS: Squamous Epithelial Cell,Urine Occasional #/hpf (0-5); WBC,Urine Occasional #/hpf (0-3)
--- NOTE | 2024-12-11 03:00 | PC.NURSE ---
Pt refused troponin
[2024-12-11 04:00] VITALS: BP 132/55; PULSE 71; RESP 18; TEMP 36.9; O2SAT 94; BMI 30.3
[2024-12-11] MEDS: KETOROLAC 30MG/ML VIAL 15 MG IV (05:00)
[2024-12-11 07:51] VITALS: BP 117/57; PULSE 79; RESP 16; TEMP 36.6
--- NOTE | 2024-12-11 09:07 | P.PN_ITS ---
Subjective *Date: 12/11/24 *Time: 09:07 Interval history: Patient admitted overnight after 3 rd ER trip this week due to headache. She feels better this morning and would like to go home. Medical Exam Vital signs and Labs for Last 24 Hours: Vital Signs Temp Pulse Pulse Resp BP BP Pulse Ox 12/11/24 07:51 97.9 F 79 16 117/57 L 12/11/24 06:46 12/11/24 04:48 12/11/24 04:00 98.5 F 71 18 132/55 L 94 L 12/11/24 03:00 12/11/24 01:55 70 16 128/60 96 12/11/24 01:54 98.2 F 85 16 150/64 H 12/11/24 01:06 12/10/24 21:25 98.2 F 84 17 147/66 H 97 O2 Del Method 12/11/24 07:51 12/11/24 06:46 Room Air 12/11/24 04:48 Room Air 12/11/24 04:00 Room Air 12/11/24 03:00 Room Air 12/11/24 01:55 Room Air 12/11/24 01:54 Room Air 12/11/24 01:06 Room Air 12/10/24 21:25 Room Air Intake and Output 12/10/24 12/11/24 12/11/24 23:59 07:59 15:59 Intake Total 400 / 400 Balance 400 / 400 Intake: Intake, Oral Amount 400 / 400 Other: Weight 180 lb 199 lb 15.983 oz Patient Weight 12/11/24 23:59 Weight 199 lb 15.983 oz Laboratory Results - last 24 hr 12/10/24 00:12: Chlamy pneumoniae PCR Not detected, Adenovirus (PCR) Not detected, B. pertussis DNA (PCR) Not detected, Coronavirus OC43 (PCR) Not detected, Coronavirus HKU1 (PCR) Not detected, Coronavirus 229E (PCR) Not detected, SARS-CoV-2 (PCR) Not detected, Coronavirus NL63 (PCR) Not detected, Human Metapneumovir PCR Not detected, Influenza A (H1) PCR Not detected, Influ A (H1N1/09) PCR Not detected, Influenza A (H3) PCR Not detected, Influenza Type A (PCR) Not detected, Influenza Type B (PCR) Not detected, M. pneumoniae (PCR) Not detected, Parainfluenza 1 (PCR) Not detected, Parainfluenza 2 (PCR) Not detected, Parainfluenza 3 (PCR) Not detected, Parainfluenza 4 (PCR) Not detected, RSV (PCR) Not detected, Entero/Rhino (PCR) Not detected 12/11/24 00:20: WBC 3.2 L D, RBC 3.59 L, Hgb 10.5 L, Hct 31.8 L, MCV 88.6, MCH 29.2, MCHC 33.0, RDW 13.0, Plt Count 123 L, MPV 11.7 H, Neut % (Auto) 63.8, Lymph % (Auto) 25.2, [place] % (Auto) 10.1 H, Eos % (Auto) 0.0 L, Baso % (Auto) 0.3, Neut # (Auto) 2.0, Lymph # (Auto) 0.8, [place] # (Auto) 0.3, Eos # (Auto) 0.0, Baso # (Auto) 0.0, Sodium 134 L, Potassium 3.9, Chloride 107, Carbon Dioxide 26, Anion Gap 4.9 L, BUN 12, Creatinine 0.60, Estimated Creat Clear 73, Estimated GFR 101, Est GFR ( Amer) 122, Glucose 107 H, Calcium 7.8 L, Magnesium 1.5 L D, Total Bilirubin 1.2, AST 320 H* D, ALT 269 H D, Alkaline Phosphatase 277 H, Troponin I 0.01, Total Protein 5.6 L, Albumin 3.1 L, Globulin 2.5, Albumin /Globulin Ratio 1.2 12/11/24 02:09: Urine Color Yellow, Urine Appearance Clear, Urine pH 6.0, Ur Specific [place] 1.020, Urine Protein Negative, Urine Glucose (UA) Negative, Uri ne Ketones Negative, Urine Blood Negative, Urine Nitrate Negative, Urine Bilirubin Negative, Urine Urobilinogen 4.0, Ur Leukocyte Esterase Negative, Urine RBC None, Urine WBC Occasional, Ur Squamous Epith Cells Occasional, Urine Bacteria None I & O for Labs for Last 24 Hours: Intake & Output 12/08/24 12/09/24 12/10/24 12/11/24 23:59 23:59 23:59 23:59 Intake Total 400 / 400 Balance 400 / 400 Weight 180 lb 199 lb 15.983 oz Constitutional: Present no acute distress Respiratory: Present normal respiratory effort Cardiac: Present Reg Rate and Rhythm Extremities: Present normal inspection and full ROM Skin: Present intact; Absent erythema Neuro: Present Grossly Intact and moves all extremities Assessment and Plan *Assessment and plan (1) Headache: Status: Acute Category: Medical Code(s): R51.9 - Headache, unspecified (2) Elevated liver enzymes: Status: Acute Category: Medical Code(s): R74.8 - Abnormal levels of other serum enzymes (3) Nausea: Status: Acute Category: Medical Code(s): R11.0 - Nausea (4) Transaminitis: Status: Acute Category: Medical Code(s): R74.01 - Elevation of levels of liver transaminase levels (5) Leukopenia: Status: Acute Qualifiers: Leukopenia type: lymphocytopenia Qualified Code(s): D72.810 - Lymphocyt openia Category: Medical Code(s): D72.819 - Decreased white blood cell count, unspecified (6) Hypomagnesemia: Status: Acute Category: Medical Code(s): E83.42 - Hypomagnesemia Plan Recheck labs this morning, possible discharge later today with close outpatient f/u.
[2024-12-11 09:49] LABS: Hematocrit 33.6 % (37.0-47.0); Hemoglobin 10.9 g/dL (12.2-16.2); Immature Granulocytes % 0.6 %; Mean Corpuscular HGB Conc 32.4 g/dL (31.8-35.4); Mean Corpuscular Hemoglobin 29.2 pg (27.0-31.2); Mean Corpuscular Volume 90.1 fl (81-99); Nucleated Red Blood Cells % 0 %; Platelet Count 128 K/mm3 (142-424); Red Blood Count 3.73 M/mm3 (4.20-5.40); Red Cell Distribution Width-SD 43.2 fL; White Blood Count 3.2 K/mm3 (4.8-10.8)
[2024-12-11 10:06] LABS: Alanine Aminotransferase 305 U/L (12-78); Albumin Level 3.5 g/dl (3.5-5.0); Albumin/Globulin Ratio 1.5 (1.1-1.8); Alkaline Phosphatase 261 U/L (38-126); Anion Gap 11.0 mEq/L (5-15); Aspartate Amino Transferase 310 U/L (14-36); Bilirubin,Total 0.7 mg/dl (0.2-1.3); Blood Urea Nitrogen 13 mg/dl (7-17); Calcium 8.6 mg/dl (8.4-10.2); Carbon Dioxide 24 mmol/L (22.0-30.0); Chloride 106 mmol/L (98-107); Creatinine Clearance Estimated 81 mL/min (50-200); Creatinine,Serum 0.80 mg/dl (0.52-1.04); Estimated Glomerular Filt Rate 72 ml/min (>60); GFR (African American) 87 ML/MIN (>60); Globulin 2.3 g/dL (1.3-3.2); Glucose 239 mg/dl (74-100); Magnesium 2.3 mg/dl (1.6-2.3); Potassium 4.0 mmoL/L (3.5-5.1); Sodium 137 mmol/L (136-145); Total Protein,Serum 5.8 g/dl (6.3-8.2)
[2024-12-11 12:00] VITALS: BP 119/55; PULSE 74; RESP 16; TEMP 36.8; O2SAT 95
--- NOTE | 2024-12-11 12:02 | EXP.HPDC ---
General Admission date:: 12/11/24 Discharge date: 12/11/24 *Admission Date: 12/11/24 *Chief complaint: Headache *History of present illness: Mrs. Peña is a 64 year old patient of [facility] who usually sees Dr. Robbins for her primary care. She is typically very healthy but has been to the ER three times this week with various complaints of fever, headache, fatigue and nausea. She is unsure why she feels so bad. She remembers having a tick bite last week. She has not felt hungry most of the week and has had nausea, but no vomiting. She was diagnosed with pneumonia earlier in the week and given doxycycline. Yesterday her headaches intensified and she came back tot he ER and was given multiple treatments for migraine headaches and eventually got some relief. She is anxious to go home. [facility] Disclaimer: The information contained in this section may have been updated after the patient was seen, as this information can be updated by other users. Medical History (Updated 12/11/24 @ 12:06 by Berny Reynoso MD) Hyperlipemia Abnormal mammogram of left breast Mixed stress and urge urinary incontinence Surgical History History of tubal ligation History of total abdominal hysterectomy Family History Heart disease Social History Smoking Status: Never smoker second hand exposure: No alcohol intake: never substance use type: denies use current occupational status: employed and retired Travel in the last 8 weeks?: None household members: spouse housing: house current occupational exposures/hazards: No caffeine: Yes Have you lived/traveled outside US in past 30 days?: No Contact w/someone who lives/traveled outside US past 30 days?: No Exposure to someone with infectious disease in past 14 days?: No Do you have a fever (greater than 100.4 F or 38 C)?: No Have you tested positive for COVID-19?: No Exposed to someone with COVID-19 in past 14 days?: No Do you have a sore throat?: No Do you have a cough?: No Do you have any weakness?: No Do you have any diarrhea?: No Are you experiencing any unusual bleeding?: No Do you have any muscle aches/pain?: No Do you have any abdominal pain?: No Are you experiencing loss of taste or smell?: No Other Medical History Have you received the Flu Vaccine for this season: No Have you received the Pneumonia Vaccine: No Review of Systems Constitutional Constitutional: Reports chills and Reports fever(s) ENT Ears, Nose, Mouth, and Throat: Denies dizziness *Cardiovascular Cardiovascular: Denies chest pain *Respiratory Respiratory: Denies cough *Gastrointestinal Gastrointestinal: Reports abdominal pain, Denies vomiting and Reports other (nausea) *Genitourinary Genitourinary: Denies difficulty voiding *Musculoskeletal Musculoskeletal: Denies arthralgias Integumentary/Breasts Skin/Breast: Denies rash *Neurologic Neurologic: Denies dizziness Exam Data for Last 24 hours Vital signs and Labs for Last 24 Hours: Temp Pulse Resp BP Pulse Ox O2 Del Method 97.9 F 79 16 117/57 L 94 L Room Air 12/11/24 07:51 12/11/24 07:51 12/11/24 07:51 12/11/24 07:51 12/11/24 04:00 12/11/24 06:46 Laboratory Results - last 24 hr 12/10/24 00:12: Chlamy pneumoniae PCR Not detected, Adenovirus (PCR) Not detected, B. pertussis DNA (PCR) Not detected, Coronavirus OC43 (PCR) Not detected, Coronavirus HKU1 (PCR) Not detected, Coronavirus 229E (PCR) Not detected, SARS-CoV-2 (PCR) Not detected, Coronavirus NL63 (PCR) Not detected, Human Metapneumovir PCR Not detected, Influenza A (H1) PCR Not detected, Influ A (H1N1/09) PCR Not detected, Influenza A (H3) PCR Not detected, Influenza Type A (PCR) Not detected, Influenza Type B (PCR) Not detected, M. pneumoniae (PCR) Not detected, Parainfluenza 1 (PCR) Not detected, Parainfluenza 2 (PCR) Not detected, Parainfluenza 3 (PCR) Not detected, Parainfluenza 4 (PCR) Not detected, RSV (PCR) Not detected, Entero/Rhino (PCR) Not detected 12/11/24 00:20: WBC 3.2 L D, RBC 3.59 L, Hgb 10.5 L, Hct 31.8 L, MCV 88.6, MCH 29.2, MCHC 33.0, RDW 13.0, Plt Count 123 L, MPV 11.7 H, Neut % (Auto) 63.8, Lymph % (Auto) 25.2, [place] % (Auto) 10.1 H, Eos % (Auto) 0.0 L, Baso % (Auto) 0.3, Neut # (Auto) 2.0, Lymph # (Auto) 0.8, [place] # (Auto) 0.3, Eos # (Auto) 0.0, Baso # (Auto) 0.0, Sodium 134 L, Potassium 3.9, Chloride 107, Carbon Dioxide 26, Anion Gap 4.9 L, BUN 12, Creatinine 0.60, Estimated Creat Clear 73, Estimated GFR 101, Est GFR ( Amer) 122, Glucose 107 H, Calcium 7.8 L, Magnesium 1.5 L D, Total Bilirubin 1.2, AST 320 H* D, ALT 269 H D, Alkaline Phosphatase 277 H, Troponin I 0.01, Total Protein 5.6 L, Albumin 3.1 L, Globulin 2.5, Albumin/Globulin Ratio 1.2 12/11/24 02:09: Urine Color Yellow, Urine Appearance Clear, Urine pH 6.0, Ur Specific [place] 1.020, Urine Protein Negative, Urine Glucose (UA) Negative, Urine Ketones Negative, Urine Blood Negative, Urine Nitrate Negative, Urine Bilirubin Negative, Urine Urobilinogen 4.0, Ur Leukocyte Esterase Negative, Urine RBC None, Urine WBC Occasional, Ur Squamous Epith Cells Occasional, Urine Bacteria None 12/11/24 09:30: WBC 3.2 L, RBC 3.73 L, Hgb 10.9 L, Hct 33.6 L, MCV 90.1, MCH 29.2, MCHC 32.4, RDW 13.2, Plt Count 128 L, MPV 11.6 H, Neut % (Auto) 71.8, Lymph % (Auto) 14.9, [place] % (Auto) 12.4 H, Eos % (Auto) 0.0 L, Baso % (Auto) 0.3, Neut # (Auto) 2.3, Lymph # (Auto) 0.5 L, [place] # (Auto) 0.4, Eos # (Auto) 0.0, Baso # (Auto) 0.0, Sodium 137, Potassium 4.0, Chloride 106, Carbon Dioxide 24, Anion Gap 11.0, BUN 13, Creatinine 0.80 D, Estimated Creat Clear 81, Estimated GFR 72, Est GFR ( Amer) 87 D, Glucose 239 H D, Calcium 8.6, Magnesium 2.3 D, Total Bilirubin 0.7, AST 310 H*, ALT 305 H*, Alkaline Phosphatase 261 H, Total Protein 5.8 L, Albumin 3.5 D, Globulin 2.3, Albumin/Globulin Ratio 1.5 I & O for Last 24 hours: Intake & Output 12/08/24 12/09/24 12/10/24 12/11/24 23:59 23:59 23:59 23:59 Intake Total 400 / 400 Output Total 0 / 0 Balance 400 / 400 Weight 180 lb 199 lb 15.983 oz Constitutional Constitutional: no acute distress *Routine HEENT Exam Head: Present normocephalic Eye: Present EOMI and PERRL ENT: Present mucous membranes moist *Routine Neck Exam Neck: Present supple; Absent lymphadenopathy *Routine Respiratory Exam Respiratory: Present CTA bilaterally *Routine Cardiovascular Exam Cardiovascular: Present RRR *Routine Abdominal Exam Abdominal: Present soft, normoactive bowel sounds and tenderness (RUQ) *Routine Rectal Exam Rectal:: deferred *Routine Genitalia Exam Genitalia:: deferred *Routine Extremities Exam Extremities: Absent cyanosis, clubbing or edema *Routine Skin Exam Skin: Present warm; Absent rash *Routine Neurological Exam Neurological: Present alert and oriented X3 Meds Home Medications and Allergies Home Medications ?Medication ?Instructions ?Recorded ?Confirmed ?Type simvastatin 40 mg tablet 40 mg PO DAILY Cholesterol 30 days 10/06/17 12/11/24 History dexamethasone 2 mg tablet 2 mg PO BID #10 tabs 12/11/24 Rx ondansetron HCl 4 mg tablet 4 mg PO Q8H 6 days #18 tabs 12/11/24 Rx New Prescriptions to Start Prescriptions: dexamethasone [place],Berny ondansetron HCl [place],Berny Allergies Allergy/AdvReac Type Severity Reaction Status Date / Time No Known Allergies Allergy Verified 03/12/23 10:27 Hospital Course Hospital Course Hospital Course: Patient was admitted to [facility] for observation and symptom control and to recheck labs. She declined a lumbar puncture. Her headache has resolved. Her liver function studies are still elevated. She was tolerating a full liquid diet. Plans made to continue symptomatic tgreatment as an outpatient and to check ROBBY U/S in 3 day and have office f/u in 5 days. Results Data Completed and Pending Labs on day of discharge: Labs from last 24 hours 12/11/24 12/11/24 12/11/24 09:30 02:09 00:20 WBC 3.2 L 3.2 L D RBC 3.73 L 3.59 L Hgb 10.9 L 10.5 L Hct 33.6 L 31.8 L MCV 90.1 88.6 MCH 29.2 29.2 MCHC 32.4 33.0 RDW 13.2 13.0 Plt Count 128 L 123 L MPV 11.6 H 11.7 H Neut % (Auto) 71.8 63.8 Lymph % (Auto) 14.9 25.2 [place] % (Auto) 12.4 H 10.1 H Eos % (Auto) 0.0 L 0.0 L Baso % (Auto) 0.3 0.3 Neut # (Auto) 2.3 2.0 Lymph # (Auto) 0.5 L 0.8 [place] # (Auto) 0.4 0.3 Eos # (Auto) 0.0 0.0 Baso # (Auto) 0.0 0.0 Sodium 137 134 L Potassium 4.0 3.9 Chloride 106 107 Carbon Dioxide 24 26 Anion Gap 11.0 4.9 L BUN 13 12 Creatinine 0.80 D 0.60 Estimated Creat Clear 81 73 Estimated GFR 72 101 Est GFR ( Amer) 87 D 122 Glucose 239 H D 107 H Calcium 8.6 7.8 L Magnesium 2.3 D 1.5 L D Total Bilirubin 0.7 1.2 AST 310 H* 320 H* D ALT 305 H* 269 H D Alkaline Phosphatase 261 H 277 H Troponin I 0.01 Total Protein 5.8 L 5.6 L Albumin 3.5 D 3.1 L Globulin 2.3 2.5 Albumin/Globulin Ratio 1.5 1.2 Urine Color Yellow Urine Appearance Clear Urine pH 6.0 Ur Specific [place] 1.020 Urine Protein Negative Urine Glucose (UA) Negative Urine Ketones Negative Urine Blood Negative Urine Nitrate Negative Urine Bilirubin Negative Urine Urobilinogen 4.0 Ur Leukocyte Esterase Negative Urine RBC None Urine WBC Occasional Ur Squamous Epith Cells Occasional Urine Bacteria None Chlamy pneumoniae PCR Adenovirus (PCR) B. pertussis DNA (PCR) Coronavirus OC43 (PCR) Coronavirus HKU1 (PCR) Coronavirus 229E (PCR) SARS-CoV-2 (PCR) Coronavirus NL63 (PCR) Human Metapneumovir PCR Influenza A (H1) PCR Influ A (H1N1) PCR Influenza A (H3) PCR Influenza Type A (PCR) Influenza Type B (PCR) M. pneumoniae (PCR) Parainfluenza 1 (PCR) Parainfluenza 2 (PCR) Parainfluenza 3 (PCR) Parainfluenza 4 (PCR) RSV (PCR) Entero/Rhino (PCR) 12/10/24 00:12 WBC RBC Hgb Hct MCV MCH MCHC RDW Plt Count MPV Neut % (Auto) Lymph % (Auto) [place] % (Auto) Eos % (Auto) Baso % (Auto) Neut # (Auto) Lymph # (Auto) [place] # (Auto) Eos # (Auto) Baso # (Auto) Sodium Potassium Chloride Carbon Dioxide Anion Gap BUN Creatinine Estimated Creat Clear Estimated GFR Est GFR ( Amer) Glucose Calcium Magnesium Total Bilirubin AST ALT Alkaline Phosphatase Troponin I Total Protein Albumin Globulin Albumin/Globulin Ratio Urine Color Urine Appearance Urine pH Ur Specific [place] Urine Protein Urine Glucose (UA) Urine Ketones Urine Blood Urine Nitrate Urine Bilirubin Urine Urobilinogen Ur Leukocyte Esterase Urine RBC Urine WBC Ur Squamous Epith Cells Urine Bacteria Chlamy pneumoniae PCR Not detected Adenovirus (PCR) Not detected B. pertussis DNA (PCR) Not detected Coronavirus OC43 (PCR) Not detected Coronavirus HKU1 (PCR) Not detected Coronavirus 229E (PCR) Not detected SARS-CoV-2 (PCR) Not detected Coronavirus NL63 (PCR) Not detected Human Metapneumovir PCR Not detected Influenza A (H1) PCR Not detected Influ A (H1N1) PCR Not detected Influenza A (H3) PCR Not detected Influenza Type A (PCR) Not detected Influenza Type B (PCR) Not detected M. pneumoniae (PCR) Not detected Parainfluenza 1 (PCR) Not detected Parainfluenza 2 (PCR) Not detected Parainfluenza 3 (PCR) Not detected Parainfluenza 4 (PCR) Not detected RSV (PCR) Not detected Entero/Rhino (PCR) Not detected DS: Diagnosis Discharge Diagnosis (1) Headache: Status: Acute Code(s): R51.9 - Headache, unspecified (2) Elevated liver enzymes: Status: Acute Code(s): R74.8 - Abnormal levels of other serum enzymes (3) Nausea: Status: Acute Code(s): R11.0 - Nausea (4) Transaminitis: Status: Acute Code(s): R74.01 - Elevation of levels of liver transaminase levels (5) Leukopenia: Status: Acute Code(s): D72.819 - Decreased white blood cell count, unspecified Qualifiers: Leukopenia type: lymphocytopenia Qualified Code(s): D72.810 - Lymphocytopenia (6) Hypomagnesemia: Status: Acute Code(s): E83.42 - Hypomagnesemia Discharge Plan Disposition Patient Disposition: Home, Self-Care Condition: Good Follow up Plan Follow up with: Berny Reynoso MD [Staff Physician, Medical] - 12/16/24 Referral Note: CAll for time Gallbladder Ultrasound scheduled 12/14 at 9:00 Prescriptions/Medication Reconciliation: New dexamethasone 2 mg tablet 2 mg PO BID Qty: 10 0RF ondansetron HCl 4 mg tablet 4 mg PO Q8H 6 Days Qty: 18 0RF Continued simvastatin 40 mg tablet 40 mg PO DAILY 30 Days Problem Reconciliation Problems Reviewed?: Yes Patient Discharge Instructions ACTIVITY: Limited activity DIET: continue same diet Additional Instructions: Patient to have RUQ Ultrasound on 12/14/24 Patient Instructions: DI for Fatigue, DI for Headache Print Language: Ukrainian Providers Primary Care Provider: Morris Robbins Admit Provider: Berny Reynoso Attending Provider: Berny Reynoso
[2024-12-11] MEDS: DOXYCYCLINE HYCL 100 MG TABLET PO (12:08)
[2024-12-11 12:21] LABS: RBC Morphology Normal; Total Cells Counted 100
--- NOTE | 2024-12-13 11:57 | SW/DCPLANNER ---
Spoke with patient on the phone. patient stated that she is doing good. Patient stated that she is aware of her upcoming appointment. Patient stated that she was able to get her new medicine picked up from clinic pharmacy. patient stated that she has no concerns or questions at this time. Navarro Gonzalez
== END 2024-12-11 12:39 | disposition home or self-care (01) ==
LOC: ER 12-11 00:59 → 2ND 12-11 01:12
PROVIDERS: Admitting Provider Family Medicine; Emergency Provider Student in an Organized Health Care Education/Training Program; PCP Family Medicine; Visit Provider Family Medicine
DX: R51.9 Headache, unspecified (principal); R11.0 Nausea; R74.01 Elevation of levels of liver transaminase levels; D72.810 Lymphocytopenia; E83.42 Hypomagnesemia; E78.5 Hyperlipidemia, unspecified; R06.02 Shortness of breath; Z79.899 Other long term (current) drug therapy; N39.0 Urinary tract infection, site not specified; M79.10 Myalgia, unspecified site; R53.1 Weakness
CPT/HCPCS: 96361; 96365; 96375 ×2; 0223U; 36415; 70450; 71045; 80053; 81001; 83735; 84484; 85007; 85025; 85027; 87086; 87633; 93005; G0378; J0696; J1200; J1790; J1885; J3475; J7030

== ENCOUNTER 2024-12-13 09:56 | Outpatient (CLI) | payer BC, SELFPAY ==
--- OUTSIDE RECORDS SUMMARY | 2022-12-04 08:50 | XMS_ITS | Continuity of Care Document ---
Author Organization [facility] Address [address] [place] [address] Phone Care Team Providers Care Service Station Equipment Mechanic Name Role Phone Rahul Coelho MD Unavailable Unavailable Allergies, Adverse Reactions, Alerts Substance Reaction Status Criticality No Known Allergies Active No Inform ation Medications Medication Instructions Dosage Effective Dates (start - stop) Status Comments Besivance 0.6 % eye drops,suspension Instill 1 drop by ophthalmic route TID into operative eye the day before and 1 drop the morning of surgery. Continue TID for 1 week. - Active Subsutution: Vigamox (moxi) 0.5% 3ml-Instill 1 drop by ophthalmic route TID into operative eye 1 day before surgery and 1 drop the morning of surgery. Continue for TID for 1 weeK Inveltys 1 % eye drops,suspension instill 1 drop by ophthalmic route in the surgery eye 3 times daily AFTER surgery and Taper as directed - Active Substitute: 1. Lotemax SM-0.38% (If copay is more than $60, please apply coupon card) 2.Prednisolone Acetate 1%. (1&2dispensed same as above)Both-1 drop TID after surgery, taper as directed Prolensa 0.07 % eye drops Instill 1 [...] morning of. Taper directed for 4 weeks simvastatin 10 mg tablet take 1 tablet [...] Diagnoses Date Provider Providers Copied on Encounter [facility] Physician s, [address] [facility], [place], [address], [place] tel: [phone] [facility] Jim Teague No Information 3 Laquita Kay. [address], [place], [place], [id number] , [place]. [phone] OFFICE/OUTPA TIENT VISIT, [facility] Physician simone, [address] [facility] [place], [address], [place] tel:[phone] [facility] [address] cataract (chief complaint) Cataract - Nuclear sclerosis, both eyesMGD - upper and lower lids, right eyeMGD - upper and lower lids, left eyeret - early dry ARMD, bilateralDry Eye - Keratoconjunctivitis sicca, non-Sjogren's, bilateral 3 Laquita Kay. [address], [place], [place], [id number] , [place]. [phone] Referring Provider: Rahul Hunter, [address] , [place], [address] . tel:[phone] Family History Family Member Type Diagnosis Age At Onset Mother Problem (finding) Macular degeneration Father Problem cataract Mother Problem (finding) Stroke Father Problem hypertension Problem No family history of Cancer, unknown Mother Problem Retinal disease Mother Problem cataract Father Problem (finding) Cardiovascular disease Problem No family history of Glaucom a Father Problem Diabetes mellitus Payers Payer name Insurance type Covered constitution party ID Authoriza tion(s) Self Pay 09 [...] interested in LASIK and was told in [place] that she could get LASIK and cataracts [...]
--- OUTSIDE RECORDS SUMMARY | 2024-08-02 07:30 | XMS_ITS ---
Author Organization [facility] Address [address] [facility] [place] [id number] Care Team Providers Care Industrial Controls Technician Name Role Phone Berny Reynoso Primary Care Provider Cheryle Brownlee Unavailable [phone] Allergies No Known Allergies REASON FOR VISIT [...] AT BEDTIME; Duration: 90 Active Vital Signs Weight 193.2 lbs 08/02/2024 Blood pressure systolic 128 mm Hg 08/03/19 25 Blood pressure diastolic 70 mm Hg 025 Heart Rate 84 /min 08/02/2024 Height 68 in 08/02/2024 BMI 29.37 kg/m2 08/02/2024 Encounters Encounter Location Date Provider Diagnosis [facility] [address] [place], [place] [id number] 08/02/2024 Cheryle Brownlee Weight gain R63.5 an [...] weeks after sta rting med, Reason: Provider Name:Berny Crowder ry, 12/14/2024 10:30:00 AM, [address] [facility], [address], [place], [place], [id number], Progress Notes * JESSICA BONILLADOB:1960 (64 yo F)Acc No.[id number]:08/02/2024 Progress Notes Patient: CALVIN RAMANMY Provider: CRISTA Johnson :1960 A ge:63 Y S ex:Female Date:08/02/2024 Address:[address] [place], [place] [address] Pcp:Berny Reynoso Subjective: * Chief Complaints: * [...] * Images: Billing Information: * Visit Code: 24397 Office Visit, Est Pt., Level 4. * Procedure Codes: 3074F SYST BP LT 130 MM HG. 3078F DIAST BP < 80 MM HG. * Electronic signature of Kiki Brownlee APRN on 12/13/2024 at 10:01 AM EDT Sign off status: Pending * Provider: CRISTA Johnson Date: 0 08/02/2024 Generated for Hoda norman/Lisset/Constanza on: 0 12/13/2024 10:01 AM EDT History and Physical Notes * [...]
--- OUTSIDE RECORDS SUMMARY | 2024-12-08 11:35 | XMS_ITS ---
Author Organization [facility] Address [facility] 36 [facility] [address] [place], [place] [id number] Care Team Providers Care Chart Computer Name Role Phone Berny Reynoso Primary Care Provider [phone] Rylie Reagan Unavailable [phone] Allergies No Known Allergies REASON FOR VISIT not feeling well Encounters Encounter Location Date Provider Diagnosis [facility] [address] [place], [place] [id number] 12/08/2024 Rylie Mclean Plan Of Treatment Next Appt Details Provider Name:Berny Crowder ry, 12/14/2024 10:30:00 AM, [address], [place], [place], [id number], Progress Notes * JESSICA BONILLADOB:1960 (64 yo F)Acc No.[id number]:12/08/2024 Progress Notes Patient: JESSICA RAMAN Provider: GOKUL Horowitz :1960 A ge:64 Y S ex:Female Date:12/08/2024 Address:[address] [place] [address] [address], [place], [place] Pcp:Berny Reynoso Subjective: * Chief Complaints: * [...] * Electronic signature of GOKUL Combs on 12/13/2024 at 10:01 AM EDT Sign off status: Pending * Provider: GOKUL Horowitz Date: 12/08/2024 Generated for Hoda norman/Lisset/Moniqueitting on: 12/13/2024 10:01 AM EDT
--- OUTSIDE RECORDS SUMMARY | 2024-12-13 04:14 | XMS_ITS ---
Author Organization [facility] Address [address] [facility] [address] [facility] [address] [place] [id number] Care Team Providers Care Motion Picture Critic Name Role Phone Berny Reynoso Primary Care Provider REASON FOR VISIT Message Encounters Encounter Location Date Provider Diagnosis [facility] [address] [facility] [address] [facility] [address] [place] [id number] 12/13/2024 Berny Reynoso Decreased white bloo d cell count, unspecified D72.819 and Elevation of levels of liver transaminase levels R74.01 Assessments Encounter Date Diagnosis (ICD Code) Assessment Notes Treatment Notes Treatment Clinical Notes Section Notes 12/13/2024 Decreased white blood cell count, unspecified (ICD-10 - D72.819) 12/13/2024 Elevation of levels of liver transaminase levels (ICD-10 - R74.01) Plan Of Treatment Pending Test Test Name Order Date H-CBC 12/13/2024 H-CMP 12/13/2024 Next Appt Details Provider Name:Berny Crowder ry, 12/14/2024 10:30:00 AM, [address] [facility] [address] [facility], [address], [place], [phone], Progress Notes * IRENE CALVINMURPHYDOB:1960 (64 yo F)Acc No.[id number]:12/13/2024 Patient: Jami JESSICA YOO :1960 A ge:64 Y S ex:Female Address:[address] [place] [address] [address], [place], [place] [address] Subjective: * Chief Complaints: * M essage * Medical History: * Surgical History: * Hospitalization/Major Diagno stic Procedure: * Medications: Objective: * Vitals: * Physical Examination: Assessment: * Assessment: 1. D ecreased white blood cell count, unspecified - D72.819 2 . E levation of levels of liver transaminase levels - R74.01 Plan: * Treatment: 2. E levation of levels of liver transaminase levels L AB: H-CMP * Procedure Codes: * true * Date: Generated for Hoda norman/Lisset/eTkarinsmitting on: 0 12/13/2024 10:01 AM EDT
--- NOTE | 2024-12-13 10:00 | US_ITS ---
FINAL REPORT TECHNIQUE: Multiple transverse and longitudinal images CLINICAL HISTORY: OTHER SPECIFIED DISEASE OF GALLBLADDER FINDINGS: Borderline gallbladder wall thickening is noted. There is no evidence of stone disease. No biliary ductal dilatation is appreciated. No fluid collections are seen. Limited portions of the right liver are unremarkable. Limited portions of the right kidney are unremarkable. Pancreas is largely obscured. IMPRESSION: Nonspecific mild gallbladder wall thickening without evidence of biliary obstruction. Reviewed, Interpreted and Dictated by Jane Green MD Transcribed by Roxi Holden Authenticated and . [facility]
--- OUTSIDE RECORDS SUMMARY | 2024-12-13 10:00 | XMS_ITS | Patient Health Record ---
Author Organization [facility] Address [address] [facility] [address] [id number] Care Team Providers Care Correction Warden Name Role Phone Berny Reynoso Primary Care Provider Cheryle Brownlee Unavailable [phone] Rylie Mclean Unavailable [phone] Allergies No Known Allergies Results Component Value [...] 01/30/2022 Administered xFlu shot- 6months-36 months of irf-QOAK-PLKU-trivalent Unknown 03/22/2016 Administered xFlu shot-36 months and older IM Intramuscular 04/30/2005 Administered xFlu shot-36 months and older Unknown 03/22/2016 Administered Problems Problem Type SNOMED Code ICD Code Onset Dates Problem Status W/U Status Risk Notes Problem Hyperlipidemia (32741256) Hyperlipidemia (272.4) Active confirmed Problem Insomnia (232060524) Insomnia (G47.00) Active c onfirmed Problem Hyperlipidemia (78834708) Hyperlipidemia (E78.5) Active confirmed Problem Paresthesia (59434174) Paresthesia (R20.2) Active confirmed Problem Flank pain (878431803) Flank pain (R10.9) Active confirmed Problem Leukopenia (07715567) Decreased white blood cell count, unspecified (D72.819) Active confirmed Problem Polyarthritis (175221053) Polyarthritis (M13.0) Active confirmed Problem Pure hypercholesterolemia (790098045) Pure hypercholesterolemia (E78.00) Active confirmed Problem Urge incontinence of urine (48655872) Urge incontinence of urine (N39.41) Active confirmed Problem Gastroesophageal reflux disease (524310229) Gastroesophageal reflux disease, unspecified whether esophagitis present (K21.9) Active confirmed Vital Signs Heart Rate 84 /min 08/02/2024 Blood pressure diastolic 70 mm Hg 08/02/2024 Height 68 in 08/02/2024 Blood pressure systolic 128 mm Hg 08/02/2024 Weight 193.2 lbs 08/02/2024 BMI 29.37 kg/m2 08/02/2024 Encounters Encounter Location Date Provider Diagnosis [facility] [address] [place] [id number] 01/06/2024 Cheryle Brownlee Weight loss R63.4 ; Tick bite W57.XXXA and Hyperlipidemia E78.5 [facility] [address] [place] [id number] 01/08/2024 Cheryle Brownlee Hyperlipidemia E78.5 and Weight loss R63.4 [facility] [address] [place], [place] [id number] 05/05/2024 Rylie Mclean Acute URI J06.9 [facility] [address] [place], [place] [id number] 08/02/2024 Cheryle Brownlee Weight gain R63.5 an d Weight loss counseling, encounter for Z71.3 [facility] [address] [place], [place] [id number] 01/07/2024 Cheryle Brownlee [facility] [address] [place], [place] [id number] 01/12/2024 Berny Hines [facility] [address] [place], [place] [id number] 01/13/2024 Berny Hines [facility] [address] [place] [id number] 08/03/2024 Cheryle Brownlee [facility] [address] [place], [place] [id number] 12/13/2024 Berny Hines Decreased white bloo d cell count, unspecified [...] relief, patient has cough medication at home 12/13/2024 Decreased white blood cell count, unspecified (ICD-10 - D72.819) 08/02/2024 Weight gain (ICD-10 - R63.5) will try Contrave while awaiting approval of Wegovy; discussed; healthy foods, MVI, portion sizes and exercise 08/02/2024 Weight loss counseling, encounter for (ICD-10 - Z71.3) discussed plan for weight loss 12/13/2024 Elevation of levels of liver transaminase levels (ICD-10 - R74.01) 01/08/2024 Hyperlipidemia (ICD-10 - E78.5) 01/06/2024 Hyperlipidemia (ICD-10 - E78.5) 01/08/2024 Weight loss (ICD-10 - R63.4) 01/06/2024 Other to RTC fasting for CMP, A1c TSH, and Lipids Plan Of Treatment Pending Test Test Name Order Date H-CBC 12/13/2024 H-CMP 12/13/2024 Ultrasound : Abdomen limited 12/13/2024 Next Appt Details Provider Name:Berny Crowder ry, 12/14/2024 10:30:00 AM, [address], [place], [place], [id number], Insurance Providers Payer Name Payer Address Payer Phone Subscriber Number Group Number Insured Name Patient Relationship to Insured Coverage Start Date Coverage End Date [facility] [employer] [employer] [address] [place] [address] [id number] JESSICA BONILLA Self - patient is the [...] Date(Month/Year) hysterectomy abdominal Hospitalization History Reason Date(Month/Year) [facility] chest pains 06/06/13
--- OUTSIDE RECORDS SUMMARY | 2024-12-13 10:02 | XMS_ITS | Clinical Summary ---
Author Organization [facility] Address [address] [place] [address] Phone Care Team Providers Care Cross Cut Sawyer Name Role Phone Sanjiv Harris MD Primary Care Provider [phone] Allergies No known active allergies Medications simvastatin [...] EDT Impressions 10/24/2022 8:45 AM EDT Negative (HUJ-Ycvydsbz-1) ~ RECOMMENDATION: Routine screening mammogram in 1 [...] the next mammogram, in accordance with the [employer] and the Society of Breast Imaging recommendations. Narrative 10/24/2022 8:45 AM EDT Procedure:MM MAMMO DIGITAL DAMIEN SCREEN BILAT ~ Reason for exam: screening, asymptomatic. Z12.31-Encounter for screening mammogram for malignant neoplasm of saggsq-LQB-82-CM ~ MM MAMMO DIGITAL DAMIEN SCREEN BILAT [...] for screening mammogram for malignant neoplasm of qnlbxc-UUX-35-CM ~ MM MAMMO DIGITAL DAMIEN SCREEN BILAT Bilateral CC and MLO view(s) were taken. The breast tissue is heterogeneously dense. This may lower thesensitivity of mammography. Prior study comparison: Compared with prior studies the most recentbeing 08/02/16 No mammographic evidence of malignancy. ~ IMPRESSION: Negative (PSM-Bypvcyfn-4) ~ RECOMMENDATION: Routine screening mammogram in 1 [...] the next mammogram, in accordance with the [employer] and the Society of Breast Imaging recommendations. us Godfrey Duran MD IMG MAMMOGRAPHY ORDERABLES Fin al Result * HEPATITIS C ANTIBODY - SCREENING (12/25/2016 9:24 AM EDT) Hep C Ab Negative Negative [facility] Blood specimen (specimen) UPPER LIMB STRUCTURE / Unknown 12/25/2016 9:24 AM EDT 12/25/2016 4:20 PM EDT us Josie Rust MD HEMATOLOGY ORDERABLES Sayra l Result Performing Organization Address City/State/[facility] Co de Phone Number [facility] [address] [place] [address] from Last 3 Months or Most Recently Relevant to Health Maintenance Insurance Care Teams Cross Cut Sawyer Relationship Specialty Start Date End Date aSnjiv Harris MD [facility] [address] [facility] [place] [phone] PCP - General Family Medicine 12/05/17
--- OUTSIDE RECORDS SUMMARY | 2024-12-13 10:02 | XMS_ITS | Clinical Summary ---
Author Organization [facility] ystem Address [address] [place] [id number] Care Team Providers Care Internet Network Specialist Name Role Phone Unavailable Primary Care Provider [...]
[2024-12-13 11:52] LABS: Hematocrit 36.0 % (37.0-47.0); Hemoglobin 11.5 g/dL (12.2-16.2); Immature Granulocytes % 1.3 %; Mean Corpuscular HGB Conc 31.9 g/dL (31.8-35.4); Mean Corpuscular Hemoglobin 29.0 pg (27.0-31.2); Mean Corpuscular Volume 90.7 fl (81-99); Nucleated Red Blood Cells % 0 %; Platelet Count 245 K/mm3 (142-424); Red Blood Count 3.97 M/mm3 (4.20-5.40); Red Cell Distribution Width-SD 45.8 fL; White Blood Count 10.3 K/mm3 (4.8-10.8)
[2024-12-13 12:14] LABS: Alanine Aminotransferase 237 U/L (12-78); Albumin Level 4.2 g/dl (3.5-5.0); Albumin/Globulin Ratio 1.8 (1.1-1.8); Alkaline Phosphatase 273 U/L (38-126); Anion Gap 10.1 mEq/L (5-15); Aspartate Amino Transferase 105 U/L (14-36); Bilirubin,Total 0.8 mg/dl (0.2-1.3); Blood Urea Nitrogen 14 mg/dl (7-17); Calcium 9.4 mg/dl (8.4-10.2); Carbon Dioxide 28 mmol/L (22.0-30.0); Chloride 103 mmol/L (98-107); Creatinine,Serum 0.70 mg/dl (0.52-1.04); Estimated Glomerular Filt Rate 84 ml/min (>60); GFR (African American) 102 ML/MIN (>60); Globulin 2.3 g/dL (1.3-3.2); Glucose 95 mg/dl (74-100); Potassium 4.1 mmoL/L (3.5-5.1); Sodium 137 mmol/L (136-145); Total Protein,Serum 6.5 g/dl (6.3-8.2)
== END 2024-12-13 23:59 | disposition home or self-care (01) ==
PROVIDERS: PCP Family Medicine; Visit Provider Family Medicine
DX: R93.2 Abnormal findings on diagnostic imaging of liver and biliary tract (principal); D72.819 Decreased white blood cell count, unspecified; R74.01 Elevation of levels of liver transaminase levels
CPT/HCPCS: 36415; 76705; 80053; 85025

== ENCOUNTER 2024-12-16 07:28 | Outpatient (CLI) | payer BC, SELFPAY ==
--- OUTSIDE RECORDS SUMMARY | 2024-12-08 11:35 | XMS_ITS ---
Author Organization [facility] Address 1210 [facility] [address] [place] [id number] Care Team Providers Care Organ Recovery Coordinator Name Role Phone Berny Reynoso Primary Care Provider Rylie Mlcean Unavailable [phone] Allergies No Known Allergies REASON FOR VISIT not feeling well Encounters Encounter Location Date Provider Diagnosis [facility] [address] [place] [id number] 12/08/2024 Rylie Mclean Plan Of Treatment No Information Progress Notes * JESSICA BONILLADOB:1960 (64 yo F)Acc No.[id number]:12/08/2024 Progress Notes Patient: JESSICA RAMAN Provider: GOKUL Horowitz :1960 A ge:64 Y S ex:Female Date:12/08/2024 Address:[address] [place] [address] [address], [place], [id number] Pcp:Berny Reynoso Subjective: * Chief Complaints: * 1 . Not feeling well. * ROS: D ERMATOLOGY: no R sukhi. [...] * Electronic signature of GOKUL Combs on 12/16/2024 at 07:31 AM EDT Sign off status: Pending * Provider: GOKUL Horowitz Date: 12/08/2024 Generated for Hoda norman/Lisset/Constanza on: 12/16/2024 07:31 AM EDT
--- OUTSIDE RECORDS SUMMARY | 2024-12-13 04:14 | XMS_ITS ---
Author Organization [facility] Address [address] [facility] [address] [id number] Care Team Providers Care Head Of [employer] Name Role Phone Berny Reynoso Primary Care Provider Results Component Value Reference Range Notes H-CBC Reviewed date:12/13/2024 04:56:40 PM Interpretation: Performing Lab: Notes/Report: WBC 10.3 4.8-10.8 K/mm3 Delta: 3.2 on 12/11/24 RBC 3.97 4.20-5.40 M/mm3 HGB 11.5 12.2-16.2 g/dL HCT 36.0 37.0-47.0 % MCV 90.7 81-99 fl MCH 29.0 27.0-31.2 pg MCHC 31.9 31.8-35.4 g/dL RDW-SD 45.8 RDW 13.6 11.5-17.5 % PLT 245 142-424 K/mm3 Delta: 128 on 12/11/24 MPV 11.2 7.4-10.4 fl NE% 50.6 37.0-80.0 % LY% 41.7 10-50 % MO% 6.2 1.7-9.3 % EO% 0.0 0.1-12.0 % BA% 0.2 0.1-2.0 % NRBC% 0 IG% 1.3 NE# 5.2 1.8-7.8 K/mm3 LY# 4.3 0.7-4.5 K/mm3 MO# 0.6 0.1-1.0 K/mm3 EO# 0.0 0.0-0.4 Kmm3 BA# 0.0 0-0.2 K/mm3 NRBC# 0 IG# 0.13 H-CMP Reviewed date:12/13/2024 04:56:40 PM Interpretation:AST 105, ALT 237, ALP 273 Performing Lab: Notes/Report: NA 137 136-145 mmol/L K 4.1 3.5-5.1 mmoL/L CL 103 98-107 mmol/L CO2 28 22.0-30.0 mmol/L GAP 10.1 5-15 mEq/L BUN 14 7-17 mg/dl CREATT 0.70 0.52-1.04 mg/dl GFRAA 102 >60 ML/MIN EGFR 84 >60 ml/min GLU 95 74-100 mg/dl CA 9.4 8.4-10.2 mg/dl BILIT 0.8 0.2-1.3 mg/dl AST 105 14-36 U/L Delta: 310 on 0 12/11/24-929 ALT 237 12-78 U/L TP 6.5 6.3-8.2 g/dl ALB 4.2 3.5-5.0 g/dl GLOB 2.3 1.3-3.2 g/dL AGRATIO 1.8 1.1-1.8 ALP 273 38-126 U/L REASON FOR VISIT Message Encounters Encounter Location Date Provider Diagnosis [facility] [address] [facility] [address] [place], [place] [address] [phone] 12/13/2024 Berny Reynoso Decreased white bloo d cell count, unspecified D72.819 and Elevation of levels of liver transaminase levels R74.01 Assessments Encounter Date Diagnosis (ICD Code) Assessment Notes Treatment Notes Treatment Clinical Notes Section Notes 12/13/2024 Decreased white blood cell count, unspecified (ICD-10 - D72.819) 12/13/2024 Elevation of levels of liver transaminase levels (ICD-10 - R74.01) Plan Of Treatment No Information Progress Notes * EDEN BONILLA:1960 (64 yo F)Acc No.[id number]:12/13/2024 Patient: JESSICA RAMAN :1960 A ge:64 Y S ex:Female Address:[address] [place] [address] [address], [place] [address] Subjective: * Chief Complaints: * M essage * Medical History: * Surgical History: * Hospitalization/Major Diagno stic Procedure: * Medications: Objective: * Vitals: * Physical Examination: Assessment: * Assessment: 1. D ecreased white blood cell count, unspecified - D72.819 2 . E levation of levels of liver transaminase levels - R74.01 Plan: * Treatment: Value Reference Range W BC 10.3 U 4.8-10.8 - K/mm3 * R BC 3.97 L 4.20-5.40 - M/mm3 * H GB 11.5 L 12.2-16.2 - g/dL * H CT 36.0 L 37.0-47.0 - % * M CV 90.7 81-99 - fl * M CH 29.0 27.0-31.2 - pg * M CHC 31.9 31.8-35.4 - g/dL * R DW 13.6 11.5-17.5 - % * P LT 245 U 142-424 - K/mm3 * M PV 11.2 H 7.4-10.4 - fl * N E% 50.6 37.0-80.0 - % * L Y% 41.7 10-50 - % * M O% 6.2 1.7-9.3 - % * E O% 0.0 L 0.1-12.0 - % * B A% 0.2 0.1-2.0 - % * N E# 5.2 1.8-7.8 - K/mm3 * L Y# 4.3 0.7-4.5 - K/mm3 * M O# 0.6 0.1-1.0 - K/mm3 * E O# 0.0 0.0-0.4 - Kmm3 * B A# 0.0 0-0.2 - K/mm3 * R DW-SD 45.8 - fL * N RBC% 0 - % * N RBC# 0 - 10 3/uL * I G% 1.3 - % * I G# 0.13 - 10 3uL * Yandy Carson 12/13/2024 04: 56:04 PM EDT > See phone encounterThis lab was reviewed by Ynady Carson on 12/13/2024 at 16:56 PM EDT 2.?Elevation of levels of liver transaminase levels?LAB: H-CMP* Value Reference Range N A 137 136-145 - mmol/L * K 4.1 3.5-5.1 - mmoL/L * C L 103 98-107 - mmol/L * C O2 28 22.0-30.0 - mmol/L * G AP 10.1 5-15 - mEq/L * B UN 14 7-17 - mg/dl * C REATT 0.70 0.52-1.04 - mg/dl * G FRAA 102 >60 - ML/MIN * E GFR 84 >60 - ml/min * G CAROLYN 95 74-100 - mg/dl * C A 9.4 8.4-10.2 - mg/dl * B ILIT 0.8 0.2-1.3 - mg/dl * A ST 105 DH 14-36 - U/L * A LT 237 H 12-78 - U/L * T P 6.5 6.3-8.2 - g/dl * A LB 4.2 3.5-5.0 - g/dl * G LOB 2.3 1.3-3.2 - g/dL * A GRATIO 1.8 1.1-1.8 - * A LP 273 H 38-126 - U/L * Yandy Carson 12/13/2024 04: 56:04 PM EDT > See phone encounterThis lab was reviewed by Yandy Carson on 12/13/2024 at 16:56 PM EDT * Procedure Codes: * true * Date: Generated for Hoda norman/Lisset/eTkarinsmitting on: 0 12/16/2024 07:31 AM EDT
--- OUTSIDE RECORDS SUMMARY | 2024-12-14 06:30 | XMS_ITS ---
Author [facility] Address [facility] [address] [place] [id number] Care Team Providers Care Rn Clinical Resource Name Role Phone Berny Reynoso Primary Care Provider [phone] Allergies No Known Allergies Reason For Referral Diagnosis 1 Thickening of wall o f gallbladder (K82.8) Diagnosis 2 RUQ abdominal pain ( R10.11) Diagnosis 3 Elevated LFTs (R79.8 9) Referral Organization [facility] Referring Provider First Name Berny Referring Provider Last Name Edgardo Referring Provider Speciality Family Pra ctice Referred Provider KAILASH QUINTANA Referred Provider Specialty General Surg phyllis General Notes Keena Peña 2024 11:39:08 AM > 12/16/2024 at 2:00pm; patient informed Referral Priority Routine REASON FOR VISIT [facility] Discharge F/U Medications Medication SIG (Take, Route, Fr equency, Duration) Notes Start Date End Date Status dexAMETHasone 2 MG 1 tablet Orally Once a day Active Simvastatin 40 MG 1 tablet in the even ing Orally Once a day; Duration: 30 days Ac tive Sertraline HCl 25 MG 1 tablet Orally Onc e a day; Duration: 30 days Active Ondansetron 4 MG 1 tablet on the tong ue and allow to dissolve Orally Once a day Active Vital Signs Blood pressure systolic 134 mm Hg 12/15/19 25 Blood pressure diastolic 78 mm Hg 025 Heart Rate 96 /min 12/14/2024 Height 68 in 12/14/2024 Weight 191.4 lbs 12/14/2024 BMI 29.1 kg/m2 12/14/2024 Encounters Encounter Location Date Provider Diagnosis [facility] [address] [place] [id number] 12/14/2024 Berny [place] RUQ abdominal pain R10.11 ; Thickening of wall of gallbladder K82.8 and Elevated LFTs R79.89 Assessments Encounter Date Diagnosis (ICD Code) Assessment Notes Treatment Notes Treatment Clinical Notes Section Notes 12/14/2024 RUQ abdominal pain (ICD-10 - R10.11) 12/14/2024 Thickening of wall of gallbladder (ICD-10 - K82.8) 12/14/2024 Elevated LFTs (ICD-10 - R79.89) Plan Of Treatment Pending Test Test Name Order Date H-CBC 12/14/2024 H-Amylase 12/14/2024 H-Lipase 12/14/2024 H-CMP 12/14/2024 Referrals Referral Date Details 12/14/2024 12/14/2024, KAILASH QUINTANA Next Appt Details Follow Up: via phone to repo rt test results, Reason: Progress Notes * IRENE, JESSICADOB:1960 (64 yo F)Acc No.[id number]:12/14/2024 Patient: JESSICA RAMAN Provider: Vinicio Reynoso M.D. :1960 A ge:64 Y S ex:Female Date:12/14/2024 Address:[address] [place] [address], [id number] Subjective: * Chief Complaints: * 1 . [facility] Discharge F/U. * HPI: H PI: 64 year old female presents with c/o Here for follow up on:?[facility] hospitalization. Pt went to er for migraine headache. Pt dx with pneumonia and mild gallbladder wall thickening. Pt states she is feeling alot better but is not all the way there yet . * ROS: D ERMATOLOGY: no R sukhi. n o H wilda. G ASTROENTEROLOGY: no N ausea. n o V omiting. U ROLOGY: no D ifficulty urinating. n o B lood in urine. * Medical History: H yperlipidemia. * Surgical History: H ysterectomy Abdominal . * Hospitalization/Major Diagno stic Procedure: H chest pains 06/06/13. * Family History: F ather: alive 66 yrs. M other: alive 64 yrs. P aternal Grand Father: . P aternal Grand Mother: . M aternal Grand Father: . M aternal Grand Mother: alive. 2 brother(s) . 1 son(s) . . * Social History: C URRENT TOBACCO USE: No . C affeine: yes, frequency:some. Exercise: yes. Home smoke detector use: yes. Marital Status: . New since last visit: none. Occupation: yes. Past smoking status: no. Occup. exposure: none. Recreational drug use: no. Alcohol: no. Sexually active: yes. Travel ouside [place]: no. * Medications: T aking Ondansetron 4 MG Tablet Disintegrating 1 tablet on the tongue and allow to dissolve Orally Once a day , Taking dexAMETHasone 2 MG Tablet 1 tablet Orally Once a day , Taking Simvastatin 40 MG Tablet 1 tablet in the evening Orally Once a day , Taking Sertraline HCl 25 MG Tablet 1 tablet Orally Once a day , Discontinued Contrave 8-90 MG Tablet Extended Release 12 Hour take 1 tab qd x 1 week; then 1 tab bid x 1 week ;then 2 tabs qam and 1 in pm x 1 week Orally Once a day , Discontinued Wegovy 0.25 MG/0.5ML Solution Auto-injector 0.5 ml Subcutaneous weekly , Medication List reviewed and reconciled with the patient * Allergies: N .K.D.A. Objective: * Vitals: W t: 191.4, Temp: 97.8, BP: 134/78, HR: 96, O2 Sat: 96% on RA, Nurse: jacoby, Ht: 68, BMI:29.1. * Examination: G eneral Examination: General Appearance: N AD. H eart: R SR. L ungs:?clear to auscultation. A bdomen: b owel sounds present, soft, minimal RUQ tenderness to palpation. Assessment: * Assessment: 1. R UQ abdominal pain - R10.11 (Primary) 2 . T hickening of wall of gallbladder - K82.8 3 . E levated LFTs - R79.89 Plan: * Treatment: 2. T hickening of wall of gallbladder L AB: H-CBC L AB: H-Amylase L AB: H-Lipase L AB: H-CMP Referral To:KAILASH QUINTANA General Andreea Reason: 3. E levated LFTs L AB: H-CBC L AB: H-Amylase L AB: H-Lipase L AB: H-CMP Referral To:KAILASH QUINTANA General Surgery Reason: * Follow Up: v ia phone to report test results * Images: Billing Information: * Visit Code: 35443 Office Visit, Est Pt., Level 4. * Procedure Codes: * Electronic signature of Elizabeth Reynoso MD on 12/16/2024 at 07:31 AM EDT Sign off status: Pending * Provider: Viincio Reynoso M.D. Date: 12/14/2024 [facility]/eTransmitting on: 12/16/2024 07:31 AM EDT History and Physical Notes * HPI (History of Present Illness) Category Sub-Category Detail Notes Category Not es HPI Here for follow up on: [facility] hospi talization. Pt went to er for migraine headache. Pt dx with pneumonia and mild gallbladder wall thickening. Pt states she is feeling alot better but is not all the way there yet Examination Category Sub-Category Detail Notes Category Not es General Examination Heart: RSR Lungs: clear to auscultatio n Abdomen: bowel sounds present , soft, minimal RUQ tenderness to palpation General Appearance: NAD Consultation Request Notes Referral Date Referring Provider Referred Provider Not es 12/14/2024 Berny Reynoso CHARLES
--- OUTSIDE RECORDS SUMMARY | 2024-12-16 07:31 | XMS_ITS | Clinical Summary ---
Author Organization [facility] Address [address] [place] [address] Phone Care Team Providers Care Para Professional Name Role Phone Sanjiv Harris MD Primary Care Provider [phone] Allergies No known active allergies Medications simvastatin [...] EDT Impressions 10/24/2022 8:45 AM EDT Negative (NNQ-Xurxutom-6) ~ RECOMMENDATION: Routine screening mammogram in 1 [...] the next mammogram, in accordance with the [employer] and the Society of Breast Imaging recommendations. Narrative 10/24/2022 8:45 AM EDT Procedure:MM MAMMO DIGITAL DAMIEN SCREEN BILAT ~ Reason for exam: screening, asymptomatic. Z12.31-Encounter for screening mammogram for malignant neoplasm of krtcdx-LVP-38-CM ~ MM MAMMO DIGITAL DAMIEN SCREEN BILAT [...] for screening mammogram for malignant neoplasm of myfwgo-XVX-90-CM ~ MM MAMMO DIGITAL DAMIEN SCREEN BILAT Bilateral CC and MLO view(s) were taken. The breast tissue is heterogeneously dense. This may lower thesensitivity of mammography. Prior study comparison: Compared with prior studies the most recentbeing 08/02/16 No mammographic evidence of malignancy. ~ IMPRESSION: Negative (MMY-Zugkwbbh-7) ~ RECOMMENDATION: Routine screening mammogram in 1 [...] the next mammogram, in accordance with the [employer] and the Society of Breast Imaging recommendations. us Godfrey Duran MD IMG MAMMOGRAPHY ORDERABLES Fin al Result * HEPATITIS C ANTIBODY - SCREENING (12/25/2016 9:24 AM EDT) Hep C Ab Negative Negative [facility] Blood specimen (specimen) UPPER LIMB STRUCTURE / Unknown 12/25/2016 9:24 AM EDT 12/25/2016 4:20 PM EDT us Josie Rust MD HEMATOLOGY ORDERABLES Sayra l Result Performing Organization Address City/State/[facility] Co de Phone Number [facility] [address] [place] [address] from Last 3 Months or Most Recently Relevant to Health Maintenance Insurance Care Teams Para Professional Relationship Specialty Start Date End Date Sanjiv Harris MD [facility] [address] [place] [phone] PCP - General Family Medicine 12/05/17
--- OUTSIDE RECORDS SUMMARY | 2024-12-16 07:31 | XMS_ITS | Patient Health Record ---
Author Organization [facility] Address [address] [facility] [address] [id number] Care Team Providers Care Diamond Merchant Name Role Phone Berny Reynoso Primary Care Provider [phone] Cheryle Brownlee Unavailable [phone] Rylie Mclean Unavailable [phone] Allergies No Known Allergies Results Component Value Reference Range Notes H-Magnesium Reviewed date:12/13/2024 04:56:40 PM Interpretation: Performing Lab: Notes/Report: MG 2.3 1.6-2.3 mg/dl Delta: 1.5 on 12/11/24 H-CMP Reviewed date:12/13/2024 04:56:40 PM Interpretation: Performing Lab: Notes/Report: NA 137 136-145 mmol/L K 4.0 3.5-5.1 mmoL/L CL 106 98-107 mmol/L CO2 24 22.0-30.0 mmol/L GAP 11.0 5-15 mEq/L BUN 13 7-17 mg/dl CREATT 0.80 0.52-1.04 mg/dl Delta: 0.60 on 12/11/24 CRCLE 81 50-200 mL/min GFRAA 87 >60 ML/MIN Delta: 122 on 12/11/24 EGFR 72 >60 ml/min GLU 239 74-100 mg/dl Delta: 107 on 12/11/24 CA 8.6 8.4-10.2 mg/dl BILIT 0.7 0.2-1.3 mg/dl AST 310 14-36 U/L ALT 305 12-78 U/L TP 5.8 6.3-8.2 g/dl ALB 3.5 3.5-5.0 g/dl Delta: 3.1 on 12/11/24-0020 GLOB 2.3 1.3-3.2 g/dL AGRATIO 1.5 1.1-1.8 ALP 261 38-126 U/L H-DIFF Reviewed date:12/13/2024 04:56:40 PM Interpretation: Performing Lab: Notes/Report: DAVEY MANUAL DIFFERENTIAL MANUAL DIFF TCC 100 NEUT%M 69 42-76 % LYMPH%M 18 10-50 % MONO%M 13 2-9 % PLTE Slight Decrease RM Normal H-CBC Reviewed date:12/13/2024 04:56:40 PM Interpretation: Performing Lab: Notes/Report: WBC 3.2 4.8-10.8 K/mm3 RBC 3.73 4.20-5.40 M/mm3 HGB 10.9 12.2-16.2 g/dL HCT 33.6 37.0-47.0 % MCV 90.1 81-99 fl MCH 29.2 27.0-31.2 pg MCHC 32.4 31.8-35.4 g/dL RDW-SD 43.2 RDW 13.2 11.5-17.5 % PLT 128 142-424 K/mm3 MPV 11.6 7.4-10.4 fl NE% 71.8 37.0-80.0 % LY% 14.9 10-50 % MO% 12.4 1.7-9.3 % EO% 0.0 0.1-12.0 % BA% 0.3 0.1-2.0 % NRBC% 0 IG% 0.6 NE# 2.3 1.8-7.8 K/mm3 LY# 0.5 0.7-4.5 K/mm3 MO# 0.4 0.1-1.0 K/mm3 EO# 0.0 0.0-0.4 Kmm3 BA# 0.0 0-0.2 K/mm3 NRBC# 0 IG# 0.02 H-CMP Reviewed date:12/13/2024 04:56:40 PM Interpretation:AST 105, [...] AST 105 14-36 U/L Delta: 310 on 12/11/24 ALT 237 12-78 U/L TP 6.5 6.3-8.2 g/dl ALB 4.2 3.5-5.0 g/dl GLOB 2.3 1.3-3.2 g/dL AGRATIO 1.8 1.1-1.8 ALP 273 38-126 U/L H-CBC Reviewed date:12/13/2024 04:56:40 PM Interpretation: Performing [...] 0.0 0-0.2 K/mm3 NRBC# 0 IG# 0.13 Ultrasound : Abdomen limited Reviewed date:12/15/2024 12:21:22 PM Interpretation:mild gallbladder wall thickening Performing Lab: Notes/Report: mild gallbladder wall thickening Ultrasound : Abdomen limited Reviewed date:12/15/2024 12:21:22 PM Interpretation:mild gallbladder wall thickening Performing Lab: Notes/Report: mild gallbladder wall thickening Influenza Screen (in house) Reviewed date:05/05/2024 11:03:45 [...] Duration) Notes Start Date End Date Status Ondansetron 4 MG 1 tablet on the tong ue and allow to dissolve Orally Once a day Active dexAMETHasone 2 MG 1 tablet Orally Once a day Active Simvastatin 40 MG 1 tablet in the even ing Orally Once a day; Duration: 30 days Ac tive Sertraline HCl 25 MG 1 tablet Orally Onc e a day; Duration: 30 days Active Immunizations Vaccine Route Administration Date Status Comme nts xFlu shot-36 months and older IM Intramuscular 04/30/2005 Administered xFlu shot-36 months and older Unknown 03/22/2016 Administered xFlu shot- 6months-36 months of fav-VTIC-QYRZ-trivalent Unknown 03/22/2016 Administered Shingrix IM Intramuscular 05/02/2021 [...] Status W/U Status Risk Notes Problem Hyperlipidemia (43800304) Hyperlipidemia (272.4) Active confirmed Problem Insomnia (795354944) Insomnia (G47.00) Active c onfirmed Problem Hyperlipidemia (28500741) Hyperlipidemia (E78.5) Active confirmed Problem Paresthesia (24520310) Paresthesia (R20.2) Active confirmed Problem Flank pain (615120856) Flank pain (R10.9) Active confirmed Problem Leukopenia (98388695) Decreased white blood cell count, unspecified (D72.819) Active confirmed Problem Polyarthritis (765859162) Polyarthritis (M13.0) Active confirmed Problem Pure hypercholesterolemia (590658775) Pure hypercholesterolemia (E78.00) Active confirmed Problem Urge incontinence of urine (00043049) Urge incontinence of urine (N39.41) Active confirmed Problem Gastroesophageal reflux disease (727249217) Gastroesophageal reflux disease, unspecified whether esophagitis present (K21.9) Active confirmed Vital Signs Heart Rate 96 /min 12/14/2024 Blood pressure diastolic 78 mm Hg 12/14/2024 Height 68 in 12/14/2024 Blood pressure systolic 134 mm Hg 12/14/2024 Weight 191.4 lbs 12/14/2024 BMI 29.1 kg/m2 12/14/2024 Encounters Encounter Location Date Provider Diagnosis [facility] [address] [place], [place] [id number] 01/06/2024 Cheryle Brownlee Weight loss R63.4 ; Tick bite W57.XXXA and Hyperlipidemia E78.5 [facility] [address] [place], [place] [id number] 01/08/2024 Cheryle Brownlee Hyperlipidemia E78.5 and Weight loss R63.4 [facility] [address] [place], [place] [id number] 05/05/2024 Ryile Crowdy Acute URI J06.9 [facility] [address] [place], [place] [id number] 08/02/2024 Cheryle Brownlee Weight gain R63.5 an d Weight loss counseling, encounter for Z71.3 [facility] [address] [facility] [address] [place], [place] [id number] 12/14/2024 Berny [place] RUQ abdominal pain R10.11 ; Thickening of wall of gallbladder K82.8 and Elevated LFTs R79.89 [facility] [address] [facility] [address] [place], [place] [id number] 01/07/2024 Cheryle Brownlee [facility] [address] [place], [place] [id number] 01/12/2024 Berny Bomont [facility] [address] [place], [place] [id number] 01/13/2024 Berny Bomont [facility] [address] [place] [id number] 08/03/2024 Cheryle Brownlee [facility] [address] [facility] [address] [facility] [address] [place], [place] [id number] 12/13/2024 Berny Bomont Decreased white bloo d cell count, unspecified D72.819 and Elevation of levels of liver transaminase levels R74.01 [facility] [address] [facility] [address] [place], [place] [id number] 12/13/2024 Berny Bomont Assessments Encounter Date Diagnosis (ICD Code) Assessment [...] Z71.3) discussed plan for weight loss 12/13/2024 Decreased white blood cell count, unspecified (ICD-10 - D72.819) 12/14/2024 RUQ abdominal pain (ICD-10 - R10.11) 12/14/2024 Thickening of wall of gallbladder (ICD-10 - K82.8) 12/13/2024 Elevation of levels of liver transaminase levels (ICD-10 - R74.01) 12/14/2024 Elevated LFTs (ICD-10 - R79.89) 01/08/2024 Hyperlipidemia (ICD-10 - E78.5) 01/06/2024 Hyperlipidemia (ICD-10 - E78.5) 01/08/2024 Weight loss (ICD-10 - R63.4) 01/06/2024 Other to RTC fasting for CMP, A1c TSH, and Lipids Plan Of Treatment Pending Test Test Name Order Date H-CBC 12/14/2024 H-Amylase 12/14/2024 H-Lipase 12/14/2024 H-CMP 12/14/2024 Insurance Providers Payer Name Payer Address Payer Phone Subscriber Number Group Number Insured Name Patient Relationship to Insured Coverage Start Date Coverage End Date [employer] [address] [place] [address] [id number] JESSICA BONILLA Self - patient is the [...] (General) History Medical History History ICD Code Hyperlipidemia Surgical History Surgery Date(Month/Year) Hysterectomy Abdominal Hospitalization History Reason Date(Month/Year) [facility] chest pains 06/06/13
--- OUTSIDE RECORDS SUMMARY | 2024-12-16 07:32 | XMS_ITS | Clinical Summary ---
Author Organization [facility] ystem Address [address] [place] [id number] Care Team Providers Care Protection Consultant Name Role Phone Unavailable Primary Care Provider [...]
[2024-12-16 08:12] LABS: Hematocrit 38.8 % (37.0-47.0); Hemoglobin 12.7 g/dL (12.2-16.2); Immature Granulocytes % 5.7 %; Mean Corpuscular HGB Conc 32.7 g/dL (31.8-35.4); Mean Corpuscular Hemoglobin 29.5 pg (27.0-31.2); Mean Corpuscular Volume 90.2 fl (81-99); Nucleated Red Blood Cells % 0 %; Platelet Count 454 K/mm3 (142-424); Red Blood Count 4.30 M/mm3 (4.20-5.40); Red Cell Distribution Width-SD 42.9 fL; White Blood Count 16.8 K/mm3 (4.8-10.8)
[2024-12-16 08:48] LABS: Alanine Aminotransferase 195 U/L (12-78); Albumin Level 4.8 g/dl (3.5-5.0); Albumin/Globulin Ratio 1.8 (1.1-1.8); Alkaline Phosphatase 214 U/L (38-126); Amylase 64 U/L (30-110); Anion Gap 13.7 mEq/L (5-15); Aspartate Amino Transferase 78 U/L (14-36); Bilirubin,Total 0.9 mg/dl (0.2-1.3); Blood Urea Nitrogen 20 mg/dl (7-17); Calcium 9.9 mg/dl (8.4-10.2); Carbon Dioxide 29 mmol/L (22.0-30.0); Chloride 99 mmol/L (98-107); Creatinine,Serum 0.70 mg/dl (0.52-1.04); Estimated Glomerular Filt Rate 84 ml/min (>60); GFR (African American) 102 ML/MIN (>60); Globulin 2.7 g/dL (1.3-3.2); Glucose 106 mg/dl (74-100); Lipase 155 U/L (23-300); Potassium 4.7 mmoL/L (3.5-5.1); Sodium 137 mmol/L (136-145); Total Protein,Serum 7.5 g/dl (6.3-8.2)
[2024-12-16 11:19] LABS: RBC Morphology Normal; Total Cells Counted 100
== END 2024-12-16 23:59 | disposition home or self-care (01) ==
LOC: LAB 07:29
PROVIDERS: PCP Family Medicine; Visit Provider Family Medicine
DX: K82.8 Other specified diseases of gallbladder (principal); R79.89 Other specified abnormal findings of blood chemistry; R10.11 Right upper quadrant pain
CPT/HCPCS: 36415; 80053; 82150; 83690; 85007; 85025; 85027

== ENCOUNTER 2025-01-11 15:59 | Outpatient (CLI) | payer BC, SELFPAY ==
--- OUTSIDE RECORDS SUMMARY | 2025-01-11 16:02 | XMS_ITS | Clinical Summary ---
Author Organization [facility] ystem Address [address] [place] [phone] Care Team Providers Care Portfolio Mgr Name Role Phone Unavailable Primary Care Provider [...]
--- OUTSIDE RECORDS SUMMARY | 2025-01-11 16:02 | XMS_ITS | Clinical Summary ---
Author Organization [facility] Address [address] [place] [address] Phone Care Team Providers Care Bellows Tester Name Role Phone Sanjiv Harris MD Primary Care Provider [phone] [phone] Allergies No known active allergies Medications simvastatin [...] EDT Impressions 10/24/2022 8:45 AM EDT Negative ([id number]-[id number]-3) ~ RECOMMENDATION: Routine screening mammogram in 1 [...] the next mammogram, in accordance with the [employer] and the Society of Breast Imaging recommendations. Narrative 10/24/2022 8:45 AM EDT Procedure:MM MAMMO DIGITAL DAMIEN SCREEN BILAT ~ Reason for exam: screening, asymptomatic. Z12.31-Encounter for screening mammogram for malignant neoplasm of fffblh-NSO-64-CM ~ MM MAMMO DIGITAL DAMIEN SCREEN BILAT [...] for screening mammogram for malignant neoplasm of hevwnb-MOA-20-CM ~ MM MAMMO DIGITAL DAMIEN SCREEN BILAT Bilateral CC and MLO view(s) were taken. The breast tissue is heterogeneously dense. This may lower thesensitivity of mammography. Prior study comparison: Compared with prior studies the most recentbeing 08/02/16 No mammographic evidence of malignancy. ~ IMPRESSION: Negative (ZVL-Whiiizbd-7) ~ RECOMMENDATION: Routine screening mammogram in 1 [...] the next mammogram, in accordance with the [employer] and the Society of Breast Imaging recommendations. us Godfrey Duran MD IMG MAMMOGRAPHY ORDERABLES Fin al Result * HEPATITIS C ANTIBODY - SCREENING (12/25/2016 9:24 AM EDT) Hep C Ab Negative Negative [facility] Blood specimen (specimen) UPPER LIMB STRUCTURE / Unknown 12/25/2016 9:24 AM EDT 12/25/2016 4:20 PM EDT us Josie Rust MD HEMATOLOGY ORDERABLES Sayra l Result Performing Organization Address City/State/[facility] Co de Phone Number [facility] [address] [place] [address] from Last 3 Months or Most Recently Relevant to Health Maintenance Insurance [address] [facility] Care Teams Bellows Tester Relationship Specialty Start Date End Date Sanjiv Harris MD [facility] [address] [place] [id number] PCP - General Family Medicine 12/05/17
[2025-01-11 17:09] LABS: Albumin Level 4.6 g/dl (3.5-5.0); Chloride 104 mmol/L (98-107); Sodium 140 mmol/L (136-145)
[2025-01-11 17:10] LABS: Potassium 4.0 mmoL/L (3.5-5.1)
[2025-01-11 17:12] LABS: Alanine Aminotransferase 24 U/L (12-78); Albumin/Globulin Ratio 1.6 (1.1-1.8); Alkaline Phosphatase 103 U/L (38-126); Anion Gap 12.0 mEq/L (5-15); Aspartate Amino Transferase 30 U/L (14-36); Bilirubin,Total 0.4 mg/dl (0.2-1.3); Blood Urea Nitrogen 15 mg/dl (7-17); Calcium 8.9 mg/dl (8.4-10.2); Carbon Dioxide 28 mmol/L (22.0-30.0); Creatinine,Serum 0.60 mg/dl (0.52-1.04); Estimated Glomerular Filt Rate 101 ml/min (>60); GFR (African American) 122 ML/MIN (>60); Globulin 2.8 g/dL (1.3-3.2); Glucose 122 mg/dl (74-100); Lipase 103 U/L (23-300); Total Protein,Serum 7.4 g/dl (6.3-8.2)
== END 2025-01-11 23:59 | disposition home or self-care (01) ==
LOC: LAB 15:59
PROVIDERS: PCP Family Medicine; Visit Provider Nurse Practitioner Family
DX: R74.8 Abnormal levels of other serum enzymes (principal)
CPT/HCPCS: 36415; 80053; 83690

== ENCOUNTER 2025-03-08 10:37 | Outpatient (CLI) | payer BC, SELFPAY ==
--- OUTSIDE RECORDS SUMMARY | 2025-03-08 10:42 | XMS_ITS | Clinical Summary ---
Author Organization [facility] Address [address] [place] [address] Phone Care Team Providers Care Explosive Technician Name Role Phone Sanjiv Harris MD Primary Care Provider [phone] Allergies No known active allergies Medications simvastatin [...] on file Sexual Orientation Not on file Last Filed Vital Signs Vital Sign Reading [...] 2) 2010 Annual Wellness Exam 12/25/2017 12/25/2016 Breast Cancer Screening 10/24/2024 10/24/2022, 08/02 COVID-19 Vaccine ( season) 2025 05/02/2023, 04/14/2021 Influenza Vaccine (#1) 2025 , 02/22/2020, 02/25/2017, [...] Date/Time Associated Diagnosis Comments MM MAMMO DIGITAL DAMEIN SCREEN BILAT Routine 10/24/2022 7:32 AM EDT [...] EDT Impressions 10/24/2022 8:45 AM EDT Negative (DCZ-Zlnrlaqs-2) ~ RECOMMENDATION: Routine screening mammogram in 1 [...] the next mammogram, in accordance with the [employer] and the Society of Breast Imaging recommendations. Narrative 10/24/2022 8:45 AM EDT Procedure:MM MAMMO DIGITAL DAMIEN SCREEN BILAT ~ Reason for exam: screening, asymptomatic. Z12.31-Encounter for screening mammogram for malignant neoplasm of oyvmjm-KOO-92-CM ~ MM MAMMO DIGITAL DAMIEN SCREEN BILAT [...] for screening mammogram for malignant neoplasm of pslsvl-PQR-03-CM ~ MM MAMMO DIGITAL DAMIEN SCREEN BILAT Bilateral CC and MLO view(s) were taken. The breast tissue is heterogeneously dense. This may lower thesensitivity of mammography. Prior study comparison: Compared with prior studies the most recentbeing 08/02/16 No mammographic evidence of malignancy. ~ IMPRESSION: Negative (CEB-Gdtrnuto-5) ~ RECOMMENDATION: Routine screening mammogram in 1 [...] the next mammogram, in accordance with the [employer] and the Society of Breast Imaging recommendations. us Godfrey Duran MD IMG MAMMOGRAPHY ORDERABLES Fin al Result * HEPATITIS C ANTIBODY - SCREENING (12/25/2016 9:24 AM EDT) Hep C Ab Negative Negative [facility] Blood specimen (specimen) UPPER LIMB STRUCTURE / Unknown 12/25/2016 9:24 AM EDT 12/25/2016 4:20 PM EDT us Josie Rust MD HEMATOLOGY ORDERABLES Sayra l Result Performing Organization Address City/State/[facility] Co de Phone Number [facility] [address] [place] [address] from Last 3 Months or Most Recently Relevant to Health Maintenance [place] [address] [address] [place] [address] Care Teams Explosive Technician Relationship Specialty Start Date End Date Sanjiv Harris MD [address] [facility] [address] [place] [address] PCP - General Family Medicine 12/05/17
--- OUTSIDE RECORDS SUMMARY | 2025-03-08 10:42 | XMS_ITS | Clinical Summary ---
Author Organization [facility] Address [address] [place] [id number] Care Team Providers Care Mulling Machine Operator Name Role Phone Unavailable Primary Care Provider [...] 2010 ZOSTER VACCINE (1 of 2) 2010 INFLUENZA VACCINE 12/24/2024
[2025-03-08 12:01] LABS: Alanine Aminotransferase 25 U/L (12-78); Albumin Level 4.5 g/dl (3.5-5.0); Albumin/Globulin Ratio 1.7 (1.1-1.8); Alkaline Phosphatase 106 U/L (38-126); Anion Gap 17.8 mEq/L (5-15); Aspartate Amino Transferase 58 U/L (14-36); Bilirubin,Total 1.3 mg/dl (0.2-1.3); Blood Urea Nitrogen 17 mg/dl (7-17); Calcium 9.2 mg/dl (8.4-10.2); Carbon Dioxide 17 mmol/L (22.0-30.0); Chloride 109 mmol/L (98-107); Creatinine,Serum 0.80 mg/dl (0.52-1.04); Estimated Glomerular Filt Rate 72 ml/min (>60); GFR (African American) 87 ML/MIN (>60); Globulin 2.7 g/dL (1.3-3.2); Glucose 86 mg/dl (74-100); Potassium 4.8 mmoL/L (3.5-5.1); Sodium 139 mmol/L (136-145); Total Protein,Serum 7.2 g/dl (6.3-8.2)
== END 2025-03-08 23:59 | disposition home or self-care (01) ==
LOC: LAB 10:38
PROVIDERS: PCP Family Medicine; Visit Provider Nurse Practitioner Family
DX: R74.8 Abnormal levels of other serum enzymes (principal)
CPT/HCPCS: 36415; 80053

== ENCOUNTER 2025-04-26 11:39 | Outpatient (CLI) | payer BC, SELFPAY ==
--- NOTE | 2025-04-26 | ECG_ITS ---
APPROVED REPORT Exam: Resting ECG HR:59 bpm ECG Measurements Heart Rate 59 AXES IL 161 P 0 QRSd 84 QRS 80 QT 394 T 17 QTc 393 Conclusion SINUS BRADYCARDIA BORDERLINE ECG UNCONFIRMED REPORT Electronically signed by : Jj Gonzalez MD 04/27/2025 08:43:57
--- OUTSIDE RECORDS SUMMARY | 2025-04-26 11:42 | XMS_ITS | Clinical Summary ---
Author Organization [facility] Address [address] [place] [id number] Care Team Providers Care Air Grinder Name Role Phone Unavailable Primary Care Provider [...]
--- OUTSIDE RECORDS SUMMARY | 2025-04-26 11:42 | XMS_ITS | Clinical Summary ---
Author Organization [facility] Address [address] [place] [address] Phone Care Team Providers Care Senior It Specialist Name Role Phone Sanjiv Harris MD Primary Care Provider [phone] [phone] Allergies No known active allergies Medications simvastatin [...] EDT Impressions 10/24/2022 8:45 AM EDT Negative (TCG-Gfqgandx-8) ~ RECOMMENDATION: Routine screening mammogram in 1 [...] the next mammogram, in accordance with the [employer] and the Society of Breast Imaging recommendations. Narrative 10/24/2022 8:45 AM EDT Procedure:MM MAMMO DIGITAL DAMIEN SCREEN BILAT ~ Reason for exam: screening, asymptomatic. Z12.31-Encounter for screening mammogram for malignant neoplasm of qjndeu-ZPN-41-CM ~ MM MAMMO DIGITAL DAMIEN SCREEN BILAT [...] for screening mammogram for malignant neoplasm of zahefr-RBN-36-CM ~ MM MAMMO DIGITAL DAMIEN SCREEN BILAT Bilateral CC and MLO view(s) were taken. The breast tissue is heterogeneously dense. This may lower thesensitivity of mammography. Prior study comparison: Compared with prior studies the most recentbeing 08/02/16 No mammographic evidence of malignancy. ~ IMPRESSION: Negative (JJW-Lrpbizoi-4) ~ RECOMMENDATION: Routine screening mammogram in 1 [...] the next mammogram, in accordance with the [employer] and the Society of Breast Imaging recommendations. us Godfrey Duran MD IMG MAMMOGRAPHY ORDERABLES Fin al Result * HEPATITIS C ANTIBODY - SCREENING (12/25/2016 9:24 AM EDT) Hep C Ab Negative Negative [facility] Blood specimen (specimen) UPPER LIMB STRUCTURE / Unknown 12/25/2016 9:24 AM EDT 12/25/2016 4:20 PM EDT us Josie Rust MD HEMATOLOGY ORDERABLES Sayra l Result Performing Organization Address City/State/[facility] Co de Phone Number [facility] [address] [place] [address] from Last 3 Months or Most Recently Relevant to Health Maintenance [place] [address] [address] Care Teams Senior It Specialist Relationship Specialty Start Date End Date Sanjiv Harris MD [address] [facility] [address] [facility] [place] [place] [address] PCP - General Family Medicine 12/05/17
== END 2025-04-26 23:59 | disposition home or self-care (01) ==
LOC: RT 11:40
PROVIDERS: PCP Nurse Practitioner Family; Visit Provider Nurse Practitioner Family
DX: R00.1 Bradycardia, unspecified (principal); R94.31 Abnormal electrocardiogram [ECG] [EKG]; R07.9 Chest pain, unspecified
CPT/HCPCS: 93005

== ENCOUNTER 2025-05-02 15:10 | Outpatient (CLI) | payer BC, SELFPAY ==
--- NOTE | 2025-05-02 15:19 | US_ITS ---
PROCEDURE INFORMATION: Exam: US Right Breast, Complete Exam date and time: 05/02/2025 3:50 PM Age: 64 years old Clinical indication: Breast pain; Right TECHNIQUE: Imaging protocol: Complete ultrasound of all four quadrants of the right breast and the retroareolar regions, including ultrasound of the axilla when performed. COMPARISON: MG MM DIG MAMM BI DX W/CAD 05/02/2025 3:21 PM FINDINGS: ULTRASOUND: Breast ultrasound findings: No mass identified. Normal Nodes in the right axilla: 1.26x 0.59x 0.87 cm IMPRESSION: No sonographic evidence of malignancy. Annual mammographic screening is recommended unless otherwise clinically indicated. ASSESSMENT: BI-RADS Category 1: Negative.
--- NOTE | 2025-05-02 15:19 | US_ITS ---
PROCEDURE INFORMATION: Exam: US Left Breast, Complete Exam date and time: 05/02/2025 3:50 PM Age: 64 years old Clinical indication: Breast pain; Right TECHNIQUE: Imaging protocol: Complete ultrasound of all four quadrants of the left breast and the retroareolar regions, including ultrasound of the axilla when performed. COMPARISON: US BREAST LT COMPLETE 05/02/2025 3:36 PM FINDINGS: ULTRASOUND: Breast ultrasound findings: No mass identified. Nodes in the left axilla measure 0.877 x 0.594 cm IMPRESSION: No sonographic evidence of malignancy. Annual mammographic screening is recommended unless otherwise clinically indicated. ASSESSMENT: BI-RADS Category 1: Negative.
--- NOTE | 2025-05-02 15:19 | MM_ITS ---
PROCEDURE INFORMATION: Exam: MG Bilateral Diagnostic Breast Tomosynthesis Exam date and time: 05/02/2025 3:21 PM Age: 64 years old Clinical indication: Short-term radiographic followup; Left breast; mass, right breast pain TECHNIQUE: Imaging protocol: Bilateral Diagnostic tomosynthesis and 2D mammography including computer-aided detection (CAD) when performed. Unilateral or bilateral exam. COMPARISON: 1. MG MM DIG MAMM DX UNILAT LT CAD 11/17/2024 1:49 PM 2. MG MM DIG SCREENING MAMM BI W/CAD 11/03/2024 8:00 AM FINDINGS: MAMMOGRAPHY: Breast composition: There are scattered areas of fibroglandular density. Breast mammogram findings: There is no stellate mass, architectural distortion or suspicious microcalcifications in either breast to suggest malignancy. No skin thickening or axillary adenopathy. Less apparent mass/asymmetry in the left upper outer quadrant. IMPRESSION: Patient to return for bilateral breast ultrasound for further evaluation of breast pain as well as to reassess a focal area of hypoechoic tissue seen on sonography in the upper outer quadrant 8 cm from the nipple ASSESSMENT: BI-RADS Category 0: Incomplete- Need Additional Imaging Evaluation
== END 2025-05-02 23:59 | disposition home or self-care (01) ==
LOC: RAD 15:11
PROVIDERS: PCP Nurse Practitioner Family; Visit Provider Nurse Practitioner Family
DX: N63.21 Unspecified lump in the left breast, upper outer quadrant (principal); N64.4 Mastodynia; N64.59 Other signs and symptoms in breast; R92.323 Mammographic fibroglandular density, bilateral breasts
CPT/HCPCS: 76641; 77062; 77066; G0279